=== PATIENT | female | born 1945 | race Caucasian/White ===

== ENCOUNTER 2017-11-09 09:51 | Outpatient (CLI) | payer MEDICARE ==
[2017-11-09 11:18] LABS: Anion Gap 17 mmol/L (10-20); BUN (Urea Nitrogen) 22 mg/dL (9.8-20.1); Calc. Creatinine Clearance 0 mL/min (70-130); Calcium 9.9 mg/dL (7.8-10.44); Carbon Dioxide 26 mmol/L (23-31); Chloride 103 mmol/L (98-107); Estimated GFR-MDRD 48; Glucose 268 mg/dL (83-110); Sodium 142 mmol/L (136-145)
== END 2017-11-09 09:52 | disposition home or self-care (01) ==
LOC: LABBT 09:51
PROVIDERS: ATTEND Neurological Surgery
DX: Z01.818 Encounter for other preprocedural examination (principal); M48.061 Spinal stenosis, lumbar region without neurogenic claudication
CPT/HCPCS: 80048

== ENCOUNTER 2017-11-13 05:41 | Day surgery (SDC) | payer MEDICARE ==
[2017-11-09 10:08] VITALS: BMI 42.5
--- NOTE | 2017-11-13 05:54 | HP ---
HISTORY OF PRESENT ILLNESS: Ms. Leary is a 72-year-old woman who presents for evaluation for roughl y 5 years or so with low back pain and neurogenic claudication symptoms. She has had this previously treated with injections which resulted in significant improvement but then her pain has been worseni ng again. She has repeat MRI that shows progressive change in her spinal stenosis. Right now, she h as severe canal stenosis at L3-L4 with associated slip but is not unstable on flexion, extension view s. She hopes to treat this surgically if possible. PAST MEDICAL HISTORY: Sleep apnea, sciatica, hypertension, hypercholesterolemia, arthritis, diabetes , and breast cancer. PAST SURGICAL HISTORY: Shoulder replacement, cataract resection, knee replacement, breast lumpectomy . CURRENT MEDICATIONS: Invokana, glucosamine, PreserVision gabapentin, glimepiride, Celebrex, metoprol ol, ,tamoxefin, Zyrtec, Lantus and Victoza. ALLERGIES: No known drug allergies. PHYSICAL EXAMINATION: NEUROLOGIC: Patient is alert and oriented x3. Gait is somewhat slow and antalgic. She has no weak ness in the lower extremities bilaterally. ASSESSMENT: Neurogenic claudication in the presence of lumbar stenosis. PLAN: Dr. Fang met with the patient, reviewed imaging and advocated for an L3-L4 decompression. He explained to the patient the risks, benefits, and alternatives to the procedure. The patient expres sed understanding and would like to move forward with surgery as discussed. I do believe the patient is mentally competent and capable of making medical decisions for herself and move forward with surg porfirio as planned.
[2017-11-13] MEDS ORDERED: Bupivacaine 0.5% 10 ML VIAL ONE (06:17)
[2017-11-13] MEDS ORDERED: Thrombin 5000 UNITS/5 ML VIAL ONE (06:17)
[2017-11-13] MEDS ORDERED: CEFAZOLIN/Water 2 GM/20 ML SYRINGE ONE ×2 (06:34→10:19)
[2017-11-13] MEDS ORDERED: Fentanyl 100 MCG/2 ML VIAL ONE ×2 (06:44→09:06)
--- NOTE | 2017-11-13 09:55 | OP ---
DATE OF PROCEDURE: 11/13/2017 SURGEON: Porfirio Fang M.D. [employer]OR ATTENDANT: Jr Wells PA-C. INDICATION: Pain. DIAGNOSIS: Lumbar stenosis. PROCEDURE: L3-L4 lumbar decompression. ANESTHESIA: General. TECHNIQUE: The patient was brought into the operating room and placed under general anesthesia. She was flipped from a supine to a prone position on the operating room table. A linear incision was pl anned over the L3-L4 segment. After prepping and draping and after an appropriate operative pause, t he incision was created. Soft tissues were swept away from midline. Self-retaining retractors were placed in the wound for optimal exposure. After confirming the appropriate level with C-arm fluorosc opy, an Adson rongeur was used to remove the spinous process at the L3-L4 segment. A high-speed cutt ing drill bit as well as 2, 3 and 4-mm Kerrisons were then used to perform a laminectomy along the in ferior aspect of L3 and superior aspect of L4. After decompressing the central canal and lateral rec esses, the wound was irrigated. Hemostasis was maintained throughout. The wound was then closed in anatomic layers and a pressure dressing was applied. There were no known procedural complications.
[2017-11-13] MEDS ORDERED: Ketorolac Tromethamine 30 MG/ML VIAL ONE (16:45)
[2017-11-13] MEDS ORDERED: PHENYLEPHRINE-NS 100 MCG/ML 10 ML SYRINGE ONE (16:45)
[2017-11-13] MEDS ORDERED: Glycopyrrolate 0.2 MG/ML 5 ML SYRINGE ONE (16:45)
[2017-11-13] MEDS ORDERED: Ondansetron HCl/PF 4 MG/2 ML Vial ONE (16:45)
[2017-11-13] MEDS ORDERED: Lidocaine 1% PF 5 ML VIAL ONE (16:45)
[2017-11-13] MEDS ORDERED: Propofol 200 MG/20 ML VIAL ONE (16:45)
[2017-11-13] MEDS ORDERED: Dexamethasone 20 MG/5 ML VIAL ONE (16:45)
== END 2017-11-13 10:55 | disposition home or self-care (01) ==
LOC: SDC 05:41
PROVIDERS: ATTEND Neurological Surgery
PROC: 01NB0ZZ Release Lumbar Nerve, Open Approach (ICD-10-PCS; principal; 2017-11-13)
DX: M48.062 Spinal stenosis, lumbar region with neurogenic claudication (principal); M54.30 Sciatica, unspecified side; E78.00 Pure hypercholesterolemia, unspecified; M19.90 Unspecified osteoarthritis, unspecified site; C50.919 Malignant neoplasm of unspecified site of unspecified female breast; G47.33 Obstructive sleep apnea (adult) (pediatric); K52.9 Noninfective gastroenteritis and colitis, unspecified; E10.22 Type 1 diabetes mellitus with diabetic chronic kidney disease; I12.9 Hypertensive chronic kidney disease with stage 1 through stage 4 chronic kidney disease, or unspecified chronic kidney disease; N18.9 Chronic kidney disease, unspecified; Z79.1 Long term (current) use of non-steroidal anti-inflammatories (NSAID); Z79.810 Long term (current) use of selective estrogen receptor modulators (SERMs); Z79.899 Other long term (current) drug therapy; Z99.89 Dependence on other enabling machines and devices; Z98.42 Cataract extraction status, left eye; Z98.41 Cataract extraction status, right eye; Z96.651 Presence of right artificial knee joint; Z96.612 Presence of left artificial shoulder joint; Z96.619 Presence of unspecified artificial shoulder joint; Z96.1 Presence of intraocular lens; Z90.89 Acquired absence of other organs; Z98.890 Other specified postprocedural states
CPT/HCPCS: 36416; 76001; 96374; J1100; J1885; J2001; J2405; J2704; J3010; J3490

== ENCOUNTER 2018-07-16 09:38 | Outpatient (CLI) | payer MEDICARE ==
--- NOTE | 2018-07-16 11:37 | ULT ---
LIMITED RIGHT BREAST ULTRASOUND: 07/16/2018 CLINICAL HISTORY: Abnormal mammogram. FINDINGS: Limited sonographic interrogation was performed of the right breast, at the 10 o'clock position, in t he region of mammographic concern. There is a round, hypoechoic mass with posterior shadowing and il l-defined margins present, measuring about 6 mm. IMPRESSION: BI-RADS category 4-Suspicious abnormality. Biopsy is recommended. This would be amenable to ultraso und-guided biopsy. POS: KAMALA
== END 2018-07-16 09:39 | disposition home or self-care (01) ==
LOC: BICMAMMO 09:38
PROVIDERS: ATTEND Specialist
DX: C50.911 Malignant neoplasm of unspecified site of right female breast (principal); Z80.3 Family history of malignant neoplasm of breast; Z08 Encounter for follow-up examination after completed treatment for malignant neoplasm; Z85.3 Personal history of malignant neoplasm of breast
CPT/HCPCS: 77063; 77067

== ENCOUNTER 2018-07-28 11:33 | Outpatient (CLI) | payer MEDICARE | END 2018-07-28 11:34 | disposition home or self-care (01) | LOC: BICMAMMO 11:33 | PROVIDERS: ATTEND Specialist | DX: N64.9 Disorder of breast, unspecified (principal); Z98.890 Other specified postprocedural states | CPT/HCPCS: 77063; 77067 ==

== ENCOUNTER 2018-11-18 09:18 | Outpatient (CLI) | payer MEDICARE ==
--- NOTE | 2018-11-18 10:45 | BD ---
DEXA BONE MINERAL DENSITOMETRY EXAM, MINERAL DENSITY STUDY: HISTORY: Unspecified menopausal and perimenopausal disorder. COMPARISON: DEXA scan 11/17/2016. FINDINGS: Lumbar Spine: BMD (g/cm2) L1 1.371 T-Score: 3.5 5.6 L2 1.380 T-Score: 3.2 5.6 L3 1.388 T-Score: 2.8 5.3 L4 1.252 T-Score: 1.7 4.8 L1-L4 1.326 T-Score: 2.6 5.0 WHO classification is normal. Femoral Neck: 0.939 T-Score: 0.8 2.9 Total Femur: 1.129 T-Score: 1.5 3.3 WHO classification normal. The bone mineral density is very similar to the comparison examination. Impression: Similar bone mineral density. POS: KAMALA
== END 2018-11-18 09:19 | disposition home or self-care (01) ==
LOC: BICMAMMO 09:18
PROVIDERS: ATTEND Internal Medicine Hematology & Oncology
DX: Z13.820 Encounter for screening for osteoporosis (principal); N95.9 Unspecified menopausal and perimenopausal disorder; C50.919 Malignant neoplasm of unspecified site of unspecified female breast
CPT/HCPCS: 77080

== ENCOUNTER 2019-02-17 09:15 | Outpatient (CLI) | payer MEDICARE ==
--- NOTE | 2019-02-17 10:03 | MMO ---
Right Breast MAMMO Unilat Diag DDI RT+APOORVA. CLINICAL HISTORY: Patient is 73 years old and is seen for diagnostic exam. The patient has the following family history of breast cancer: mother. 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 The patient has a history of right Ultrasound Guided Core Biopsy in June, - benign, right Lumpectomy in May, and right Ultrasound Guided Core Biopsy in April,. VIEWS: The views performed were: right craniocaudal with tomosynthesis; right mediolateral oblique with tomosynthesis; and right mediolateral. FILMS COMPARED: The present examination has been compared to prior imaging studies performed at [facility] on 05/10/2015, 06/11/2016, 07/14/2017 and 07/16/2018. MAMMOGRAM FINDINGS: The breast is heterogeneously dense, which could obscure a lesion on mammography. There is a stable area of architectural distortion with associated post-surgical scar and biopsy clip seen in the right breast. IMPRESSION: FOLLOW-UP IN 6 MONTHS IS RECOMMENDED. THE RESULTS OF THIS EXAM WERE SENT TO THE PATIENT. ACR BI-RADS Category 3 - Probably benign finding - short interval follow-up suggested. [facility] will notify the patient of the need for additional imaging services. MAMMOGRAPHY NOTE: 1. A negative mammogram report should not delay a biopsy if a dominant of clinically suspicious mass is present. 2. Approximately 10% to 15% of breast cancers are not detected by mammography. 3. Adenosis and dense breasts may obscure an underlying neoplasm.
== END 2019-02-17 09:16 | disposition home or self-care (01) ==
LOC: BICMAMMO 09:15
PROVIDERS: ATTEND Specialist
DX: Z08 Encounter for follow-up examination after completed treatment for malignant neoplasm (principal); Z80.3 Family history of malignant neoplasm of breast; Z85.3 Personal history of malignant neoplasm of breast; Z98.890 Other specified postprocedural states
CPT/HCPCS: 77065; G0279

== ENCOUNTER 2019-08-23 10:05 | Outpatient (CLI) | payer MEDICARE ==
--- NOTE | 2019-08-23 10:53 | MMO ---
Bilateral MAMMO Bilat Diag DDI+APOORAV. CLINICAL HISTORY: Patient is 73 years old and is seen for diagnostic exam. The patient has the following family history of breast cancer: mother. The patient has a history of Ultrasound guided core biopsy procedure revealed invasive ductal right breast carcinoma in April, and invasive ductal right breast carcinoma in 2014. The patient has a history of right Ultrasound Guided Core Biopsy in June, - benign, right Lumpectomy in May, and right Ultrasound Guided Core Biopsy in April,. VIEWS: The views performed were: bilateral craniocaudal with tomosynthesis; bilateral mediolateral oblique with tomosynthesis; and bilateral mediolateral with tomosynthesis. FILMS COMPARED: The present examination has been compared to prior imaging studies performed at [facility] on 06/11/2016, 07/14/2017, 07/16/2018 and 02/17/2019. This study has been interpreted with the assistance of computer-aided detection. MAMMOGRAM FINDINGS: There are scattered fibroglandular densities. Finding 1: There is a stable post-surgical scar seen in the outer region of the right breast. Finding 2: There are multiple stable dystrophic calcifications seen in the right breast. There are no suspicious masses, suspicious calcifications, or new areas of architectural distortion. IMPRESSION: THERE IS NO MAMMOGRAPHIC EVIDENCE OF MALIGNANCY. A ROUTINE FOLLOW-UP MAMMOGRAM IN 1 YEAR IS RECOMMENDED. THE RESULTS OF THIS EXAM WERE SENT TO THE PATIENT. ACR BI-RADS Category 2 - Benign finding MAMMOGRAPHY NOTE: 1. A negative mammogram report should not delay a biopsy if a dominant of clinically suspicious mass is present. 2. Approximately 10% to 15% of breast cancers are not detected by mammography. 3. Adenosis and dense breasts may obscure an underlying neoplasm. Reported by: SAKSHI OWEN MD Electonically Signed: [id number]
== END 2019-08-23 10:06 | disposition home or self-care (01) ==
LOC: BICMAMMO 10:05
PROVIDERS: ATTEND Specialist
DX: Z08 Encounter for follow-up examination after completed treatment for malignant neoplasm (principal); Z85.3 Personal history of malignant neoplasm of breast
CPT/HCPCS: 77066; G0279

== ENCOUNTER 2020-06-07 11:03 | Outpatient (CLI) | payer MEDICARE ==
--- NOTE | 2020-06-07 11:25 | BD ---
EXAM: Bone densitometry using DEXA HISTORY: 74 yo female. Screening for postmenopausal osteoporosis FINDINGS: L1--bone mineral density 1.365 g/sq cm; T score 3.4 ; Z score 5.6 L2--bone mineral density 1.441 g/sq cm; T score 3.8 ; Z score 6.2 L3--bone mineral density 1.309 g/sq cm; T score 2.0 ; Z score 4.6 L4--bone mineral density 1.314 g/sq cm; T score 2.3 ; Z score 5.0 Total L1-L4--bone mineral density 1.356 g/sq cm; T score 2.8 ; Z score 5.3 Left femoral neck--bone mineral density0.962; T score 1.0 ; Z score 3.2 Total proximal left femur--bone mineral density 1.207; T score 2.2 ; Z score 4.0 There has been an interval improvement of 1.5% in the BMD of the lumbar spine and a improvement of 6.9% in the BMD of the proximal femur since the previous study of 11/18/2018. IMPRESSION: Normal BMD
== END 2020-06-07 11:04 | disposition home or self-care (01) ==
LOC: BICMAMMO 11:03
PROVIDERS: ATTEND Family Medicine
DX: M81.0 Age-related osteoporosis without current pathological fracture (principal)
CPT/HCPCS: 77080

== ENCOUNTER 2020-08-15 09:52 | Outpatient (CLI) | payer MEDICARE ==
--- NOTE | 2020-08-15 11:34 | RAD ---
2 VIEW CHEST: Date: 08/15/2020 INDICATION: Preop. COMPARISON: 06/08/2015. FINDINGS: Heart size upper normal and stable. The vascular and interstitial markings are prominent, but similar in appearance to the prior study. Elevated right hemidiaphragm is stable. No evidence of effusion. L eft shoulder prosthesis again noted. Vertebral bodies maintain height with degenerative changes noted . IMPRESSION: Vascular and interstitial prominence similar to prior exam. No evidence of acute interval change. POS: [facility]
== END 2020-08-15 09:53 | disposition home or self-care (01) ==
LOC: BICRAD 09:52
PROVIDERS: ATTEND Family Medicine
DX: Z01.818 Encounter for other preprocedural examination (principal)
CPT/HCPCS: 36415; 71046; 80053; 83036; 85025

== ENCOUNTER 2020-08-28 13:38 | Outpatient (CLI) | payer MEDICARE ==
--- NOTE | 2020-08-28 14:19 | MMO ---
Bilateral MAMMO Bilat Diag DDI+APOORVA. CLINICAL HISTORY: Patient is 74 years old and is seen for diagnostic exam. The patient has the following family history of breast cancer: mother. The patient has a history of Ultrasound guided core biopsy procedure revealed invasive ductal right breast carcinoma in April, and invasive ductal right breast carcinoma in 2014. The patient has a history of right Ultrasound Guided Core Biopsy in June, - benign, right Lumpectomy in May, and right Ultrasound Guided Core Biopsy in April,. VIEWS: The views performed were: bilateral craniocaudal with tomosynthesis; bilateral mediolateral oblique with tomosynthesis; and bilateral mediolateral with tomosynthesis. FILMS COMPARED: The present examination has been compared to prior imaging studies performed at [facility] on 07/14/2017, 07/16/2018, 02/17/2019 and 08/23/2019. This study has been interpreted with the assistance of computer-aided detection. MAMMOGRAM FINDINGS: There are scattered fibroglandular densities. Benign calcifications are noted bilaterally. There are stable right post-operative changes. There are no suspicious masses, suspicious calcifications, or new areas of architectural distortion. IMPRESSION: THERE IS NO MAMMOGRAPHIC EVIDENCE OF MALIGNANCY. A ROUTINE FOLLOW-UP MAMMOGRAM IN 1 YEAR IS RECOMMENDED. THE RESULTS OF THIS EXAM WERE SENT TO THE PATIENT. ACR BI-RADS Category 2 - Benign finding MAMMOGRAPHY NOTE: 1. A negative mammogram report should not delay a biopsy if a dominant of clinically suspicious mass is present. 2. Approximately 10% to 15% of breast cancers are not detected by mammography. 3. Adenosis and dense breasts may obscure an underlying neoplasm. Reported by: MIRIAM GIL MD Electonically Signed: [id number]
== END 2020-08-28 13:39 | disposition home or self-care (01) ==
LOC: BICMAMMO 13:38
PROVIDERS: ATTEND Specialist
DX: Z08 Encounter for follow-up examination after completed treatment for malignant neoplasm (principal); Z85.3 Personal history of malignant neoplasm of breast
CPT/HCPCS: 77066; G0279

== ENCOUNTER 2020-09-05 06:37 | Outpatient (CLI) | payer MEDICARE ==
[2020-09-05 12:22] LABS: #Basophils 0.1 10x3/uL (0.0-0.2); #Eosinphils 0.1 10x3/uL (0.0-0.5); #Monocytes 0.7 10x3/uL (0.0-1.1); #Neutrophils 4.6 10x3/uL (1.5-8.4); %Basophils 0.6 % (0.0-2.0); %Eosinophils 1.6 % (0.0-6.0); %Lymphocytes 37.4 % (18.0-47.0); %Monocytes 8.1 % (0.0-10.0); Hemoglobin 12.5 g/dL (12.0-16.0); Platelet Count 226 10x3/uL (130-400); RBC Distribution Width 12.1 % (11.5-14.5); Red Blood Cell (RBC) Count 3.79 10x6/uL (3.90-5.20); White Blood Cell (WBC) Count 8.8 10x3/uL (4.5-11.0)
== END 2020-09-05 06:38 | disposition home or self-care (01) ==
LOC: LABBT 06:37
PROVIDERS: ATTEND Orthopaedic Surgery
DX: Z01.818 Encounter for other preprocedural examination (principal); M16.0 Bilateral primary osteoarthritis of hip
CPT/HCPCS: 85025; 93005; 93010

== ENCOUNTER 2020-09-05 11:15 | Inpatient (IN) | payer MEDICARE ==
[2020-09-05 12:06] LABS: Bilirubin Neg (Negative); Blood, Urine 10 (Negative); Clarity Slightly Cloudy (Clear); Glucose, Urine (Dipstick) Normal (Negative); Ketone, Urine Negative (Negative); Leukocyte 500 (Negative); Nitrite Negative (Negative); Protein, Urine (Dipstick) 30 mg/dl (Neg-Trace); Urobilinogen Normal mg/dL (Less than 2)
[2020-09-05 12:26] LABS: Anion Gap 17 mmol/L (10-20); BUN (Urea Nitrogen) 21 mg/dL (9.8-20.1); Calc. Creatinine Clearance 0 mL/min (70-130); Calcium 9.2 mg/dL (7.8-10.44); Carbon Dioxide 22 mmol/L (23-31); Chloride 104 mmol/L (98-107); Glucose 197 mg/dL (83-110); Potassium 4.4 mmol/L (3.5-5.1); Sodium 139 mmol/L (136-145)
[2020-09-05 12:37] LABS: Transitional Epithelial 0-3 HPF (None Seen); WBC/HPF 21-50 HPF (0-3)
[2020-09-05 12:38] LABS: Bacteria/HPF 2+ HPF (None Seen)
[2020-09-05 20:53] LABS: SARS-CoV-2 MS2 Positive; SARS-CoV-2 N Gene Negative; SARS-CoV-2 S Gene Negative; SARS-CoV-2 by NAA Not Detected (NotDetected); SARS-CoV-2 orf1ab Negative
--- NOTE | 2020-09-06 13:45 | HP ---
HISTORY OF PRESENT ILLNESS: The patient is a 74-year-old female with a 2-year history of progressive problems with both hips, left greater than right. She has had no injury. She has had progressive groin pain, which radiates into her leg, which is worse with activities including walking, getting dressed, and sleeping. She is now interfering with day-to-day activities and has persisted despite rest, restriction of activities, anti-inflammatory medications. PAST HISTORY: The patient has had previous back surgery and has had chronic back problems and receives injection from Pain Management. She also has history of degenerative arthritis of her knee. She has a history of diabetes, breast cancer in remission, hypertension, previous right total knee replacement, aortic valve sclerosis and atherosclerotic cardiovascular disease. She has been seen and cleared for surgery by Dr. Lezama and Dr. Francis. CURRENT MEDICATIONS: Include; 1. Multivitamins. 2. Glucosamine. 3. Magnesium. 4. Calcitriol. 5. Zyrtec. 6. Tamoxifen. 7. Victoza. 8. Glimepiride. 9. Lantus insulin. 10. Januvia. 11. Metoprolol. 12. . 13. Crestor. 14. Tramadol. ALLERGIES: SHE HAS NO KNOWN ALLERGIES. FAMILY HISTORY: Otherwise, unremarkable. SOCIAL HISTORY: Otherwise, unremarkable. REVIEW OF SYSTEMS: Otherwise, unremarkable. PHYSICAL EXAMINATION: GENERAL: Reveals a healthy elderly female. HEENT: Unremarkable. NECK: Supple. CHEST: Clear. HEART: Regular rate and rhythm. ABDOMEN: Soft and nontender. PELVIC, RECTAL, AND BREASTS: Deferred. EXTREMITIES: Pertinent findings of the left hip, there is tenderness over the posterior hip bilaterally. There is pain with range of motion of the left hip and groin pain with internal rotation. There is a left antalgic gait. Neurovascular exam is intact. DIAGNOSTIC STUDIES: X-rays of the pelvis of the left hip reveal moderately severe DJD of the left hip and mild DJD of the right hip. IMPRESSION: 1. Degenerative arthritis of both hips, left symptomatic more than right. 2. History of diabetes. 3. History of atherosclerotic cardiovascular disease. 4. History of hypertension. 5. History of breast cancer. PLAN: Left total hip replacement. The nature of the surgery, length of recovery, and potential complications such as infection, loss of motion, incomplete relief, thromboembolic phenomena, neurovascular injury, possible transfusion, and need for revision have been discussed in detail. Job ID: [id number]
[2020-09-10] MEDS ORDERED: Vancomycin 1.5 GRAM/300 ML BAG ONE (06:13)
[2020-09-10] MEDS ORDERED: Sodium Chloride 0.9% 100 ML ONE ×2 (06:13→09:36)
[2020-09-10] MEDS ORDERED: Tranexamic Acid 1,000 MG/10 ML VIAL ONE ×2 (06:13→09:35)
[2020-09-10] MEDS ORDERED: Fentanyl 100 MCG/2 ML VIAL ONE ×3 (06:31→06:37)
[2020-09-10] MEDS ORDERED: Midazolam HCl 2 mg/2 ml Vial ONE (06:37)
[2020-09-10] MEDS ORDERED: Bupivacaine 0.25% HCL 30 ML VIAL ONE (07:21)
[2020-09-10] MEDS ORDERED: Promethazine HCl 25 MG/ML VIAL IM PRN (09:27)
[2020-09-10] MEDS ORDERED: Ondansetron HCl/PF 4 MG/2 ML Vial IVP PRN (09:27)
[2020-09-10] MEDS ORDERED: Promethazine HCl 25 MG/ML VIAL SLOW IVP PRN ×2 (09:27→09:49)
[2020-09-10] MEDS ORDERED: Tranexamic Acid 1,000 MG in Sodium Chloride 0.9% 100 ML IVPB SCH ×2 (09:30→09:49)
--- NOTE | 2020-09-10 09:45 | RAD ---
XR Hip Lt 2-3 View History: Postop left hip Comparison: None. Findings: Satisfactory appearance left hip arthroplasty. Expected postoperative gas and edema. Moderate vascular calcifications. Impression: Satisfactory appearance left hip arthroplasty.
[2020-09-10] MEDS ORDERED: Ondansetron PF 4 MG/2 ML Vial IVP PRN (09:49)
[2020-09-10] MEDS ORDERED: diphenhydrAMINE 25 MG CAP PO PRN (09:49)
[2020-09-10] MEDS ORDERED: traMADol HCl 50 MG TAB PO PRN (09:49)
[2020-09-10] MEDS ORDERED: Fentanyl 100 MCG/2 ML VIAL SLOW IVP PRN ×2 (09:49)
[2020-09-10] MEDS ORDERED: Zolpidem Tartrate 5 MG TAB PO PRN (09:49)
[2020-09-10] MEDS ORDERED: Acetaminophen 325 MG TAB PO PRN (09:49)
[2020-09-10] MEDS ORDERED: HYDROcodone/Acetaminophen 10/325 mg Tablet PO PRN ×2 (09:49)
--- NOTE | 2020-09-10 10:12 | OP ---
DATE OF PROCEDURE: 09/10/2020 Surgeon: Skyler Luque M.D. Toe Puller: KARMEN Candelaria, Present Throughout entire procedure. His presence essential for exposure, retraction, placement of components, and wound closure. ANESTHESIA: General plus epidural. PREOPERATIVE DIAGNOSIS: Degenerative arthritis, left hip. POSTOPERATIVE DIAGNOSIS: Degenerative arthritis, left hip. PROCEDURE PERFORMED: Left total hip replacement with uncemented Lolita Trident II Tritanium acetabular shell 48 mm with X3 polyethylene insert and uncemented Lolita Accolate II femoral stem size #2 with 132 degree neck angle and 32 mm delta ceramic femoral head standard neck length. DESCRIPTION OF PROCEDURE: After satisfactory anesthesia was induced in the supine position, the patient was placed in lateral decubitus position and this position held with hip positioning device. The patient's left hip was then prepped and draped in routine sterile fashion. The hip was approached through a lateral curvilinear incision centered over the greater trochanter, carried down the subcutaneous tissues and bleeding points were controlled with Bovie cautery. IT band and gluteal fascia were split in-line with the skin incision. A direct lateral approach to the hip joint was accomplished by dividing the anterior third of the gluteus medius and minimus tendons with Bovie cautery and reflecting this as a single flap anteriorly and medially along with the vastus lateralis. Anterior capsulectomy was performed. The hip dislocated anteriorly. There was marked degenerative arthritis of the hip with large areas of exposed bone. The femoral neck was osteotomized with an oscillating saw using a trial prosthesis as a guide. The acetabulum was exposed and cleaned of all soft tissue and debris and then reamed in sequence down to bleeding subchondral bone to a total of 48 mm. It was felt that a 48 mm Trident II Tritanium acetabular shell could be placed in a press-fit fashion. The permanent component was then hammered in position, there was good fit and stability of the acetabular shell and the permanent X3 polyethylene liner was snapped into place. The proximal femur was then exposed and opened with a box osteotome and rasped in sequence to accept a #2 Accolate II femoral rasp. The 132-degree neck angle trunnion was then placed and reduction was accomplished using the standard neck length 32 mm femoral head. There was good fit and stability. The hip was again dislocated anteriorly and the trial components were removed. The permanent #2 Accolade II femoral stem was then hammered in position. There was again good fit and stability of the component. The permanent standard neck length 32 mm delta ceramic femoral head was then placed on the trunnion, the hip again reduced and found to be stable. The wound was copiously irrigated with pulsatile lavage. The abductors were repaired with interrupted #2 Vicryl. The IT band and gluteal fascia were closed with interrupted #2 Vicryl and a running #2 Quill. Subcutaneous tissues were closed with interrupted #2 Vicryl and a running 0 Quill suture and the skin closed with running subcuticular 3-0 Monoderm and SurgiSeal skin adhesive. Sterile dressing was applied and the patient turned to supine position and a pillow placed in her legs. Sequential compression devices were applied. She was awakened, taken to recovery room in stable condition. There were no apparent intraoperative complications. The estimated blood loss was 250 mL. Job ID: [id number] MTDD
[2020-09-10] MEDS ORDERED: Lidocaine 1% PF 5 ML VIAL ONE (10:30)
[2020-09-10] MEDS ORDERED: PROPOFOL 200 MG/20 ML VIAL ONE (10:30)
[2020-09-10] MEDS ORDERED: Rocuronium Bromide 10 MG/ML (10ML VIAL) ONE (10:30)
[2020-09-10] MEDS ORDERED: Glycopyrrolate 0.2 MG/ML 5 ML SYRINGE ONE (10:30)
[2020-09-10] MEDS ORDERED: Ondansetron PF 4 MG/2 ML Vial ONE (10:30)
[2020-09-10] MEDS ORDERED: PHENYLEPHRINE-NS 100 MCG/ML 10 ML SYRINGE ONE (10:30)
[2020-09-10] MEDS ORDERED: ePHEDrine 50 MG/ML VIAL ONE (10:30)
[2020-09-10] MEDS ORDERED: Lidocaine 1.5% w/Epi 1:200K 30 ML VIAL (Epid Use) ONE (10:34)
[2020-09-10 12:29] VITALS: BMI 41.5
[2020-09-10] MEDS: Sodium Chloride 0.9% 1,000 ML IV SCH ×2 (12:59→20:20)
[2020-09-10] MEDS ORDERED: HumaLOG 300 UNITS/3 ML VIAL SC PRN (13:38)
[2020-09-10] MEDS ORDERED: Dextrose 5% in Water 1,000 ML IV PRN (13:38)
[2020-09-10] MEDS ORDERED: Dextrose 50% Abboject 50 ML SYRINGE SLOW IVP PRN (13:38)
[2020-09-10] MEDS: CEFAZOLIN 2 GM in Premix Bag 1 BAG IVPB SCH ×2 (13:38→20:25)
--- NOTE | 2020-09-10 14:06 | CON ---
DATE OF CONSULTATION: PRIMARY CARE PHYSICIAN: Wil Lezama MD HISTORY OF PRESENT ILLNESS: The patient is a 74-year-old female with past medical history significant for diabetes type 2, hyperlipidemia, hypertension, breast cancer, and previous knee replacement, who presented for left total hip replacement. The patient was cleared by Cardiology and her primary care physician prior to surgery. She states that her chronic health conditions are well controlled and has had no issues with them recently. The patient had her surgery earlier today and states she is feeling well. PAST MEDICAL HISTORY: Diabetes type 2; breast cancer, in remission; aortic valve sclerosis; CAD; hypertension; hyperlipidemia; obstructive sleep apnea, using CPAP. PAST SURGICAL HISTORY: Right total knee replacement, back surgery. ALLERGIES: NO KNOWN DRUG ALLERGIES. MEDICATIONS: 1. Tramadol 50 mg t.i.d. p.r.n. 2. Januvia 25 mg p.o. daily. 3. Ropinirole 0.5 mg p.o. q.p.m. 4. Multivitamin daily. 5. Tamoxifen 20 mg at night. 6. Rosuvastatin 10 mg at night. 7. Metoprolol 50 mg at night. 8. Magnesium oxide 400 mg daily. 9. Victoza 1.8 mg subcu at night. 10. Probiotic one capsule daily. 11. Lantus 75 units q.p.m. 12. Glucosamine twice a day. 13. Amaryl 2 mg p.o. twice a day. 14. Vitamin B12 daily. 15. Zyrtec at night. 16. Calcitriol 0.25 mcg p.o. q.2 days. 17. Tylenol Arthritis as needed. SOCIAL HISTORY: The patient lives at home with her . Denies smoking, alcohol, or drug use. FAMILY HISTORY: Noncontributory to this stay. REVIEW OF SYSTEMS: All other review of systems negative unless noted in the HPI. PHYSICAL EXAMINATION: VITAL SIGNS: Temp 97, pulse 68, respiratory rate 16, O2 saturation 96% on 2 L, blood pressure 101/65. GENERAL: Appears nontoxic, in no acute distress. HEENT: Head atraumatic, normocephalic. PERRLA. Extraocular muscles intact. NECK: Supple. RESPIRATORY: Clear to auscultation bilaterally. No rhonchi, no wheezes, no rales. CARDIOVASCULAR: Regular rate and rhythm. Murmur 3/6 present. No rubs, no gallops. ABDOMEN: Soft, nontender, nondistended. EXTREMITIES: No edema. No cyanosis. NEURO: No focal deficits. A and O x3. LABS: Lab work was completed on 09/05/2020. White blood cells 8.8, hemoglobin 12.5, hematocrit 37.9. Sodium 139, potassium 4.4, carbon dioxide 22, BUN 21, creatinine 1.11, GFR 48. COVID swab negative. EKG showed sinus rhythm with PAC, 82 beats per minute. IMPRESSION AND PLAN: The patient appears to be doing well post surgery. She does have a history of diabetes type 2, which we will follow with Accu-Cheks a.c. and at bedtime and aggressive sliding scale insulin along with patient's home medications. She has history of hypertension. Her medications have been restarted. Take vital signs q.4 hours, keep monitoring them. The patient has her CPAP at the bedside for her obstructive sleep apnea. She will be able to use this at night. The patient currently is on oxygen, which she said that was just postop and that she normally does not wear it at home. She should be able to wean off it this afternoon. Looking at her labs, it looks like she has CKD. She does appear to be at her baseline of her kidney function. We will continue to monitor this tomorrow and see if any rehydration is needed. The patient with SCDs in place for VTE prophylaxis. Her surrogate decision maker is her . She does have advanced directives in place. We will continue to follow along with the patient throughout the course of her stay here. Thank you for this consultation. Job ID: [id number]
[2020-09-10] MEDS ORDERED: Cepastat Lozenges 1 LOZ PO PRN (16:41)
[2020-09-10] MEDS: HumaLOG 300 UNITS/3 ML VIAL SC PRN (17:05)
[2020-09-10] MEDS ORDERED: Vancomycin 1.5 GRAM/300 ML BAG 1.5 GM in Premix Bag 1 BAG IVPB SCH (19:00)
[2020-09-10] MEDS: Glimepiride 2 MG TAB PO SCH (20:21)
[2020-09-10] MEDS: rOPINIRole HCl 0.5 MG TAB PO SCH (20:21)
[2020-09-10] MEDS: Rosuvastatin 10 MG TAB PO SCH (20:21)
[2020-09-10] MEDS: Aspirin 81 mg Enteric Coated Tablet PO SCH (20:22)
[2020-09-10] MEDS: Ferrous Gluconate 324 MG TAB PO SCH (20:22)
[2020-09-10] MEDS: Senokot S 8.6-50 MG TAB PO SCH (20:22)
[2020-09-10] MEDS: Loratadine 10 MG TAB PO SCH (20:22)
[2020-09-10] MEDS: Insulin Glargine 75 UNITS in Pre-Filled Syringe 1 EACH SC SCH (20:24)
[2020-09-10] MEDS: LIRAGLUTIDE 0.6 MG/0.1 ML SC SCH (20:25)
[2020-09-11] MEDS: fentaNYL Citrate/PF 500 MCG, Bupivacaine 10 ML in Sodium Chloride 0.9% 80 ML EPIDURAL SCH ×2 (01:42→18:30)
[2020-09-11] MEDS: Sodium Chloride 0.9% 1,000 ML IV SCH ×2 (04:48→18:22)
[2020-09-11 06:06] LABS: #Eosinphils 0.1 thou/uL (0.0-0.7); #Lymphocytes 2.5 thou/uL (1.20-3.40); #Monocytes 1.1 thou/uL (0.11-0.59); #Neutrophils 7.8 thou/uL (1.40-6.50); %Basophils 0.1 % (0.0-1.0); %Lymphocytes 21.9 % (21.0-51.0); %Monocytes 9.3 % (0.0-10.0); %Neutrophils 67.8 % (42.0-75.0); Hemoglobin 10.4 g/dL (12.0-16.0); Mean Corpuscular Volume 99.8 fL (78.0-98.0); Mean Platelet Volume 9.7 fL (7.4-10.4); Platelet Count 161 thou/uL (130-400); RBC Distribution Width 11.3 % (11.5-14.5); Red Blood Cell (RBC) Count 3.06 mill/uL (4.20-5.40); White Blood Cell (WBC) Count 11.5 thou/uL (4.8-10.8)
[2020-09-11 06:27] LABS: Anion Gap 12 mmol/L (10-20); BUN (Urea Nitrogen) 16 mg/dL (9.8-20.1); Calc. Creatinine Clearance 72 mL/min (70-130); Calcium 8.2 mg/dL (7.8-10.44); Carbon Dioxide 26 mmol/L (23-31); Chloride 103 mmol/L (98-107); Glucose 164 mg/dL (83-110); Sodium 137 mmol/L (136-145)
[2020-09-11] MEDS: Glimepiride 2 MG TAB PO SCH ×2 (08:52→20:46)
[2020-09-11] MEDS: Multivitamin W/ Minerals 1 TAB PO SCH (08:52)
[2020-09-11] MEDS: Magnesium Oxide 400 MG TAB PO SCH (08:52)
[2020-09-11] MEDS: Senokot S 8.6-50 MG TAB PO SCH ×2 (08:52→20:43)
[2020-09-11] MEDS: Ferrous Gluconate 324 MG TAB PO SCH ×2 (08:52→20:43)
[2020-09-11] MEDS: Cyanocobalamin (Vitamin B-12) 1,000 MCG TAB PO SCH (08:52)
[2020-09-11] MEDS: Lactinex Tablet PO SCH (08:52)
[2020-09-11] MEDS: Aspirin 81 mg Enteric Coated Tablet PO SCH ×2 (08:52→20:43)
[2020-09-11] MEDS: Alogliptin 6.25 MG TAB PO SCH (08:53)
[2020-09-11] MEDS ORDERED: Calcitriol 0.25 MCG CAP PO SCH (09:00)
[2020-09-11] MEDS: HumaLOG 300 UNITS/3 ML VIAL SC PRN (12:32)
--- NOTE | 2020-09-11 13:33 | PDOC.HOSPP ---
- Subjective Encounter Date: 09/11/20 Encounter Time: 10:30 Subjective: Patient up in bed denies any complaints. - Objective Vital Signs & Weight: Vital Signs (12 hours) Temp Pulse Resp BP Pulse Ox 09/11/20 12:01 98.3 F 93 18 112/69 95 09/11/20 08:00 90 L 09/11/20 07:15 99.8 F H 100 20 103/65 90 L 09/11/20 03:59 98.2 F 99 18 119/69 92 L Weight Weight 227 lb I&O: 09/10/20 09/11/20 09/12/20 06:59 06:59 06:59 Intake Total 2000 Output Total 1450 Balance 550 Result Diagrams: 09/11/20 05:38 09/11/20 05:38 Additional Labs: Accuchecks 09/11/20 09/11/20 09/10/20 11:57 05:45 20:44 POC Glucose 181 H 159 H 233 H 09/10/20 16:14 POC Glucose 195 H Hospitalist ROS - Review of Systems Cardiovascular: denies: chest pain, palpitations, orthopnea, paroxysmal noc. dyspnea, edema, light headedness, other Gastrointestinal: denies: nausea, vomiting, abdominal pain, diarrhea, constipation, melena, hematochezia, other Genitourinary: denies: dysuria, frequency, incontinence, hematuria, retention, other - Medication Medications: Active Medications Generic Name Dose Route Start Last Admin Trade Name Freq PRN Reason Stop Dose Admin Acidophilus 1 tab 09/11/20 09:00 09/11/20 08:52 Lactinex Tablet PO 1 tab DAILY [place] Administration Alogliptin Benzoate 6.25 mg 09/11/20 09:00 09/11/20 08:53 Alogliptin 6.25 Mg Tab PO 6.25 mg DAILY [place] Administration Aspirin 81 mg 09/10/20 21:00 09/11/20 08:52 Aspirin 81 Mg Enteric Coated Tablet PO 81 mg BID [place] Administration Calcitriol 0.25 mcg 09/11/20 09:00 09/11/20 08:52 Calcitriol 0.25 Mcg Cap PO 0.25 mcg Q2DAYS [place] Administration Cyanocobalamin 2,500 mcg 09/11/20 09:00 09/11/20 08:52 Cyanocobalamin (Vitamin B-12) 1,000 Mcg Tab PO 2,500 mcg DAILY [place] Administration Ferrous Gluconate 324 mg 09/10/20 21:00 09/11/20 08:52 Ferrous Gluconate 324 Mg Tab PO 324 mg BID [place] Administration Glimepiride 2 mg 09/10/20 21:00 09/11/20 08:52 Glimepiride 2 Mg Tab PO 2 mg BID [place] Administration Fentanyl Citrate 500 mcg/ 100 mls @ 0 mls/hr 09/10/20 09:30 09/11/20 01:42 Bupivacaine HCl 10 ml/ Sodium EPIDURAL 100 mls Chloride INF [place] Administration As Directed Sodium Chloride 1,000 mls @ 100 mls/hr 09/10/20 09:49 09/11/20 04:48 Normal Saline 0.9% IV 1,000 mls .Q10H [place] Administration Insulin Glargine 75 units/ 0.75 mls @ 0 mls/hr 09/10/20 21:00 09/10/20 20:24 Miscellaneous Medication SC 0.75 mls HS [place] Administration As Directed Insulin Human Lispro 0 units 09/10/20 13:38 09/11/20 12:32 Humalog 300 Units/3 Ml Vial SC 2 unit .MODERATE SLIDING SC PRN Administration Moderate Correctional Scale Iron/Minerals/Multivitamins 1 tab 09/11/20 09:00 09/11/20 08:52 Multivitamin W/ Minerals 1 Tab PO 1 tab DAILY [place] Administration Loratadine 10 mg 09/10/20 21:00 09/10/20 20:22 Loratadine 10 Mg Tab PO 10 mg QPM [place] Administration Magnesium Oxide 400 mg 09/11/20 09:00 09/11/20 08:52 Magnesium Oxide 400 Mg Tab PO 400 mg DAILY [place] Administration Metoprolol Succinate 50 mg 09/10/20 21:00 09/10/20 20:22 Metoprolol Succinate Xl 50 Mg Tab PO 50 mg QPM [place] Administration Liraglutide [Victoza 0 each 09/10/20 21:00 09/10/20 20:25 3-Js] 0.6 Mg/0.1 SC 1 each Ml Pen QPM [place] Administration Ropinirole HCl 0.5 mg 09/10/20 21:00 09/10/20 20:21 Ropinirole Hcl 0.5 Mg Tab PO 0.5 mg QPM [place] Administration Rosuvastatin Calcium 10 mg 09/10/20 21:00 09/10/20 20:21 Rosuvastatin 10 Mg Tab PO 10 mg QPM [place] Administration Senna/Docusate Sodium 2 tab 09/10/20 21:00 09/11/20 08:52 Senokot S 8.6-50 Mg Tab PO 2 tab BID [place] Administration Tamoxifen Citrate 20 mg 09/10/20 21:00 09/10/20 20:22 Tamoxifen Citrate 10 Mg Tab PO 20 mg QPM [place] Administration Throat Lozenges 1 chandana 09/10/20 16:41 09/11/20 12:35 Cepastat Lozenges 1 Chandana PO 1 chandana Q2H PRN Administration SORE THROAT Tramadol HCl 100 mg 09/10/20 09:49 09/11/20 04:48 Tramadol Hcl 50 Mg Tab PO 100 mg Q6H PRN Administration Moderate Pain (4-6) - Exam Neck: negative: supple, symmetric, no JVD, no thyromegaly, no lymphadenopathy, no carotid bruit, JVD Heart: negative: RRR, no murmur, no gallops, no rubs, normal peripheral pulses, irregular, diminshed peripheral pulses, murmur present, II/IV, III/IV Respiratory: negative: CTAB, no wheezes, no rales, no ronchi, normal chest expansion, no tachypnea, normal percussion, rales, rhonchi, tachypneic, wheezes Gastrointestinal: negative: soft, non-tender, non-distended, normal bowel sounds, no palpable masses, no hepatomegaly, no splenomegaly, no bruit, no guarding, no rigidity, tender to palpation, distended, diminished bowl sounds, voluntary guarding Hosp A/P (1) Diabetes Code(s): E11.9 - TYPE 2 DIABETES MELLITUS WITHOUT COMPLICATIONS Status: Acute (2) Hypertension Code(s): I10 - ESSENTIAL (PRIMARY) HYPERTENSION Status: Acute (3) Breast cancer Status: Acute (4) Status post left hip replacement Code(s): Z96.642 - PRESENCE OF LEFT ARTIFICIAL HIP JOINT Status: Acute - Plan will continue current tx and will continue home meds. Blood sugars stable will continue current meds. pt on dvt ppx/ pain meds per ortho.
[2020-09-11] MEDS: rOPINIRole HCl 0.5 MG TAB PO SCH (20:42)
[2020-09-11] MEDS: Rosuvastatin 10 MG TAB PO SCH (20:42)
[2020-09-11] MEDS: Insulin Glargine 75 UNITS in Pre-Filled Syringe 1 EACH SC SCH (20:42)
[2020-09-11] MEDS: Loratadine 10 MG TAB PO SCH (20:43)
[2020-09-11] MEDS: LIRAGLUTIDE 0.6 MG/0.1 ML SC SCH (20:49)
[2020-09-12] MEDS: Sodium Chloride 0.9% 1,000 ML IV SCH ×2 (00:43→13:19)
[2020-09-12 05:13] LABS: #Basophils 0.1 thou/uL (0.0-0.2); #Eosinphils 0.1 thou/uL (0.0-0.7); #Lymphocytes 2.9 thou/uL (1.20-3.40); #Monocytes 1.6 thou/uL (0.11-0.59); #Neutrophils 8.4 thou/uL (1.40-6.50); %Basophils 0.5 % (0.0-1.0); %Eosinophils 0.8 % (0.0-10.0); %Lymphocytes 22.2 % (21.0-51.0); %Neutrophils 64.5 % (42.0-75.0); Hemoglobin 10.5 g/dL (12.0-16.0); Mean Corpuscular HGB CONC 33.4 g/dL (32.0-36.0); Mean Corpuscular Hemoglobin 33.6 pg (27.0-31.0); Mean Platelet Volume 9.4 fL (7.4-10.4); Platelet Count 165 thou/uL (130-400); RBC Distribution Width 11.5 % (11.5-14.5); Red Blood Cell (RBC) Count 3.12 mill/uL (4.20-5.40); White Blood Cell (WBC) Count 12.9 thou/uL (4.8-10.8)
[2020-09-12 05:57] LABS: Anion Gap 14 mmol/L (10-20); BUN (Urea Nitrogen) 15 mg/dL (9.8-20.1); Calc. Creatinine Clearance 73 mL/min (70-130); Calcium 8.9 mg/dL (7.8-10.44); Carbon Dioxide 23 mmol/L (23-31); Chloride 102 mmol/L (98-107); Glucose 199 mg/dL (83-110); Sodium 135 mmol/L (136-145)
[2020-09-12] MEDS: HumaLOG 300 UNITS/3 ML VIAL SC PRN ×3 (06:07→16:46)
[2020-09-12] MEDS: Aspirin 81 mg Enteric Coated Tablet PO SCH (09:31)
[2020-09-12] MEDS: Senokot S 8.6-50 MG TAB PO SCH (09:32)
[2020-09-12] MEDS: Alogliptin 6.25 MG TAB PO SCH (09:32)
[2020-09-12] MEDS: Lactinex Tablet PO SCH (09:32)
[2020-09-12] MEDS: Magnesium Oxide 400 MG TAB PO SCH (09:33)
[2020-09-12] MEDS: Ferrous Gluconate 324 MG TAB PO SCH (09:33)
[2020-09-12] MEDS: Glimepiride 2 MG TAB PO SCH (09:33)
[2020-09-12] MEDS: Multivitamin W/ Minerals 1 TAB PO SCH (09:34)
[2020-09-12] MEDS: Cyanocobalamin (Vitamin B-12) 1,000 MCG TAB PO SCH (09:35)
[2020-09-12] MEDS ORDERED: HYDROcodone/Acetaminophen 10/325 mg Tablet PO PRN ×2 (14:08)
[2020-09-12 16:49] VITALS: BP 98/61; TEMP 98
--- NOTE | 2020-09-13 15:33 | DIS ---
DATE OF ADMISSION: 09/10/2020 DATE OF DISCHARGE: 09/12/2020 DISCHARGE DISPOSITION: To home. ADMISSION DIAGNOSIS: End-stage bicompartmental osteoarthritis, left hip. DISCHARGE DIAGNOSIS: End-stage bicompartmental osteoarthritis, left hip. OPERATIVE PROCEDURE: Left total hip arthroplasty. CONSULTANTS: Charles Benton in Anesthesia. BRIEF CLINICAL HISTORY: The patient was admitted to [facility] and underwent the above elective procedure on the date of admission without intra-, katie-, or postoperative complication. The hospital course was unremarkable. At the time of discharge, the patient is afebrile, ambulatory without assistance utilizing a rolling walker in a full weightbearing fashion, tolerating a regular diet, and voiding without difficulty. The patient's incision is clean and closed without any erythema. DISCHARGE MEDICATIONS: Please see medication reconciliation form. We will be happy to see the patient on an as-needed basis between now and the patient's next scheduled appointment. CONDITION ON DISCHARGE: Stable. PROGNOSIS: Good. The assignment desk assistant surgeon helped throughout the procedure by positioning the patient, stabilizing the limb, holding retractors, aligning the prosthesis, and closure of procedure site. Job ID: [id number]
== END 2020-09-12 17:18 | disposition home or self-care (01) | DRG 470 ==
LOC: SURG A 09-10 05:34 → SURG B 09-10 10:50
PROVIDERS: ADMIT Orthopaedic Surgery; ATTEND Orthopaedic Surgery
PROC: 0SRB04A Replacement of Left Hip Joint with Ceramic on Polyethylene Synthetic Substitute, Uncemented, Open Approach (ICD-10-PCS; principal; 2020-09-10)
DX: M16.0 Bilateral primary osteoarthritis of hip (principal); Z20.828 Contact with and (suspected) exposure to other viral communicable diseases; G89.29 Other chronic pain; M54.9 Dorsalgia, unspecified; Z96.651 Presence of right artificial knee joint; M17.12 Unilateral primary osteoarthritis, left knee; I25.10 Atherosclerotic heart disease of native coronary artery without angina pectoris; I35.8 Other nonrheumatic aortic valve disorders; E78.5 Hyperlipidemia, unspecified; G47.33 Obstructive sleep apnea (adult) (pediatric); N18.9 Chronic kidney disease, unspecified; E11.65 Type 2 diabetes mellitus with hyperglycemia; I12.9 Hypertensive chronic kidney disease with stage 1 through stage 4 chronic kidney disease, or unspecified chronic kidney disease; Z85.3 Personal history of malignant neoplasm of breast; Z79.899 Other long term (current) drug therapy; Z79.4 Long term (current) use of insulin
CPT/HCPCS: 36415; 36416; 80048; 81001; 85025; 85610; 86850; 86900; 86901; 87081; 87086; 87635; J0690; J1815; J2001; J2250; J2405; J2704; J3010; J3370; J3490; S0020; U0003

== ENCOUNTER 2020-09-25 13:51 | Inpatient (IN) | payer MEDICARE ==
[~2020-09-25 13:51] MED LIST: Glycopyrrolate 0.2 MG/ML 5 ML SYRINGE ONE; Lidocaine 1% PF 5 ML VIAL ONE; PHENYLEPHRINE-NS 100 MCG/ML 10 ML SYRINGE ONE; PROPOFOL 200 MG/20 ML VIAL ONE; Rocuronium Bromide 10 MG/ML (10ML VIAL) ONE
[2020-09-25 14:33] LABS: #Basophils 0.1 thou/uL (0.0-0.2); #Eosinphils 0.3 thou/uL (0.0-0.7); #Lymphocytes 3.8 thou/uL (1.20-3.40); #Neutrophils 9.9 thou/uL (1.40-6.50); %Basophils 0.6 % (0.0-1.0); %Eosinophils 2.2 % (0.0-10.0); %Lymphocytes 25.1 % (21.0-51.0); %Monocytes 6.7 % (0.0-10.0); %Neutrophils 65.4 % (42.0-75.0); Hemoglobin 8.6 g/dL (12.0-16.0); Mean Corpuscular HGB CONC 30.7 g/dL (32.0-36.0); Mean Corpuscular Hemoglobin 32.9 pg (27.0-31.0); Mean Platelet Volume 6.6 fL (7.4-10.4); Platelet Count 486 thou/uL (130-400); RBC Distribution Width 12.9 % (11.5-14.5); Red Blood Cell (RBC) Count 2.62 mill/uL (4.20-5.40); White Blood Cell (WBC) Count 15.2 thou/uL (4.8-10.8)
[2020-09-25 14:37] LABS: PTT 27.5 sec (22.9-36.1); Prothrombin Time 13.7 sec (12.0-14.7)
[2020-09-25] MEDS ORDERED: Sodium Chloride 0.9% 100 ML ONE (14:43)
[2020-09-25] MEDS ORDERED: Tranexamic Acid 1,000 MG/10 ML VIAL ONE ×2 (14:43→18:51)
[2020-09-25 14:49] LABS: MDiff Complete? YES; Macrocytosis SLIGHT = 6-15 cells (100X) (0-5/hpf); Platelet Morphology Comment Appears Increased; Polychromasia SLIGHT = 2-3 cells (100X) (0-2/hpf); Small Platelets SLIGHT
[2020-09-25 14:54] LABS: Anion Gap 18 mmol/L (10-20); BUN (Urea Nitrogen) 22 mg/dL (9.8-20.1); Calc. Creatinine Clearance 0 mL/min (70-130); Calcium 9.1 mg/dL (7.8-10.44); Carbon Dioxide 20 mmol/L (23-31); Chloride 109 mmol/L (98-107); Glucose 68 mg/dL (83-110); Sodium 142 mmol/L (136-145)
[2020-09-25] MEDS ORDERED: Heparin 1,000 UNITS/ML VIAL ONE (15:13)
[2020-09-25] MEDS ORDERED: Dextrose 50% Abboject 50 ML SYRINGE ONE (15:53)
[2020-09-25] MEDS ORDERED: Fentanyl 100 MCG/2 ML VIAL ONE ×3 (16:09→20:13)
[2020-09-25] MEDS ORDERED: Vancomycin 1.5 GRAM/300 ML BAG ONE (16:13)
[2020-09-25 16:27] LABS: SARS-CoV-2 NAA Rapid Test Not Detected (NotDetected)
[2020-09-25 18:23] LABS: Bacteria/HPF None Seen HPF (None Seen); Bilirubin Negative (Negative); Blood, Urine Negative (Negative); Clarity Clear (Clear); Glucose, Urine (Dipstick) Normal (Negative); Ketone, Urine Negative (Negative); Leukocyte Negative Leu/uL (Negative); Nitrite Negative (Negative); Protein, Urine (Dipstick) 30 mg/dL (Neg-Trace); RBC/HPF None Seen HPF (0-3); Specific Gravity, Urine 1.022 (1.002-1.036); Squamous Epithelial None Seen HPF (0-3); Urobilinogen Normal mg/dL (Less than 2); WBC/HPF 0-3 HPF (0-3)
[2020-09-25] MEDS ORDERED: Promethazine HCl 25 MG/ML VIAL SLOW IVP PRN ×2 (18:41→19:16)
[2020-09-25] MEDS ORDERED: Promethazine HCl 25 MG/ML VIAL IM PRN (18:41)
[2020-09-25] MEDS ORDERED: Ondansetron HCl/PF 4 MG/2 ML Vial IVP PRN (18:41)
[2020-09-25] MEDS ORDERED: Tranexamic Acid 1,000 MG in Sodium Chloride 0.9% 100 ML IVPB SCH (19:00)
[2020-09-25] MEDS ORDERED: Ondansetron PF 4 MG/2 ML Vial IVP PRN (19:16)
[2020-09-25] MEDS ORDERED: Acetaminophen 325 MG TAB PO PRN (19:16)
[2020-09-25] MEDS ORDERED: diphenhydrAMINE 25 MG CAP PO PRN (19:16)
[2020-09-25] MEDS ORDERED: Zolpidem Tartrate 5 MG TAB PO PRN (19:16)
--- NOTE | 2020-09-25 19:16 | RAD ---
TWO VIEWS OF THE LEFT HIP: 09/25/20 COMPARISON: 09/10/20 HISTORY: Evaluate hip following surgery. FINDINGS: There are lateral cutaneous geovanna present. There is postoperative gas lateral to the left greater t rochanter. There is a left hip arthroplasty present. No acute fracture or dislocation. IMPRESSION: Postoperative changes as detailed above. POS: BRADY
[2020-09-25 19:50] LABS: Bacteria/HPF None Seen HPF (None Seen); Bilirubin Negative (Negative); Blood, Urine Negative (Negative); Clarity Clear (Clear); Glucose, Urine (Dipstick) Normal (Negative); Ketone, Urine Negative (Negative); Leukocyte Negative Leu/uL (Negative); Nitrite Negative (Negative); Protein, Urine (Dipstick) 30 mg/dL (Neg-Trace); RBC/HPF 0-3 HPF (0-3); Specific Gravity, Urine 1.022 (1.002-1.036); Squamous Epithelial 0-3 HPF (0-3); Urobilinogen Normal mg/dL (Less than 2); WBC/HPF 0-3 HPF (0-3)
--- NOTE | 2020-09-25 22:57 | OP ---
DATE OF PROCEDURE: 09/25/2020 TITLE I PARAPROFESSIONAL: Rony Phan PA-C The public aid eligibility assistant co-surgeon was present through the entire procedure and was responsible for providing exposure, tissue retraction, and any necessary limb or tissue manipulation required to obtain necessary reduction or hardware placement. The public aid eligibility assistant co-surgeon also provided bleeding control, tissue closure, and suturing in conjunction with the primary surgeon. ANESTHESIA: General. PREOPERATIVE DIAGNOSIS: Hematoma, left hip, possible infected left total hip replacement. POSTOPERATIVE DIAGNOSIS: Hematoma, left hip, possible infected left total hip replacement. PROCEDURES: Arthrotomy left hip with incision and drainage and exchange of acetabular liner and femoral head. OPERATIVE FINDINGS: On entering the skin, a large hematoma with some necrotic tissue was encountered. There was no gross pus. Cultures were obtained from superficial as well as inside the hip joint. There was essentially rupture of all the deep soft tissue repair including the IT band and abductors extending guide into the joint. The components appeared to be well fixed. I elected to try to salvage the hip replacement since it has only been two weeks since an index surgery by performing extensive incision and drainage and also beginning IV antibiotics. We will obtain infectious disease consultation and continue antibiotics pending the culture results. DESCRIPTION OF PROCEDURE: After satisfactory anesthesia was induced in supine position, the patient was placed in lateral decubitus position and this position held with hip positioning device. Sequential compression device was placed on the nonoperative leg throughout the procedure. It should be noted that prior to turning over to this position while placing the Prasad catheter, some old vaginal blood was seen, the exact etiology of this was unclear. There was no active bleeding, but when she has recovered from her hip, a gynecology consultation may be necessary. The patient's left hip was then prepped and draped in routine fashion. The previous incision was reopened with sharp dissection, the above findings were noted. Using sharp and blunt dissection, the wound was explored, the above findings noted and the wound was cleaned of all soft tissue debris and hematoma with pulsatile lavage and with sharp and blunt dissection. The joint was exposed. The hip dislocated anteriorly. The ceramic femoral head was knocked off the trunnion and the acetabulum exposed. The liner was removed with use of osteotome and also a screw after drilling through the acetabular plastic. The acetabular shell appeared to be well fixed. The wound was thoroughly irrigated with pulsatile lavage approximately 10 L. The permanent acetabular liner was then reinserted in the acetabular shell. The proximal femur was then exposed. The femoral stem appeared to be well-fixed. A new 32 mm standard neck length metal femoral head was then placed on the trunnion and the hip again reduced and found to be stable. The wound was again copiously irrigated. One large Hemovac was placed into the hip joint and brought through a separate stab wound. The abductors were repaired with interrupted #1 PDS. Another large Hemovac was placed deep to the IT band. The IT band was closed with interrupted #1 PDS. Subcutaneous tissues were closed with interrupted #1 and 2-0 PDS and the skin closed with a staple gun. A sterile bulky compressive dressing was applied. The patient was turned to supine position and a pillow placed between her legs. She was awakened, taken to recovery room in stable condition. COMPLICATIONS: There were no apparent intraoperative complications. ESTIMATED BLOOD LOSS: 200 mL. Job ID: [id number]
[2020-09-25] MEDS: Sodium Chloride 0.9% 1,000 ML IV SCH (23:36)
[2020-09-26] MEDS: CEFAZOLIN 2 GM in Premix Bag 1 BAG IVPB SCH ×3 (00:14→14:20)
[2020-09-26] MEDS: Aspirin 81 mg Enteric Coated Tablet PO SCH ×3 (00:14→20:55)
[2020-09-26] MEDS: Vancomycin 1.5 GRAM/300 ML BAG 1.5 GM in Premix Bag 1 BAG IVPB SCH ×3 (00:15→20:54)
[2020-09-26 00:25] VITALS: BMI 40.3
[2020-09-26] MEDS: HYDROcodone/Acetaminophen 10/325 mg Tablet PO PRN (01:16)
[2020-09-26] MEDS: traMADol HCl 50 MG TAB PO PRN (02:42)
[2020-09-26] MEDS: Sodium Chloride 0.9% 1,000 ML IV SCH ×2 (04:17→17:51)
--- NOTE | 2020-09-26 05:24 | HP ---
HISTORY OF PRESENT ILLNESS: The patient is a 74-year-old female, who underwent left total hip replacement on 09/10/2020. Her initial postoperative course was uneventful, but on , she noticed some bloody drainage from her incision, which she initially attributed to doing exercises with physical therapy. There was no specific injury. She continued to have some bloody drainage from the incision, but no pain or fever. She was seen in my office today. PAST HISTORY: Please see the old chart. The patient has a history of hypertension, diabetes, and sleep apnea. CURRENT MEDICATIONS: Include; 1. Multivitamins. 2. Calcium. 3. Zyrtec. 4. Tamoxifen for history of previous breast carcinoma. 5. Glimepiride. 6. Lantus insulin. 7. Metoprolol. 8. Crestor. 9. Hydrocodone. 10. Victoza. 11. Ropinirole. 12. Januvia. ALLERGIES: SHE IS ALLERGIC TO METFORMIN. PAST SURGICAL HISTORY: She has had previous knee replacement and cataract surgery and previous breast carcinoma in remission. FAMILY HISTORY: Otherwise, unremarkable. SOCIAL HISTORY: Otherwise, unremarkable. REVIEW OF SYSTEMS: Otherwise, unremarkable. PHYSICAL EXAMINATION: GENERAL: Reveals a healthy heavyset female. VITAL SIGNS: She is afebrile. HEENT: Unremarkable. NECK: Supple. CHEST: Clear. HEART: Regular rate and rhythm. ABDOMEN: Soft and nontender. PELVIC: Deferred. RECTAL: Deferred. BREASTS: Deferred. EXTREMITIES: Pertinent findings of the left hip, there is a healed lateral incision. There are some scabs apparently from tape irritation. The wound appears to be healing. There is some slight erythema. From the midportion of the incision, there is moderate serosanguineous drainage. No obvious pus. There is no pain with range of motion of the hip. Neurovascular exam is intact. IMAGING DATA: X-rays reveal satisfactory alignment of the components. IMPRESSION: Status post total hip replacement with possible hematoma, possible early infection. PLAN: Incision and drainage and secondary wound closure, possible liner and/or femoral head exchange. We will obtain deep cultures and begin antibiotics after obtaining deep cultures and hopefully can salvage the hip replacement. The nature of the surgery, length of recovery, potential complications such as persistent infection, thromboembolic phenomena, possible transfusion, neurovascular injury, need for additional treatment or possible removal of all of the implants if infection is present have been discussed in detail. Job ID: [id number]
[2020-09-26 08:08] LABS: Hemoglobin 7.9 g/dL (12.0-16.0); Mean Corpuscular Hemoglobin 34.5 pg (27.0-31.0); Mean Platelet Volume 7.7 fL (7.4-10.4); Platelet Count 319 thou/uL (130-400); RBC Distribution Width 12.6 % (11.5-14.5); Red Blood Cell (RBC) Count 2.29 mill/uL (4.20-5.40); White Blood Cell (WBC) Count 14.8 thou/uL (4.8-10.8)
[2020-09-26] MEDS ORDERED: Alogliptin 6.25 MG TAB PO SCH (09:00)
[2020-09-26] MEDS: Senokot S 8.6-50 MG TAB PO SCH ×2 (09:20→20:55)
[2020-09-26] MEDS: Calcitriol 0.25 MCG CAP PO SCH (09:20)
[2020-09-26] MEDS: Magnesium Oxide 400 MG TAB PO SCH (09:20)
[2020-09-26] MEDS: Lactinex Tablet PO SCH (09:21)
[2020-09-26] MEDS: Cyanocobalamin (Vitamin B-12) 1,000 MCG TAB PO SCH (09:21)
[2020-09-26] MEDS: Ferrous Gluconate 324 MG TAB PO SCH ×2 (09:22→20:55)
[2020-09-26] MEDS: Multivitamin W/ Minerals 1 TAB PO SCH (09:22)
[2020-09-26] MEDS ORDERED: Dextrose 5% in Water 1,000 ML IV PRN (09:33)
[2020-09-26] MEDS ORDERED: Dextrose 50% Abboject 50 ML SYRINGE SLOW IVP PRN (09:33)
[2020-09-26 10:23] LABS: Reticulocyte Count 6.2 % (0.5-1.5)
[2020-09-26 10:49] LABS: Iron 19 ug/dL (50-170); Iron Binding Capacity, Total 246 mcg/dL (265-497)
[2020-09-26 11:11] LABS: Ferritin 387.31 ng/mL (10-291)
--- NOTE | 2020-09-26 11:21 | CON ---
DATE OF CONSULTATION: PRIMARY CARE PHYSICIAN: Dr. Lezama. CHIEF COMPLAINT: Left hip drainage. HISTORY OF PRESENT ILLNESS: The patient is a 74-year-old female with a past medical history significant for type 2 diabetes (on insulin), hyperlipidemia, hypertension, restless legs, anemia, and breast cancer, who presents to the hospital for the above complaint. The patient underwent left total hip replacement on 09/10/2020. She had a subsequent follow up with her surgeon outpatient, which was unremarkable. Then on , the patient noticed some bloody drainage oozing from her incisional site on her left hip. She attributed it to "overdoing it," meaning exercising with physical therapy. She denies any fall or specific trauma postop. She denies any fever or chills. She denies any purulent drainage. For these reasons, she went to her surgeon's office for further evaluation. Decision was made to admit the patient for possible infection versus hematoma at the incisional site. We were consulted for medical management of this patient's chronic conditions. PAST MEDICAL HISTORY: 1. Hypertension. 2. Type 2 diabetes, insulin dependent. 3. Sleep apnea. 4. Hyperlipidemia. 5. Breast cancer. 6. Restless legs syndrome. 7. Macrocytic anemia. PAST SURGICAL HISTORY: 1. Cataract surgery. 2. Breast carcinoma in remission. 3. Total knee replacement. SOCIAL HISTORY: The patient lives with her family at home. No history of smoking, heavy alcohol intake, or illicit drug use. She is retired. She ambulates with a roller walker at this time. FAMILY HISTORY: Noncontributory to this case. ALLERGIES: METFORMIN, REPORTS GETTING DIARRHEA. HOME MEDICATIONS: 1. Lantus 75 units subcutaneously q.p.m. 2. Tamoxifen citrate 20 mg p.o. q.p.m. 3. Januvia 25 mg p.o. daily. 4. Crestor 10 mg p.o. q.p.m. 5. Ropinirole 0.5 mg p.o. q.p.m. 6. Metoprolol succinate 50 mg p.o. q.p.m. 7. Magnesium oxide 400 mg p.o. daily. 8. Victoza 1.8 mg subcu q.p.m. 9. Lactobacillus one capsule p.o. daily. 10. Glucosamine complex one tablet p.o. b.i.d. 11. Amaryl 2 mg p.o. b.i.d. 12. Vitamin B12 of 2500 mcg p.o. day. 13. Calcitriol 0.25 mcg p.o. q.2 days. 14. AREDS one tablet p.o. q.2 days. 15. Tramadol 50 mg p.o. t.i.d. p.r.n. pain. 16. Aspirin 81 mg p.o. b.i.d. 17. Tylenol Arthritis two tabs p.o. b.i.d. p.r.n. pain. REVIEW OF SYSTEMS: CONSTITUTIONAL: Denies malaise, fever, or chills. CARDIOVASCULAR: Denies chest pain, heart palpitations, swelling to lower extremities, or lightheadedness. PULMONARY: Denies cough, shortness of breath, or wheezing. ABDOMEN: Denies abdominal pain, nausea, vomiting, diarrhea, or constipation. Denies hematochezia or melena. URINARY: Denies dysuria or hematuria. NEUROLOGIC: Denies any focal motor weakness, changes in speech or headaches. PHYSICAL EXAMINATION: VITAL SIGNS: Temperature 97.9, blood pressure 104/52, heart rate 79, respirations 20, 97% on 2 L nasal cannula. CONSTITUTIONAL: The patient appears comfortable, nontoxic in appearance, resting in bed. Vital signs within normal limits. HEAD: Atraumatic and normocephalic. EYES: PERRLA. Extraocular muscles intact. Sclerae nonicteric. ENT: Oropharynx is clear. Uvula midline. Tacky mucous membranes. No oral lesions. NECK: Full range of motion. No cervical spinous tenderness. No cervical adenopathy. RESPIRATORY/CHEST: Respirations even and unlabored. Clear to auscultation. No rhonchi, wheezes, or rales on 2 L nasal cannula. CARDIOVASCULAR: There is a 3/6 cardiac murmur. No rubs or gallops. Regular rate and rhythm. ABDOMEN: Abdomen is soft, nontender, distended. Active bowel sounds. No guarding. No rigidity. No rebound. BACK: Full range of motion. No central spinous tenderness. No CVA tenderness. EXTREMITIES: Upper extremities; full range of motion, normal strength, sensation intact. Palpable radial pulses. Lower extremities; the left lower extremity has decreased range of motion. Mild discomfort, status post I and D and washout of her arthroplasty. The right leg is normal, which is normal strength, sensation intact. Palpable radial pulses. No swelling. Full range of motion. NEUROLOGIC: There are no focal motor deficits. Cranial nerves 2 through 12 intact. PSYCHIATRIC: A and O x4. Denies SI or HI. LABORATORY DATA AND DIAGNOSTICS: WBCs 14.8, hemoglobin 7.9, hematocrit 23.2, platelets 319. UA is unremarkable. COVID negative. Sodium is 142, potassium is 5.0, chloride is 109, carbon dioxide is 20, BUN is 22, creatinine is 0.96, GFR is 57, glucose 68, calcium 9.1. Coags; PT 13.7, INR 1.0, APTT 27.5. X-ray of the left hip showed status post left arthroplasty. There are lateral cutaneous geovanna present. There is postoperative gas lateral to left greater trochanter. No acute fracture or dislocation. IMPRESSION: 1. Diabetes type 2, insulin dependent. 2. Hypertension. 3. Hyperlipidemia. 4. Obstructive sleep apnea. 5. Restless legs. 6. Anemia. 7. Breast cancer. 8. Status post incision and drainage and washout of left total hip replacement arthroplasty. PLAN: A 74-year-old female underwent left total hip replacement on 09/10/2020, presents for bloody drainage to her surgical incision site. Infection versus hematoma. Status post incision and drainage by Dr. Luque. We were consulted for medical management. In terms of her hypertension, we will continue her home dose of beta kassandra. Agree to continue her Crestor for hyperlipidemia. In terms of her diabetes, she had episodes of hypoglycemia with blood sugar readings of 49 yesterday evening. We will hold her oral antihyperglycemics and home injectables, glimepiride, Januvia, and Victoza. We will decrease her home Lantus dose from 75 units down to 50 units. We will add moderate intermittent sliding scale and Accu-Cheks before meals and at bedtime. The patient does have a consistent carb diet. In terms of her restless legs, we will continue her ropinirole. In terms of her anemia, the patient presented with hemoglobin of 8.6, down to 7.9, status post I and D with washout. The patient has a history of macrocytic anemia. She has been started on an oral iron tablet and her cyanocobalamin has been restarted. We will recheck an H and H this afternoon. We will check iron studies, B12 and folate. No overt signs of bleeding. The patient has been typed and crossed. In terms of her breast cancer, we will continue her tamoxifen. In terms of her possible infection to her left hip, she is status post I and D. Cultures are pending. She is on vancomycin and Ancef. Dr. Godfrey has been consulted. Continue aspirin b.i.d. per Orthopedic Surgery. PT and OT per Orthopedic surgery. No gastrointestinal prophylaxis. Code status is full code. I discussed the case with Dr. Ibarra, attending physician. Job ID: [id number] [facility]
[2020-09-26 15:11] LABS: Hemoglobin 7.9 g/dL (12.0-16.0)
[2020-09-26 16:08] LABS: Vitamin B12 Greater than 2000 pg/mL (211-911)
[2020-09-26] MEDS ORDERED: Glimepiride 2 MG TAB PO SCH (16:30)
[2020-09-26] MEDS: HumaLOG 300 UNITS/3 ML VIAL SC PRN ×2 (17:13→20:56)
[2020-09-26] MEDS: rOPINIRole HCl 0.5 MG TAB PO SCH (20:55)
[2020-09-26] MEDS: Rosuvastatin 10 MG TAB PO SCH (20:55)
[2020-09-26] MEDS: INSULIN GLARGINE SC SCH (20:56)
[2020-09-26] MEDS: PRE FILLED SC SCH (20:56)
[2020-09-26] MEDS ORDERED: LIRAGLUTIDE 0.6 MG/0.1 ML SC SCH (21:00)
[2020-09-26] MEDS ORDERED: Insulin Glargine 75 UNITS in Pre-Filled Syringe 1 EACH SC SCH (21:00)
[2020-09-26] MEDS ORDERED: Insulin Glargine 50 UNITS in Pre-Filled Syringe 1 EACH SC SCH (21:00)
[2020-09-26] MEDS ORDERED: Sodium Chloride 0.9% 500 ML IV SCH (21:00)
[2020-09-26] MEDS: BOSWELLIA SERRA PO SCH ×2 (22:45→22:46)
[2020-09-26] MEDS: D3 PO SCH ×2 (22:45→22:46)
[2020-09-26] MEDS: GLUCOSAMINE PO SCH ×2 (22:45→22:46)
[2020-09-26 23:16] LABS: Hemoglobin 9.2 g/dL (12.0-16.0); Mean Corpuscular HGB CONC 32.6 g/dL (32.0-36.0); Mean Corpuscular Hemoglobin 32.3 pg (27.0-31.0); Mean Platelet Volume 7.6 fL (7.4-10.4); Platelet Count 315 thou/uL (130-400); RBC Distribution Width 13.7 % (11.5-14.5); Red Blood Cell (RBC) Count 2.84 mill/uL (4.20-5.40); White Blood Cell (WBC) Count 18.5 thou/uL (4.8-10.8)
[2020-09-27] MEDS: CEFAZOLIN 2 GM in Premix Bag 1 BAG IVPB SCH ×3 (00:07→14:09)
[2020-09-27] MEDS: Sodium Chloride 0.9% 1,000 ML IV SCH ×3 (04:58→22:01)
[2020-09-27] MEDS: HumaLOG 300 UNITS/3 ML VIAL SC PRN ×4 (06:06→20:38)
[2020-09-27 06:34] LABS: Mean Corpuscular HGB CONC 32.6 g/dL (32.0-36.0); Mean Corpuscular Hemoglobin 32.7 pg (27.0-31.0); Mean Platelet Volume 9.1 fL (7.4-10.4); Platelet Count 258 thou/uL (130-400); RBC Distribution Width 13.8 % (11.5-14.5); Red Blood Cell (RBC) Count 2.77 mill/uL (4.20-5.40); White Blood Cell (WBC) Count 18.7 thou/uL (4.8-10.8)
[2020-09-27] MEDS: Cyanocobalamin (Vitamin B-12) 1,000 MCG TAB PO SCH (08:44)
[2020-09-27] MEDS: Lactinex Tablet PO SCH (08:44)
[2020-09-27] MEDS: Aspirin 81 mg Enteric Coated Tablet PO SCH ×2 (08:45→20:41)
[2020-09-27] MEDS: Magnesium Oxide 400 MG TAB PO SCH (08:45)
[2020-09-27] MEDS: Ferrous Gluconate 324 MG TAB PO SCH ×2 (08:45→20:40)
[2020-09-27] MEDS: Senokot S 8.6-50 MG TAB PO SCH ×2 (08:45→20:41)
[2020-09-27] MEDS: Multivitamin W/ Minerals 1 TAB PO SCH (08:46)
[2020-09-27] MEDS: HYDROcodone/Acetaminophen 10/325 mg Tablet PO PRN ×2 (09:11→14:24)
[2020-09-27 09:56] LABS: Vancomycin, Trough 21.6 ug/mL
--- NOTE | 2020-09-27 10:54 | PDOC.HOSPP ---
- Subjective Encounter Date: 09/27/20 Encounter Time: 10:31 Subjective: Patient states she is feeling well and is without any complaints. Reports not requiring any pain meds through the night. She slept well and had no issues. Currently she is getting ready to get out of bed with PT. - Objective Vital Signs & Weight: Vital Signs (12 hours) Temp Pulse Resp BP Pulse Ox 09/27/20 08:45 97 09/27/20 07:20 99.4 F 89 18 130/83 97 09/27/20 05:26 120/69 09/27/20 03:35 97/65 09/27/20 03:18 98.1 F 94 20 92/52 L 97 09/27/20 00:25 94 L 09/26/20 23:18 97.6 F 84 20 105/56 L 93 L Weight Admit Weight 220 lb 8 oz Weight 220 lb 8 oz I&O: 09/26/20 09/27/20 09/28/20 06:59 06:59 06:59 Intake Total 1000 1900 Output Total 395 1900 Balance 605 0 Result Diagrams: 09/27/20 05:37 09/25/20 14:22 Additional Labs: Accuchecks 09/27/20 09/26/20 09/26/20 05:46 19:47 16:25 POC Glucose 220 H 328 H 323 H 09/26/20 14:27 POC Glucose 261 H Hospitalist ROS - Review of Systems Constitutional: denies: fever, chills, sweats, weakness, malaise, other Eyes: denies: pain, vision change, conjunctivae inflammation, eyelid inflammation, redness, other ENT: denies: ear pain, ear discharge, nose pain, nose discharge, nose congestion, mouth pain, mouth swelling, throat pain, throat swelling, other Respiratory: denies: cough, dry, shortness of breath, hemoptysis, SOB with excertion, pleuritic pain, sputum, wheezing, other Cardiovascular: denies: chest pain, palpitations, orthopnea, paroxysmal noc. dyspnea, edema, light headedness, other Gastrointestinal: denies: nausea, vomiting, abdominal pain, diarrhea, constipation, melena, hematochezia, other Genitourinary: denies: dysuria, frequency, incontinence, hematuria, retention, other - Medication Medications: Active Medications Generic Name Dose Route Start Last Admin Trade Name Freq PRN Reason Stop Dose Admin Hydrocodone Bitart/Acetaminophen 1 tab 09/25/20 19:16 09/27/20 09:11 Hydrocodone/Acetaminophen 10/325 Mg Tablet PO 1 tab Q4H PRN Administration Moderate Pain (4-6) Acidophilus 1 tab 09/26/20 09:00 09/27/20 08:44 Lactinex Tablet PO 1 tab DAILY [place] Administration Aspirin 81 mg 09/25/20 21:00 09/27/20 08:45 Aspirin 81 Mg Enteric Coated Tablet PO 81 mg BID [place] Administration Calcitriol 0.25 mcg 09/26/20 08:00 09/26/20 09:20 Calcitriol 0.25 Mcg Cap PO 0.25 mcg Q2DAYS [place] Administration Cyanocobalamin 2,500 mcg 09/26/20 09:00 09/27/20 08:44 Cyanocobalamin (Vitamin B-12) 1,000 Mcg Tab PO 2,500 mcg DAILY [place] Administration Ferrous Gluconate 324 mg 09/26/20 09:00 09/27/20 08:45 Ferrous Gluconate 324 Mg Tab PO 324 mg BID [place] Administration Cefazolin Sodium/Dextrose 2 gm 50 mls @ 100 mls/hr 09/25/20 22:00 09/27/20 05:00 / Device IVPB 50 mls Q8HR [place] Administration Sodium Chloride 1,000 mls @ 100 mls/hr 09/25/20 19:16 09/27/20 04:58 Normal Saline 0.9% IV 1,000 mls .Q10H [place]LIN[place] Administration Vancomycin HCl 1.5 gm/ Device 300 mls @ 200 mls/hr 09/25/20 21:00 09/26/20 20:54 IVPB 300 mls Q12HR [place] Administration Insulin Glargine 75 units/ 0.75 mls @ 0 mls/hr 09/26/20 21:00 09/26/20 20:56 Miscellaneous Medication SC 0.75 mls HS [place] Administration As Directed Insulin Human Lispro 0 units 09/26/20 09:33 09/27/20 06:06 Humalog 300 Units/3 Ml Vial SC 4 unit .MODERATE SLIDING SC PRN Administration Moderate Correctional Scale Insulin Human Lispro 0 units 09/26/20 09:33 09/26/20 20:56 Humalog 300 Units/3 Ml Vial SC 4 unit .BEDTIME SLIDING SC PRN Administration Bedtime Correctional Scale Iron/Minerals/Multivitamins 1 tab 09/26/20 09:00 09/27/20 08:46 Multivitamin W/ Minerals 1 Tab PO 1 tab DAILY [place] Administration Magnesium Oxide 400 mg 09/26/20 09:00 09/27/20 08:45 Magnesium Oxide 400 Mg Tab PO 400 mg DAILY [place] Administration Metoprolol Succinate 50 mg 09/26/20 21:00 09/26/20 20:55 Metoprolol Succinate Xl 50 Mg Tab PO 50 mg QPM [place] Administration Ropinirole HCl 0.5 mg 09/26/20 21:00 09/26/20 20:55 Ropinirole Hcl 0.5 Mg Tab PO 0.5 mg QPM [place] Administration Rosuvastatin Calcium 10 mg 09/26/20 21:00 09/26/20 20:55 Rosuvastatin 10 Mg Tab PO 10 mg QPM [place] Administration Senna/Docusate Sodium 2 tab 09/26/20 09:00 09/27/20 08:45 Senokot S 8.6-50 Mg Tab PO 2 tab BID [place] Administration Tamoxifen Citrate 20 mg 09/26/20 21:00 09/26/20 20:54 Tamoxifen Citrate 10 Mg Tab PO 20 mg QPM [place] Administration Tramadol HCl 100 mg 09/25/20 19:16 09/26/20 02:42 Tramadol Hcl 50 Mg Tab PO 100 mg Q6H PRN Administration Moderate Pain (4-6) - Exam General Appearance: NAD, awake alert Eye: PERRL, anicteric sclera ENT: normocephalic atraumatic, no oropharyngeal lesions Neck: supple, no lymphadenopathy Heart: RRR, normal peripheral pulses Respiratory: CTAB, no wheezes, no rales, no ronchi, normal chest expansion Gastrointestinal: soft, non-tender, non-distended, normal bowel sounds Extremities: no edema Skin: normal turgor, no lesions, no rashes Neurological: cranial nerve grossly intact, normal sensation to touch Musculoskeletal: normal tone, normal strength Psychiatric: normal affect, normal behavior, A&O x 3 Hosp A/P (1) Status post incision and drainage Code(s): Z98.890 - OTHER SPECIFIED POSTPROCEDURAL STATES Status: Acute (2) Left hip postoperative wound infection Code(s): T81.49XA - INFECTION FOLLOWING A PROCEDURE, OTHER SURGICAL SITE, INIT Status: Acute (3) Hyperlipidemia Code(s): E78.5 - HYPERLIPIDEMIA, UNSPECIFIED Status: Chronic (4) Restless leg syndrome Status: Chronic (5) Diabetes Code(s): E11.9 - TYPE 2 DIABETES MELLITUS WITHOUT COMPLICATIONS Status: Chronic (6) Hypertension Code(s): I10 - ESSENTIAL (PRIMARY) HYPERTENSION Status: Chronic (7) CONSTANTINO (obstructive sleep apnea) Code(s): G47.33 - OBSTRUCTIVE SLEEP APNEA (ADULT) (PEDIATRIC) Status: Chronic (8) Breast cancer Status: Chronic - Plan S/p I&D and washout of left total hip replacement arthroplasty: Cultures positive for klebsiella pneumoniae and presumptive e. coli On antibiotics, remains afebrile Awaiting ID review/recommendations Obtain BMP and assess renal function Type 2 DM: Monitor glucose Insulin sliding scale Home meds on hold due to hypoglycemic episodes Hypertension: Home medications restarted Continue to monitor BP Breast cancer: On tamoxifen Consult Oncology for recommendations given active infection Hyperlipidemia: Continue statin Restless leg syndrome: Continue ropinirole CONSTANTINO: stable DVT Prophylaxis: Mechanical SCDs
[2020-09-27] MEDS: Vancomycin 1.5 GRAM/300 ML BAG 1.5 GM in Premix Bag 1 BAG IVPB SCH (11:34)
[2020-09-27 13:20] LABS: ALT (SGPT) 13 U/L (8-55); AST (SGOT) 38 U/L (5-34); Albumin 2.8 g/dL (3.4-4.8); Alkaline Phosphatase 63 U/L (40-110); Anion Gap 16 mmol/L (10-20); BUN (Urea Nitrogen) 18 mg/dL (9.8-20.1); Bilirubin, Total 0.5 mg/dL (0.2-1.2); Calc. Creatinine Clearance 65 mL/min (70-130); Calcium 8.1 mg/dL (7.8-10.44); Carbon Dioxide 20 mmol/L (23-31); Chloride 107 mmol/L (98-107); Globulin 3.2 g/dL (2.4-3.5); Glucose 326 mg/dL (83-110); Sodium 139 mmol/L (136-145)
[2020-09-27] MEDS: MEROPENEM 1 GM/50 ML 1 GM in Premix Bag 1 BAG IVPB SCH (18:02)
[2020-09-27 18:33] LABS: Bilirubin Negative (Negative); Blood, Urine Trace (Negative); Clarity Clear (Clear); Glucose, Urine (Dipstick) Greater than 1000 mg/dL (Negative); Ketone, Urine Trace mg/dL (Negative); Leukocyte Negative Leu/uL (Negative); Nitrite Negative (Negative); Protein, Urine (Dipstick) 30 mg/dL (Neg-Trace); RBC/HPF 0-3 HPF (0-3); Specific Gravity, Urine 1.023 (1.002-1.036); Squamous Epithelial 0-3 HPF (0-3); Urobilinogen Normal mg/dL (Less than 2); WBC/HPF 0-3 HPF (0-3); pH, Urine 5.5 (5.0-9.0)
[2020-09-27 18:34] LABS: Bacteria/HPF 1+ HPF (None Seen)
--- NOTE | 2020-09-27 18:34 | CON ---
DATE OF CONSULTATION: 09/27/2020 REASON FOR CONSULTATION: Left hip arthroplasty site hematoma with infection. HISTORY OF PRESENT ILLNESS: A 74-year-old who underwent left hip replacement for management of osteoarthritis in mid 08/2020 and developed serosanguineous drainage from the incision site without any history of fall or other type of injury. This turned into bloody drainage and she was then referred to see Dr. Luque, and he admitted the patient and took her to the OR on 09/25. Upon entering the skin, there was a large hematoma with some necrotic tissue encountered, but no purulence. Cultures were obtained from the superficial as well as the deep compartments. All the deep soft tissue repair had ruptured. Components were affixed though. Apparently, there was some vaginal blood noted while placing the Prasad catheter. Currently, Ms. Leary is postoperative. She is a little bit drowsy using her nasal CPAP. No headaches. No sore throat, odynophagia, or dysphagia. No dyspnea or chest pain. She complains of mild pain in the left lower quadrant. She has a chronic rash in the left anterior chest area, for which she has seen multiple physicians without a clear-cut diagnosis. No neurological symptoms. MEDICAL HISTORY: 1. Osteoarthritis. 2. Hypertension. 3. Type 2 diabetes. 4. Sleep apnea. 5. Obesity. 6. Breast cancer, in remission. 7. Restless legs syndrome. 8. She has had a right TKR. SOCIAL HISTORY: Lives with family. Never smoker. MEDICATION LIST: 1. Aspirin. 2. Cefazolin. 3. Vancomycin. PHYSICAL EXAMINATION: VITAL SIGNS: The patient has been afebrile until yesterday at 6:00 pm when she was 100.1 and now 98.7, BP 112/68, pulse 88, respirations 18, and O2 saturation 96 on room air. SKIN: With a left hip incision site. She does not have a Prasad catheter anymore. No lymphadenopathy. HEENT: Ocular movements conjugate. Oral cavity not remarkable. NECK: No jugular vein distention. LUNGS: Symmetric. Clear breath sounds. HEART: S1 and S2 with a soft aortic murmur. Regular rate. ABDOMEN: Not distended. No tenderness. No ascites. No organomegaly. Question of bladder distention. EXTREMITIES: No edema. Pulses 1+ in dorsalis pedis. Moves extremities with limitations imposed by the left hip inflammatory process. NEUROLOGIC: Awake and oriented, follows commands, speaks a little bit haltingly. LABORATORY DATA: White cell count started at 15 and now is up to 18.7, hemoglobin 9.0, and platelets 258. Sodium 139, creatinine 1.17, and AST 38. Urinalysis normal. GFR 45. Albumin 2.8. SARS-CoV-2 PCR not detected. She had a chest x-ray on 08/15, but not a recent one, with no acute changes noted. Microbiology with Klebsiella pneumoniae, broadly susceptible, and there is an E coli with pending susceptibilities. There are 1 samples, 1 from the joint and 1 from the more superficial compartment. ASSESSMENT: 1. Type 2 diabetes. 2. Hypertension. 3. Sleep apnea. 4. Osteoarthritis with recent left hip replacement and postoperative hematoma, which became infected. The same organisms have been retrieved from the superficial as well as deep samples. We will switch her to Merrem until we have the final susceptibilities of the E coli since it could be an ESBL pathogen. Discontinue vancomycin. Eventually hopefully transition to oral quinolone for discharge planning, which would avoid the need for placement of a PICC line. If the E coli has resistance to quinolones, then obviously we will have to place a PICC line and treat it with the antimicrobial that would cover both pathogens. The duration of therapy was 6 weeks followed by transition to an oral regimen for another 3 months and then suppressive therapy. Job ID: [id number]
[2020-09-27 18:35] LABS: Urine Culture Reflex Yes Yes
--- NOTE | 2020-09-27 19:36 | CON ---
DATE OF CONSULTATION: REASON FOR CONSULTATION: Breast cancer. HISTORY OF PRESENT ILLNESS: Ms. 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 She is ER/SD positive and HER-2 negative. She has been on tamoxifen for just about 5 years. She had a hip replacement on 09/10, and was readmitted on the for drainage from her incision. She had I and D of this area and is on antibiotics. We were asked to see her regarding her tamoxifen. PAST MEDICAL HISTORY: 1. Stage IIA right breast cancer. 2. Diabetes mellitus, 2. 3. Hypertension. 4. Sleep apnea. 5. Hyperlipidemia. 6. Restless legs syndrome. 7. Morbid obesity. PAST SURGICAL HISTORY: 1. Hip replacement. 2. Knee replacement. 3. Cataract surgery. ALLERGIES: NO KNOWN DRUG ALLERGIES. HOME MEDICATIONS: 1. Amaryl. 2. Calcitriol. 3. Crestor. 4. Glucosamine. 5. Januvia. 6. Insulin. 7. Magnesium oxide. 8. Metoprolol. 9. Probiotic. 10. Ropirinole. 11. Amoxicillin. 12. Tramadol. 13. Tylenol. 14. Vitoza. 15. B12. 16. Ecotrin. FAMILY HISTORY: Mother has a history of breast cancer. SOCIAL HISTORY: , has 3 children. Lives with her spouse. No alcohol, tobacco, or illicit drug use. REVIEW OF SYSTEMS: Unremarkable. PHYSICAL EXAMINATION: VITAL SIGNS: Temperature 98.7, pulse 88, respiratory rate 18, BP is 112/68, and she is 96% on room air. GENERAL: A well-developed, well-nourished female, in no acute distress. HEENT: Normocephalic and atraumatic. Pupils equal and reactive to light. NECK: Supple. CV: Regular. LUNGS: Clear. ABDOMEN: Soft. NEUROLOGIC: Intact. PERTINENT LABORATORY DATA AND X-RAYS: WBCs are 18.7, hemoglobin 9, hematocrit 27.7, platelet count 258,000, 65% neutrophils, and 25% lymphocytes. Sodium 139, potassium 4, chloride 107, CO2 is 20, BUN is 18, creatinine 1.17, bilirubin 0.5, AST is 38, ALT is 13, alkaline phosphatase is 63, serum total protein 6, albumin 2.8, and globulin 3.2. B12 was greater than 2000. COVID PCR negative. ASSESSMENT: 1. Stage IIA breast cancer, on tamoxifen. 2. Recent hip replacement with incisional I and D. DISCUSSION: The patient has been on tamoxifen for almost 5 years for her breast cancer. She is due to see Dr. Pruitt next week to discuss either stopping it or continuing for an additional 5 years. She is morbidly obese, had a recent surgery and now has decreased mobility. This increases her to high risk for blood clots. Would recommend holding the tamoxifen until she follows up with Dr. Pruitt in the outpatient setting. I did discuss this with the patient and Dr. Booth. Thank you for the consult. Job ID: [id number] [id number]
[2020-09-27] MEDS: PRE FILLED SC SCH (20:39)
[2020-09-27] MEDS: INSULIN GLARGINE SC SCH (20:39)
[2020-09-27] MEDS: rOPINIRole HCl 0.5 MG TAB PO SCH (20:40)
[2020-09-27] MEDS: Rosuvastatin 10 MG TAB PO SCH (20:41)
[2020-09-27] MEDS ORDERED: Vancomycin HCl 1.25 GM in Sodium Chloride 0.9% 250 ML 250 ML IVPB SCH (23:00)
[2020-09-28] MEDS: MEROPENEM 1 GM/50 ML 1 GM in Premix Bag 1 BAG IVPB SCH ×3 (01:27→17:24)
[2020-09-28] MEDS: Sodium Chloride 0.9% 1,000 ML IV SCH ×2 (05:06→11:41)
[2020-09-28] MEDS: HumaLOG 300 UNITS/3 ML VIAL SC PRN ×2 (05:51→17:24)
[2020-09-28 05:54] LABS: #Eosinphils 0.1 thou/uL (0.0-0.7); #Lymphocytes 2.4 thou/uL (1.20-3.40); #Monocytes 1.2 thou/uL (0.11-0.59); #Neutrophils 11.1 thou/uL (1.40-6.50); %Basophils 0.1 % (0.0-1.0); %Eosinophils 0.6 % (0.0-10.0); %Lymphocytes 16.4 % (21.0-51.0); %Monocytes 8.2 % (0.0-10.0); %Neutrophils 74.7 % (42.0-75.0); Hemoglobin 8.5 g/dL (12.0-16.0); Hemoglobin 8.7 g/dL (12.0-16.0); Mean Corpuscular HGB CONC 32.6 g/dL (32.0-36.0); Mean Corpuscular HGB CONC 32.7 g/dL (32.0-36.0); Mean Corpuscular Hemoglobin 32.6 pg (27.0-31.0); Mean Corpuscular Hemoglobin 32.8 pg (27.0-31.0); Mean Platelet Volume 7.7 fL (7.4-10.4); Mean Platelet Volume 7.8 fL (7.4-10.4); Platelet Count 286 thou/uL (130-400); Platelet Count 289 thou/uL (130-400); RBC Distribution Width 13.4 % (11.5-14.5); Red Blood Cell (RBC) Count 2.58 mill/uL (4.20-5.40); Red Blood Cell (RBC) Count 2.66 mill/uL (4.20-5.40); White Blood Cell (WBC) Count 14.8 thou/uL (4.8-10.8)
[2020-09-28 06:14] LABS: Lactic Acid 1.5 mmol/L (0.5-2.2)
[2020-09-28 06:18] LABS: ALT (SGPT) 19 U/L (8-55); AST (SGOT) 61 U/L (5-34); Albumin 2.7 g/dL (3.4-4.8); Alkaline Phosphatase 59 U/L (40-110); Anion Gap 14 mmol/L (10-20); BUN (Urea Nitrogen) 17 mg/dL (9.8-20.1); Bilirubin, Total 0.6 mg/dL (0.2-1.2); Calc. Creatinine Clearance 80 mL/min (70-130); Calcium 8.2 mg/dL (7.8-10.44); Carbon Dioxide 20 mmol/L (23-31); Chloride 108 mmol/L (98-107); Globulin 3.2 g/dL (2.4-3.5); Glucose 197 mg/dL (83-110); Magnesium 1.8 mg/dL (1.6-2.6); Potassium 3.9 mmol/L (3.5-5.1); Protein, Total 5.9 g/dL (6.0-8.3); Sodium 138 mmol/L (136-145)
[2020-09-28] MEDS: Lactinex Tablet PO SCH (08:53)
[2020-09-28] MEDS: Aspirin 81 mg Enteric Coated Tablet PO SCH ×2 (08:54→21:33)
[2020-09-28] MEDS: Calcitriol 0.25 MCG CAP PO SCH (08:54)
[2020-09-28] MEDS: Senokot S 8.6-50 MG TAB PO SCH ×2 (08:54→21:33)
[2020-09-28] MEDS: Magnesium Oxide 400 MG TAB PO SCH (08:54)
[2020-09-28] MEDS: Ferrous Gluconate 324 MG TAB PO SCH ×2 (08:56→21:33)
[2020-09-28] MEDS: Cyanocobalamin (Vitamin B-12) 1,000 MCG TAB PO SCH (08:56)
[2020-09-28] MEDS: Multivitamin W/ Minerals 1 TAB PO SCH (08:57)
[2020-09-28] MEDS ORDERED: Bisacodyl 10 MG SUPP PR PRN (11:13)
[2020-09-28] MEDS ORDERED: Fleet Enema 133 ML BOT PR SCH (11:15)
--- NOTE | 2020-09-28 16:56 | PDOC.HOSPP ---
- Subjective Encounter Date: 09/28/20 Encounter Time: 16:56 Subjective: Patient states she has had a low appetite today. Denies any nausea or vomiting. No abdominal discomfort since henriquez catheter was re-inserted. Remains afebrile. No other complaints. - Objective Vital Signs & Weight: Vital Signs (12 hours) Temp Pulse Resp BP Pulse Ox 09/28/20 16:00 99.7 F H 90 16 134/84 97 09/28/20 11:39 97.7 F 96 16 128/71 96 09/28/20 11:00 98 09/28/20 08:30 98.6 F 84 16 152/80 H 98 Weight Admit Weight 220 lb 8 oz Weight 220 lb 8 oz I&O: 09/27/20 09/28/20 09/29/20 06:59 06:59 06:59 Intake Total 1899 1999 Output Total 1999 2140 Balance -100 -141 Result Diagrams: 09/29/20 05:35 09/28/20 05:36 Additional Labs: Accuchecks 09/28/20 09/28/20 09/28/20 16:07 11:32 05:33 POC Glucose 154 H 138 H 169 H 09/27/20 20:37 POC Glucose 274 H Hospitalist ROS - Review of Systems Constitutional: denies: fever, chills, sweats, weakness, malaise, other Eyes: denies: pain, vision change, conjunctivae inflammation, eyelid inflammation, redness, other ENT: denies: ear pain, ear discharge, nose pain, nose discharge, nose congestion, mouth pain, mouth swelling, throat pain, throat swelling, other Respiratory: denies: cough, dry, shortness of breath, hemoptysis, SOB with excertion, pleuritic pain, sputum, wheezing, other Cardiovascular: denies: chest pain, palpitations, orthopnea, paroxysmal noc. dyspnea, edema, light headedness, other Gastrointestinal: denies: nausea, vomiting, abdominal pain, diarrhea, constipation, melena, hematochezia, other Genitourinary: reports: retention (henriquez re-inserted) Musculoskeletal: denies: neck pain, shoulder pain, arm pain, back pain, hand pain, leg pain, foot pain, other - Medication Medications: Active Medications Generic Name Dose Route Start Last Admin Trade Name Freq PRN Reason Stop Dose Admin Hydrocodone Bitart/Acetaminophen 1 tab 09/25/20 19:16 09/27/20 14:24 Hydrocodone/Acetaminophen 10/325 Mg Tablet PO 1 tab Q4H PRN Administration Moderate Pain (4-6) Acidophilus 1 tab 09/26/20 09:00 09/28/20 08:53 Lactinex Tablet PO 1 tab DAILY [place] Administration Aspirin 81 mg 09/25/20 21:00 09/28/20 08:54 Aspirin 81 Mg Enteric Coated Tablet PO 81 mg BID [place] Administration Calcitriol 0.25 mcg 09/26/20 08:00 09/28/20 08:54 Calcitriol 0.25 Mcg Cap PO 0.25 mcg Q2DAYS [place] Administration Cyanocobalamin 2,500 mcg 09/26/20 09:00 09/28/20 08:56 Cyanocobalamin (Vitamin B-12) 1,000 Mcg Tab PO 2,500 mcg DAILY [place] Administration Ferrous Gluconate 324 mg 09/26/20 09:00 09/28/20 08:56 Ferrous Gluconate 324 Mg Tab PO 324 mg BID [place] Administration Sodium Chloride 1,000 mls @ 100 mls/hr 09/25/20 19:16 09/28/20 11:41 Normal Saline 0.9% IV 1,000 mls .Q10H [place] Administration Insulin Glargine 75 units/ 0.75 mls @ 0 mls/hr 09/26/20 21:00 09/27/20 20:39 Miscellaneous Medication SC 0.75 mls HS [place] Administration As Directed Meropenem 1 gm/ Device 50 mls @ 200 mls/hr 09/27/20 18:00 09/28/20 11:44 IVPB 50 mls 0200,1000,1800 [place] Administration Insulin Human Lispro 0 units 09/26/20 09:33 09/28/20 05:51 Humalog 300 Units/3 Ml Vial SC 2 unit .MODERATE SLIDING SC PRN Administration Moderate Correctional Scale Insulin Human Lispro 0 units 09/26/20 09:33 09/27/20 20:38 Humalog 300 Units/3 Ml Vial SC 3 unit .BEDTIME SLIDING SC PRN Administration Bedtime Correctional Scale Iron/Minerals/Multivitamins 1 tab 09/26/20 09:00 09/28/20 08:57 Multivitamin W/ Minerals 1 Tab PO 1 tab DAILY [place] Administration Magnesium Oxide 400 mg 09/26/20 09:00 09/28/20 08:54 Magnesium Oxide 400 Mg Tab PO 400 mg DAILY [place] Administration Metoprolol Succinate 50 mg 09/26/20 21:00 09/27/20 20:43 Metoprolol Succinate Xl 50 Mg Tab PO 50 mg QPM [place] Administration Ropinirole HCl 0.5 mg 09/26/20 21:00 09/27/20 20:40 Ropinirole Hcl 0.5 Mg Tab PO 0.5 mg QPM [place] Administration Rosuvastatin Calcium 10 mg 09/26/20 21:00 09/27/20 20:41 Rosuvastatin 10 Mg Tab PO 10 mg QPM [place] Administration Senna/Docusate Sodium 2 tab 09/26/20 09:00 09/28/20 08:54 Senokot S 8.6-50 Mg Tab PO 2 tab BID [place] Administration Tamoxifen Citrate 20 mg 09/26/20 21:00 09/27/20 20:41 Tamoxifen Citrate 10 Mg Tab PO 20 mg QPM [place] Administration Tramadol HCl 100 mg 09/25/20 19:16 09/26/20 02:42 Tramadol Hcl 50 Mg Tab PO 100 mg Q6H PRN Administration Moderate Pain (4-6) - Exam General Appearance: NAD, awake alert Eye: PERRL, anicteric sclera ENT: normocephalic atraumatic, no oropharyngeal lesions Neck: supple, no lymphadenopathy Heart: RRR, normal peripheral pulses Respiratory: CTAB, no wheezes, no rales, no ronchi, normal chest expansion Gastrointestinal: soft, non-tender, non-distended, normal bowel sounds Extremities: no edema Skin: normal turgor, no lesions, no rashes Neurological: cranial nerve grossly intact, normal sensation to touch Musculoskeletal: normal tone, normal strength, no muscle wasting Psychiatric: normal affect, normal behavior, A&O x 3 Hosp A/P (1) Status post incision and drainage Code(s): Z98.890 - OTHER SPECIFIED POSTPROCEDURAL STATES Status: Acute (2) Left hip postoperative wound infection Code(s): T81.49XA - INFECTION FOLLOWING A PROCEDURE, OTHER SURGICAL SITE, INIT Status: Acute (3) Hyperlipidemia Code(s): E78.5 - HYPERLIPIDEMIA, UNSPECIFIED Status: Chronic (4) Restless leg syndrome Status: Chronic (5) Diabetes Code(s): E11.9 - TYPE 2 DIABETES MELLITUS WITHOUT COMPLICATIONS Status: Chronic (6) Hypertension Code(s): I10 - ESSENTIAL (PRIMARY) HYPERTENSION Status: Chronic (7) CONSTANTINO (obstructive sleep apnea) Code(s): G47.33 - OBSTRUCTIVE SLEEP APNEA (ADULT) (PEDIATRIC) Status: Chronic (8) Breast cancer Status: Chronic - Plan S/p I&D and washout of left total hip replacement arthroplasty: Cultures positive for klebsiella pneumoniae and presumptive e. coli On antibiotics, remains afebrile Awaiting ID review/recommendations Obtain BMP and assess renal function Urine retention: Henriquez catheter re-inserted Decreased appetite: Low albumin, replaced Auditor/Quality consulted Type 2 DM: Monitor glucose Insulin sliding scale Home meds on hold due to hypoglycemic episodes Hypertension: Home medications restarted Continue to monitor BP Breast cancer: Hold Tamoxifen, as per recommendations from Oncology Fup as outpatient to discuss further treatment vs. discontinuation Hyperlipidemia: Continue statin Restless leg syndrome: Continue ropinirole CONSTANTINO: stable DVT Prophylaxis: Mechanical SCDs
[2020-09-28] MEDS ORDERED: Albumin 25% 25 GM/100 ML BOT IVPB SCH (17:15)
[2020-09-28] MEDS: Rosuvastatin 10 MG TAB PO SCH (21:33)
[2020-09-28] MEDS: rOPINIRole HCl 0.5 MG TAB PO SCH (21:34)
[2020-09-28] MEDS: INSULIN GLARGINE SC SCH (21:35)
[2020-09-28] MEDS: PRE FILLED SC SCH (21:35)
[2020-09-29] MEDS: MEROPENEM 1 GM/50 ML 1 GM in Premix Bag 1 BAG IVPB SCH ×3 (01:39→17:27)
[2020-09-29] MEDS: Sodium Chloride 0.9% 1,000 ML IV SCH ×2 (02:32→15:29)
[2020-09-29 05:48] LABS: #Eosinphils 0.3 thou/uL (0.0-0.7); #Lymphocytes 1.9 thou/uL (1.20-3.40); #Monocytes 0.8 thou/uL (0.11-0.59); #Neutrophils 5.2 thou/uL (1.40-6.50); %Basophils 0.3 % (0.0-1.0); %Lymphocytes 22.9 % (21.0-51.0); %Monocytes 9.4 % (0.0-10.0); %Neutrophils 63.4 % (42.0-75.0); Hemoglobin 8.1 g/dL (12.0-16.0); Mean Corpuscular HGB CONC 32.1 g/dL (32.0-36.0); Mean Corpuscular Hemoglobin 32.1 pg (27.0-31.0); Mean Platelet Volume 8.7 fL (7.4-10.4); Platelet Count 236 thou/uL (130-400); Red Blood Cell (RBC) Count 2.51 mill/uL (4.20-5.40); White Blood Cell (WBC) Count 8.2 thou/uL (4.8-10.8)
[2020-09-29] MEDS: Cyanocobalamin (Vitamin B-12) 1,000 MCG TAB PO SCH (08:39)
[2020-09-29] MEDS: Multivitamin W/ Minerals 1 TAB PO SCH (08:41)
[2020-09-29] MEDS: Ferrous Gluconate 324 MG TAB PO SCH ×2 (08:41→20:24)
[2020-09-29] MEDS: Aspirin 81 mg Enteric Coated Tablet PO SCH ×2 (08:41→20:24)
[2020-09-29] MEDS: Lactinex Tablet PO SCH (08:41)
[2020-09-29] MEDS: Magnesium Oxide 400 MG TAB PO SCH (08:41)
[2020-09-29] MEDS: Senokot S 8.6-50 MG TAB PO SCH ×2 (08:41→20:30)
[2020-09-29] MEDS: HumaLOG 300 UNITS/3 ML VIAL SC PRN ×2 (12:23→16:31)
--- NOTE | 2020-09-29 15:26 | PRG ---
DATE OF SERVICE: 09/29/2020 SUBJECTIVE: Ms. Leary does not have any respiratory symptoms. No abdominal pain or diarrhea. The catheter had to be reinserted due to urinary retention. OBJECTIVE: GENERAL: She is oriented to person, place, and time. Appears appropriate and follows commands. When using the rolling walker, a little bit weak for ambulation. VITAL SIGNS: T-max was 99.7 yesterday at 4 p.m. She is now 98.5, BP 110/57, heart rate 88, O2 saturation 99% on room air. There is a peripheral IV access and the Prasad catheter has been removed again. She is voiding in the bedside commode. LUNGS: Symmetrical breath sounds. HEART: S1, S2 regular rate. ABDOMEN: Soft. The hip incision appears dry. LABORATORY DATA: Showed a white cell count down to 8.2, hemoglobin 8.1, platelets 236. Creatinine 0.94. Microbiology, we have ESBL E coli and Klebsiella pneumo in the sample. The ESBL E coli is resistant to quinolones, susceptible to trimethoprim sulfa. Both organisms are susceptible to trimethoprim sulfa. ASSESSMENT AND DISCUSSION: Type 2 diabetes, hypertension, sleep apnea, osteoarthritis with recent left hip replacement. Postop hematoma which got infected. Two different gram-negative rods. 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 We will continue meropenem and arrange for Invanz or ertapenem in the outpatient setting for 42 days, after that, transition to oral Bactrim for suppressive therapy. Monitor weekly labs. Job ID: [id number]
--- NOTE | 2020-09-29 17:38 | PDOC.HOSPP ---
- Subjective Encounter Date: 09/29/20 Encounter Time: 11:30 Subjective: Patient seen and examined for medical management. Denies any fever or chills. Pain controlled. No nausea or vomiting. - Objective Vital Signs & Weight: Vital Signs (12 hours) Temp Pulse Resp BP Pulse Ox 09/29/20 15:43 98.5 F 82 18 120/71 98 09/29/20 11:17 98.5 F 88 18 110/57 L 99 09/29/20 08:45 99 09/29/20 07:18 98.7 F 80 18 141/75 H 99 Weight Admit Weight 220 lb 8 oz Weight 220 lb 8 oz I&O: 09/28/20 09/29/20 09/30/20 06:59 06:59 06:59 Intake Total 1999 1590 540 Output Total 2141 900 Balance -141 690 540 Result Diagrams: 09/29/20 05:35 09/28/20 05:36 Additional Labs: Accuchecks 09/29/20 09/29/20 09/29/20 15:39 11:17 06:06 POC Glucose 195 H 220 H 139 H 09/28/20 20:29 POC Glucose 146 H Abnormal Lab Results - Last 48 hrs 09/27/20 17:58: Urine Protein 30 A, Urine Glucose (UA) Greater than 1000 A, Urine Ketones Trace A, Urine Blood Trace A, Amorphous Crystals Rare A, Urine Bacteria 1+ A, Urine Culture Reflexed Yes A 09/28/20 05:36: Chloride 108 H, Carbon Dioxide 20 L, AST 61 H, Serum Total Protein 5.9 L, Albumin 2.7 L, Albumin/Globulin Ratio 0.8 L 09/28/20 05:36: WBC 14.8 H, RBC 2.66 L, Hgb 8.7 L, Hct 26.6 L, MCV 100.0 H, MCH 32.6 H, Lymphocytes % 16.4 L, Neutrophils # 11.1 H, Monocytes # 1.2 H 09/28/20 05:36: WBC 14.8 H, RBC 2.58 L, Hgb 8.5 L, Hct 25.8 L, MCV 100.0 H, MCH 32.8 H 09/29/20 05:35: RBC 2.51 L, Hgb 8.1 L, Hct 25.1 L, MCV 100.0 H, MCH 32.1 H, Monocytes # 0.8 H Microbiology - Entire Visit 09/27/20 18:35 Urine Straight Catheter Urine Culture - Final NO GROWTH AT 48 HOURS 09/25/20 17:08 Hip - Left Bacterial Culture - Final Klebsiella pneumoniae ssp pneu Escherichia coli 09/25/20 17:08 Hip - Left Anaerobic Culture - Final 09/25/20 17:09 Joint - Left Bacterial Culture - Final Escherichia coli Klebsiella pneumoniae ssp pneu 09/25/20 17:09 Joint - Left Anaerobic Culture - Final Hospitalist ROS - Review of Systems Cardiovascular: denies: chest pain, palpitations, orthopnea, paroxysmal noc. dyspnea, edema, light headedness, other Gastrointestinal: denies: nausea, vomiting, abdominal pain, diarrhea, constipation, melena, hematochezia, other - Medication Medications: Active Medications Generic Name Dose Route Start Last Admin Trade Name Freq PRN Reason Stop Dose Admin Hydrocodone Bitart/Acetaminophen 1 tab 09/25/20 19:16 09/27/20 14:24 Hydrocodone/Acetaminophen 10/325 Mg Tablet PO 1 tab Q4H PRN Administration Moderate Pain (4-6) Acidophilus 1 tab 09/26/20 09:00 09/29/20 08:41 Lactinex Tablet PO 1 tab DAILY [place] Administration Aspirin 81 mg 09/25/20 21:00 09/29/20 08:41 Aspirin 81 Mg Enteric Coated Tablet PO 81 mg BID [place] Administration Calcitriol 0.25 mcg 09/26/20 08:00 09/28/20 08:54 Calcitriol 0.25 Mcg Cap PO 0.25 mcg Q2DAYS [place] Administration Cyanocobalamin 2,500 mcg 09/26/20 09:00 09/29/20 08:39 Cyanocobalamin (Vitamin B-12) 1,000 Mcg Tab PO 2,500 mcg DAILY [place] Administration Ferrous Gluconate 324 mg 09/26/20 09:00 09/29/20 08:41 Ferrous Gluconate 324 Mg Tab PO 324 mg BID [place] Administration Sodium Chloride 1,000 mls @ 100 mls/hr 09/25/20 19:16 09/29/20 15:29 Normal Saline 0.9% IV Not Given .Q10H [place] Insulin Glargine 75 units/ 0.75 mls @ 0 mls/hr 09/26/20 21:00 09/28/20 21:35 Miscellaneous Medication SC Not Given HS [place] As Directed Meropenem 1 gm/ Device 50 mls @ 200 mls/hr 09/27/20 18:00 09/29/20 17:27 IVPB 50 mls 0200,1000,1800 [place] Administration Insulin Human Lispro 0 units 09/26/20 09:33 09/29/20 16:31 Humalog 300 Units/3 Ml Vial SC 2 unit .MODERATE SLIDING SC PRN Administration Moderate Correctional Scale Insulin Human Lispro 0 units 09/26/20 09:33 09/27/20 20:38 Humalog 300 Units/3 Ml Vial SC 3 unit .BEDTIME SLIDING SC PRN Administration Bedtime Correctional Scale Iron/Minerals/Multivitamins 1 tab 09/26/20 09:00 09/29/20 08:41 Multivitamin W/ Minerals 1 Tab PO 1 tab DAILY [place] Administration Magnesium Oxide 400 mg 09/26/20 09:00 09/29/20 08:41 Magnesium Oxide 400 Mg Tab PO 400 mg DAILY [place] Administration Metoprolol Succinate 50 mg 09/26/20 21:00 09/28/20 21:34 Metoprolol Succinate Xl 50 Mg Tab PO 50 mg QPM [place] Administration Ropinirole HCl 0.5 mg 09/26/20 21:00 09/28/20 21:34 Ropinirole Hcl 0.5 Mg Tab PO 0.5 mg QPM [place] Administration Rosuvastatin Calcium 10 mg 09/26/20 21:00 09/28/20 21:33 Rosuvastatin 10 Mg Tab PO 10 mg QPM [place] Administration Senna/Docusate Sodium 2 tab 09/26/20 09:00 09/29/20 08:41 Senokot S 8.6-50 Mg Tab PO 2 tab BID [place] Administration Tramadol HCl 100 mg 09/25/20 19:16 09/26/20 02:42 Tramadol Hcl 50 Mg Tab PO 100 mg Q6H PRN Administration Moderate Pain (4-6) - Exam General Appearance: NAD Respiratory: no tachypnea Extremities: no cyanosis, no clubbing Neurological: no new deficit Musculoskeletal: generalized weakness Psychiatric: normal affect, A&O x 3 Hosp A/P - Plan DVT proph w/SCDs Diabetes mellitus type 2 Hypertension Hyperlipidemia Restless leg syndrome History of breast cancer Urinary retention requiring Prasad catheter Obstructive sleep apnea Morbid obesity with a BMI of 40.3 Chronic anemia suspected due to nutritional deficiency Plan: Continue current dose of Lantus. DC IV fluids when tolerating p.o. Continue antibiotics per infectious disease. Continue Toprol-XL. Continue Cr estor and ropinirole. Will continue to follow
[2020-09-29] MEDS: Rosuvastatin 10 MG TAB PO SCH (20:24)
[2020-09-29] MEDS: rOPINIRole HCl 0.5 MG TAB PO SCH (20:24)
[2020-09-29] MEDS: INSULIN GLARGINE SC SCH (20:25)
[2020-09-29] MEDS: PRE FILLED SC SCH (20:25)
[2020-09-30] MEDS: Sodium Chloride 0.9% 1,000 ML IV SCH ×3 (00:19→17:39)
[2020-09-30] MEDS: MEROPENEM 1 GM/50 ML 1 GM in Premix Bag 1 BAG IVPB SCH ×3 (01:22→17:28)
[2020-09-30] MEDS: Senokot S 8.6-50 MG TAB PO SCH ×2 (08:50→21:22)
[2020-09-30] MEDS: Multivitamin W/ Minerals 1 TAB PO SCH (08:51)
[2020-09-30] MEDS: Aspirin 81 mg Enteric Coated Tablet PO SCH ×2 (08:51→21:22)
[2020-09-30] MEDS: Ferrous Gluconate 324 MG TAB PO SCH ×2 (08:51→21:23)
[2020-09-30] MEDS: Lactinex Tablet PO SCH (08:51)
[2020-09-30] MEDS: Calcitriol 0.25 MCG CAP PO SCH (08:51)
[2020-09-30] MEDS: Cyanocobalamin (Vitamin B-12) 1,000 MCG TAB PO SCH (08:51)
[2020-09-30] MEDS: Magnesium Oxide 400 MG TAB PO SCH (08:51)
[2020-09-30] MEDS ORDERED: Clopidogrel Bisulfate 75 MG TAB ONE (09:00)
[2020-09-30] MEDS: HumaLOG 300 UNITS/3 ML VIAL SC PRN ×3 (11:45→21:23)
--- NOTE | 2020-09-30 18:43 | PDOC.HOSPP ---
- Subjective Encounter Date: 09/30/20 Encounter Time: 12:30 Subjective: Patient seen and examined for medical management. Denies any nausea, vomiting or diarrhea. No chest pain or shortness of breath. - Objective Vital Signs & Weight: Vital Signs (12 hours) Temp Pulse Resp BP BP BP Pulse Ox 09/30/20 15:49 98.5 F 90 16 134/70 96 09/30/20 13:41 125/72 114/64 09/30/20 10:50 98.7 F 82 18 112/67 96 09/30/20 08:50 97 09/30/20 07:30 73 16 115/65 97 Weight Admit Weight 220 lb 8 oz Weight 220 lb 8 oz I&O: 09/29/20 09/30/20 10/01/20 06:59 06:59 06:59 Intake Total 1590 840 880 Output Total 900 1150 500 Balance 690 -310 380 Result Diagrams: 09/29/20 05:35 09/28/20 05:36 Additional Labs: Accuchecks 09/30/20 09/30/20 15:50 10:49 POC Glucose 213 H 177 H Abnormal Lab Results - Last 48 hrs 09/29/20 05:35: RBC 2.51 L, Hgb 8.1 L, Hct 25.1 L, MCV 100.0 H, MCH 32.1 H, Monocytes # 0.8 H Microbiology - Entire Visit 09/27/20 18:35 Urine Straight Catheter Urine Culture - Final NO GROWTH AT 48 HOURS 09/25/20 17:08 Hip - Left Bacterial Culture - Final Klebsiella pneumoniae ssp pneu Escherichia coli 09/25/20 17:08 Hip - Left Anaerobic Culture - Final 09/25/20 17:09 Joint - Left Bacterial Culture - Final Escherichia coli Klebsiella pneumoniae ssp pneu 09/25/20 17:09 Joint - Left Anaerobic Culture - Final Hospitalist ROS - Review of Systems Cardiovascular: denies: chest pain, palpitations, orthopnea, paroxysmal noc. dyspnea, edema, light headedness, other Gastrointestinal: denies: nausea, vomiting, abdominal pain, diarrhea, constipation, melena, hematochezia, other - Medication Medications: Active Medications Generic Name Dose Route Start Last Admin Trade Name Freq PRN Reason Stop Dose Admin Hydrocodone Bitart/Acetaminophen 1 tab 09/25/20 19:16 12/31/20 14:24 Hydrocodone/Acetaminophen 10/325 Mg Tablet PO 1 tab Q4H PRN Administration Moderate Pain (4-6) Acidophilus 1 tab 09/26/20 09:00 09/30/20 08:51 Lactinex Tablet PO 1 tab DAILY [place] Administration Aspirin 81 mg 09/25/20 21:00 09/30/20 08:51 Aspirin 81 Mg Enteric Coated Tablet PO 81 mg BID [place] Administration Calcitriol 0.25 mcg 09/26/20 08:00 09/30/20 08:51 Calcitriol 0.25 Mcg Cap PO 0.25 mcg Q2DAYS [place] Administration Cyanocobalamin 2,500 mcg 09/26/20 09:00 09/30/20 08:51 Cyanocobalamin (Vitamin B-12) 1,000 Mcg Tab PO 2,500 mcg DAILY [place] Administration Ferrous Gluconate 324 mg 09/26/20 09:00 09/30/20 08:51 Ferrous Gluconate 324 Mg Tab PO 324 mg BID [place] Administration Sodium Chloride 1,000 mls @ 100 mls/hr 09/25/20 19:16 09/30/20 17:39 Normal Saline 0.9% IV Not Given .Q10H [place] Insulin Glargine 75 units/ 0.75 mls @ 0 mls/hr 09/26/20 21:00 09/29/20 20:25 Miscellaneous Medication SC 0.75 mls HS [place] Administration As Directed Meropenem 1 gm/ Device 50 mls @ 200 mls/hr 09/27/20 18:00 09/30/20 17:28 IVPB 50 mls 0200,1000,1800 [place] Administration Insulin Human Lispro 0 units 09/26/20 09:33 09/30/20 17:28 Humalog 300 Units/3 Ml Vial SC 4 unit .MODERATE SLIDING SC PRN Administration Moderate Correctional Scale Insulin Human Lispro 0 units 09/26/20 09:33 09/27/20 20:38 Humalog 300 Units/3 Ml Vial SC 3 unit .BEDTIME SLIDING SC PRN Administration Bedtime Correctional Scale Iron/Minerals/Multivitamins 1 tab 09/26/20 09:00 09/30/20 08:51 Multivitamin W/ Minerals 1 Tab PO 1 tab DAILY [place] Administration Magnesium Oxide 400 mg 09/26/20 09:00 09/30/20 08:51 Magnesium Oxide 400 Mg Tab PO 400 mg DAILY [place] Administration Metoprolol Succinate 50 mg 09/26/20 21:00 09/29/20 20:24 Metoprolol Succinate Xl 50 Mg Tab PO 50 mg QPM [place] Administration Ropinirole HCl 0.5 mg 09/26/20 21:00 09/29/20 20:24 Ropinirole Hcl 0.5 Mg Tab PO 0.5 mg QPM [place] Administration Rosuvastatin Calcium 10 mg 09/26/20 21:00 09/29/20 20:24 Rosuvastatin 10 Mg Tab PO 10 mg QPM [place] Administration Senna/Docusate Sodium 2 tab 09/26/20 09:00 09/30/20 08:50 Senokot S 8.6-50 Mg Tab PO 2 tab BID [place] Administration Tramadol HCl 100 mg 09/25/20 19:16 09/26/20 02:42 Tramadol Hcl 50 Mg Tab PO 100 mg Q6H PRN Administration Moderate Pain (4-6) - Exam General Appearance: NAD Neck: supple, no JVD Heart: RRR, no gallops Respiratory: no wheezes, no ronchi Gastrointestinal: soft, non-distended, no guarding, no rigidity Extremities: no cyanosis Neurological: no new deficit Hosp A/P - Plan DVT proph w/SCDs Diabetes mellitus type 2 Hypertension Hyperlipidemia Restless leg syndrome History of breast cancer Urinary retention requiring Prasad catheter Obstructive sleep apnea Morbid obesity with a BMI of 40.3 Chronic anemia suspected due to nutritional deficiency Plan: Continue IV meropenem per infectious disease. Continue current dose of Lantus with sliding scale. Continue Toprol-XL. Pain control. Patient is requesting home health care. Continue other medications as above
[2020-09-30] MEDS: Rosuvastatin 10 MG TAB PO SCH (21:22)
[2020-09-30] MEDS: rOPINIRole HCl 0.5 MG TAB PO SCH (21:22)
[2020-09-30] MEDS: INSULIN GLARGINE SC SCH (21:23)
[2020-09-30] MEDS: PRE FILLED SC SCH (21:23)
[2020-09-30] MEDS: traMADol HCl 50 MG TAB PO PRN (23:25)
[2020-10-01] MEDS: MEROPENEM 1 GM/50 ML 1 GM in Premix Bag 1 BAG IVPB SCH ×2 (02:11→18:50)
[2020-10-01 06:11] LABS: #Eosinphils 0.4 thou/uL (0.0-0.7); #Lymphocytes 2.6 thou/uL (1.20-3.40); #Neutrophils 4.5 thou/uL (1.40-6.50); %Basophils 0.4 % (0.0-1.0); %Eosinophils 4.9 % (0.0-10.0); %Lymphocytes 30.5 % (21.0-51.0); %Monocytes 11.8 % (0.0-10.0); %Neutrophils 52.5 % (42.0-75.0); Hemoglobin 7.2 g/dL (12.0-16.0); Mean Corpuscular HGB CONC 31.7 g/dL (32.0-36.0); Mean Corpuscular Hemoglobin 31.4 pg (27.0-31.0); Mean Corpuscular Volume 98.9 fL (78.0-98.0); Mean Platelet Volume 8.1 fL (7.4-10.4); Platelet Count 297 thou/uL (130-400); Red Blood Cell (RBC) Count 2.31 mill/uL (4.20-5.40); White Blood Cell (WBC) Count 8.6 thou/uL (4.8-10.8)
[2020-10-01 06:33] LABS: ALT (SGPT) 96 U/L (8-55); AST (SGOT) 107 U/L (5-34); Albumin 2.7 g/dL (3.4-4.8); Alkaline Phosphatase 66 U/L (40-110); Anion Gap 13 mmol/L (10-20); BUN (Urea Nitrogen) 24 mg/dL (9.8-20.1); Bilirubin, Total 0.6 mg/dL (0.2-1.2); Calc. Creatinine Clearance 91 mL/min (70-130); Calcium 8.8 mg/dL (7.8-10.44); Carbon Dioxide 28 mmol/L (23-31); Chloride 105 mmol/L (98-107); Globulin 3.1 g/dL (2.4-3.5); Glucose 125 mg/dL (83-110); Magnesium 1.9 mg/dL (1.6-2.6); Potassium 3.3 mmol/L (3.5-5.1); Protein, Total 5.8 g/dL (6.0-8.3); Sodium 143 mmol/L (136-145)
[2020-10-01] MEDS: Sodium Chloride 0.9% 1,000 ML IV SCH ×2 (06:45→14:23)
[2020-10-01] MEDS: Multivitamin W/ Minerals 1 TAB PO SCH (08:46)
[2020-10-01] MEDS: Magnesium Oxide 400 MG TAB PO SCH (08:46)
[2020-10-01] MEDS: Aspirin 81 mg Enteric Coated Tablet PO SCH ×2 (08:46→21:07)
[2020-10-01] MEDS: Lactinex Tablet PO SCH (08:46)
[2020-10-01] MEDS: Ferrous Gluconate 324 MG TAB PO SCH ×2 (08:46→21:08)
[2020-10-01] MEDS: Senokot S 8.6-50 MG TAB PO SCH ×2 (08:46→21:07)
[2020-10-01] MEDS: Cyanocobalamin (Vitamin B-12) 1,000 MCG TAB PO SCH (08:46)
[2020-10-01] MEDS ORDERED: Meropenem 1 GM in Sodium Chloride 0.9% 100 ML IVPB SCH (10:00)
[2020-10-01] MEDS ORDERED: Furosemide 20 MG/2 ML VIAL SLOW IVP SCH (11:15)
--- NOTE | 2020-10-01 11:17 | SPC ---
Left upper extremity PICC placement sonographic guided HISTORY: Septic arthritis. FINDINGS: After explaining the procedure and answering all questions, the left upper extremity was pr epped and draped in usual sterile fashion. Sterile technique, buffered local anesthesia, sonographic guidance, and a 22-gauge needle were used t o carefully access the left basilic vein. Standard technique was used to place the tip of a 5 Maori single lumen PICC so that the tip lies at the level of the cavoatrial junction. Catheter was flushed and secured externally. Patient tolerated the procedure well and was returned in unchanged condition. Fluoroscopy time 0 seconds. IMPRESSION : Left upper extremity PICC is ready for use.
--- NOTE | 2020-10-01 11:43 | PRG ---
DATE OF SERVICE: 10/01/2020 SUBJECTIVE: The patient is now three weeks status post left total hip replacement and 6 days status post incision and drainage for infected hematoma. Her wound has grown out Klebsiella and E coli. She has been on her antibiotics per Dr. Godfrey. She is feeling better, but still has persistent drainage. The wound is somewhat red. I am concerned this represents persistent infection. The drainage has persisted and has not decreased. In addition, her H and H are drifted down to 7.2 and 22.8. IMPRESSION: 1. Infected left total hip replacement. 2. Anemia secondary to blood loss and component of chronic disease. PLAN: The patient will be transfused with 2 units of packed cells today. We will take her back to the operating room tomorrow for repeat incision and drainage with probable revision of the left total hip components and placement of antibiotic cement spacers. The nature of the surgery, length of recovery, and potential complications were discussed in detail including persistent infection, need for additional surgery, need for additional transfusion, fracture of the femur and need for revision, leg-length discrepancy, and neurovascular injury were discussed in detail. Job ID: [id number]
[2020-10-01] MEDS: Potassium Chloride 20 MEQ TAB PO SCH ×2 (12:06→17:27)
[2020-10-01] MEDS: HumaLOG 300 UNITS/3 ML VIAL SC PRN ×2 (17:31→21:10)
--- NOTE | 2020-10-01 18:00 | PRG ---
DATE OF SERVICE: 10/01/2020 SUBJECTIVE: The patient is using a rolling walker for ambulation; still a little bit weak, mild. Breathing without any effort, appears comfortable at rest. Has an indwelling Prasad catheter. OBJECTIVE: VITAL SIGNS: The T-max 98.5, BP 120/60, heart rate 73, respirations 16, O2 saturation 96% on room air. LUNGS: Clear. HEART: S1 and S2, regular rate. ABDOMEN: Soft, not distended. SKIN: Hip incision is dry. LABORATORY DATA: White cell count is down to 8.6, hemoglobin 7.2, platelets 297, creatinine 0.82, AST 107, ALT 96, albumin 2.7. She had a PICC line inserted by Dr. Davila. ASSESSMENT AND DISCUSSION: Type 2 diabetes, hypertension, sleep apnea, osteoarthritis, left hip replacement, and postop hematoma which became infected. Two gram-negative sixto organisms, one of them has an ESBL phenotype. Plan is to continue either meropenem or Invanz in the outpatient setting for 6 weeks and then transition to oral Bactrim, suppressive therapy. Job ID: [id number]
[2020-10-01] MEDS: Rosuvastatin 10 MG TAB PO SCH (21:07)
[2020-10-01] MEDS: rOPINIRole HCl 0.5 MG TAB PO SCH (21:09)
[2020-10-01] MEDS: traMADol HCl 50 MG TAB PO PRN (21:09)
[2020-10-01] MEDS: INSULIN GLARGINE SC SCH (21:10)
[2020-10-01] MEDS: PRE FILLED SC SCH (21:10)
--- NOTE | 2020-10-01 23:07 | PDOC.HOSPP ---
- Subjective Encounter Date: 10/01/20 Encounter Time: 11:30 Subjective: Patient seen and examined for medical management. Pain controlled. Denies any chest pain or shortness of breath. Underwent PICC line placement. - Objective Vital Signs & Weight: Vital Signs (12 hours) Temp Pulse Pulse Resp BP BP Pulse Ox 10/01/20 22:40 98.6 F 62 20 119/54 L 95 10/01/20 20:53 98.5 F 83 19 127/77 94 L 10/01/20 16:53 97.8 F 73 16 125/62 96 10/01/20 16:15 98.1 F 79 18 136/57 L 10/01/20 14:05 98.5 F 82 18 112/72 10/01/20 13:45 98.5 F 96 18 108/72 10/01/20 12:09 98.4 F 76 14 125/74 96 Weight Admit Weight 220 lb 8 oz Weight 220 lb 8 oz I&O: 09/30/20 10/01/20 10/02/20 06:59 06:59 06:59 Intake Total 840 1760 1130 Output Total 1150 1300 1400 Balance -310 460 -270 Result Diagrams: 10/01/20 05:29 10/01/20 05:29 Additional Labs: Accuchecks 10/01/20 10/01/20 10/01/20 20:11 15:42 10:26 POC Glucose 296 H 234 H 99 10/01/20 09/30/20 09/29/20 05:17 05:18 20:21 POC Glucose 120 H 130 H 269 H Hospitalist ROS - Review of Systems Respiratory: denies: cough, dry, shortness of breath, hemoptysis, SOB with excertion, pleuritic pain, sputum, wheezing, other Cardiovascular: denies: chest pain, palpitations, orthopnea, paroxysmal noc. dyspnea, edema, light headedness, other - Medication Medications: Active Medications Generic Name Dose Route Start Last Admin Trade Name Freq PRN Reason Stop Dose Admin Hydrocodone Bitart/Acetaminophen 1 tab 09/25/20 19:16 09/27/20 14:24 Hydrocodone/Acetaminophen 10/325 Mg Tablet PO 1 tab Q4H PRN Administration Moderate Pain (4-6) Acidophilus 1 tab 09/26/20 09:00 10/01/20 08:46 Lactinex Tablet PO 1 tab DAILY [place] Administration Aspirin 81 mg 09/25/20 21:00 10/01/20 21:07 Aspirin 81 Mg Enteric Coated Tablet PO Not Given BID [place] Calcitriol 0.25 mcg 09/26/20 08:00 09/30/20 08:51 Calcitriol 0.25 Mcg Cap PO 0.25 mcg Q2DAYS [place] Administration Cyanocobalamin 2,500 mcg 09/26/20 09:00 10/01/20 08:46 Cyanocobalamin (Vitamin B-12) 1,000 Mcg Tab PO 2,500 mcg DAILY [place] Administration Ferrous Gluconate 324 mg 09/26/20 09:00 10/01/20 21:08 Ferrous Gluconate 324 Mg Tab PO 324 mg BID [place] Administration Sodium Chloride 1,000 mls @ 100 mls/hr 09/25/20 19:16 10/01/20 14:23 Normal Saline 0.9% IV Not Given .Q10H [place] Insulin Glargine 75 units/ 0.75 mls @ 0 mls/hr 09/26/20 21:00 10/01/20 21:10 Miscellaneous Medication SC 0.75 mls HS [place] Administration As Directed Meropenem 1 gm/ Device 50 mls @ 100 mls/hr 10/01/20 18:00 10/01/20 18:50 IVPB 50 mls 0200,1000,1800 [place] Administration Insulin Human Lispro 0 units 09/26/20 09:33 10/01/20 17:31 Humalog 300 Units/3 Ml Vial SC 4 unit .MODERATE SLIDING SC PRN Administration Moderate Correctional Scale Insulin Human Lispro 0 units 09/26/20 09:33 10/01/20 21:10 Humalog 300 Units/3 Ml Vial SC 3 unit .BEDTIME SLIDING SC PRN Administration Bedtime Correctional Scale Iron/Minerals/Multivitamins 1 tab 09/26/20 09:00 10/01/20 08:46 Multivitamin W/ Minerals 1 Tab PO 1 tab DAILY [place] Administration Magnesium Oxide 400 mg 09/26/20 09:00 10/01/20 08:46 Magnesium Oxide 400 Mg Tab PO 400 mg DAILY [place] Administration Metoprolol Succinate 50 mg 09/26/20 21:00 10/01/20 21:08 Metoprolol Succinate Xl 50 Mg Tab PO 50 mg QPM [place] Administration Ropinirole HCl 0.5 mg 09/26/20 21:00 10/01/20 21:09 Ropinirole Hcl 0.5 Mg Tab PO 0.5 mg QPM [place] Administration Rosuvastatin Calcium 10 mg 09/26/20 21:00 10/01/20 21:07 Rosuvastatin 10 Mg Tab PO 10 mg QPM [place] Administration Senna/Docusate Sodium 2 tab 09/26/20 09:00 10/01/20 21:07 Senokot S 8.6-50 Mg Tab PO 2 tab BID [place] Administration Tramadol HCl 100 mg 09/25/20 19:16 10/01/20 21:09 Tramadol Hcl 50 Mg Tab PO 100 mg Q6H PRN Administration Moderate Pain (4-6) - Exam General Appearance: NAD Neck: supple, no JVD Heart: RRR, no gallops Respiratory: no rales, no ronchi Gastrointestinal: soft, no guarding, no rigidity Extremities: no cyanosis Neurological: no new deficit Hosp A/P - Plan DVT proph w/SCDs Diabetes mellitus type 2 Hypertension Hyperlipidemia Restless leg syndrome History of breast cancer Urinary retention requiring Prasad catheter Obstructive sleep apnea Morbid obesity with a BMI of 40.3 Chronic anemia suspected due to nutritional deficiency Plan: S/p PICC line. Continue Lantus 75 units qhs along with sliding scale. Continue Toprol-XL. Replace potassium. Continue physical therapy. Continue other medications as above. Recheck labs in a.m. DVT prophylaxis per protocol.
[2020-10-01] MEDS ORDERED: Electrolyte Replacement Protocol 1 EACH FS SCH (23:15)
[2020-10-02] MEDS: MEROPENEM 1 GM/50 ML 1 GM in Premix Bag 1 BAG IVPB SCH ×2 (01:10→07:30)
[2020-10-02] MEDS ORDERED: Tranexamic Acid 1,000 MG in Sodium Chloride 0.9% 250 ML 250 ML IVPB SCH (06:45)
[2020-10-02] MEDS ORDERED: Tranexamic Acid 1,000 MG/10 ML VIAL ONE ×2 (06:59→10:33)
[2020-10-02] MEDS ORDERED: Sodium Chloride 0.9% 100 ML ONE (06:59)
[2020-10-02 07:01] LABS: Hemoglobin 9.9 g/dL (12.0-16.0); Mean Corpuscular HGB CONC 31.4 g/dL (32.0-36.0); Mean Corpuscular Volume 95.4 fL (78.0-98.0); Mean Platelet Volume 9.7 fL (7.4-10.4); Platelet Count 258 thou/uL (130-400); Red Blood Cell (RBC) Count 3.29 mill/uL (4.20-5.40); White Blood Cell (WBC) Count 11.7 thou/uL (4.8-10.8)
[2020-10-02] MEDS ORDERED: HYDROmorphone 2 MG/ML VIAL ONE (07:17)
[2020-10-02] MEDS ORDERED: Ketamine 50 MG/ML (10ML VIAL) ONE (07:17)
[2020-10-02] MEDS ORDERED: SUGAMMADEX SODIUM 200 MG/2 ML VIAL ONE (07:18)
[2020-10-02] MEDS ORDERED: Famotidine/PF 20 mg/2ml Vial ONE (07:18)
[2020-10-02 07:40] LABS: ALT (SGPT) 75 U/L (8-55); AST (SGOT) 59 U/L (5-34); Albumin 2.8 g/dL (3.4-4.8); Alkaline Phosphatase 69 U/L (40-110); Anion Gap 13 mmol/L (10-20); BUN (Urea Nitrogen) 24 mg/dL (9.8-20.1); Bilirubin, Total 0.5 mg/dL (0.2-1.2); Calc. Creatinine Clearance 86 mL/min (70-130); Calcium 8.5 mg/dL (7.8-10.44); Carbon Dioxide 30 mmol/L (23-31); Chloride 103 mmol/L (98-107); Globulin 3.3 g/dL (2.4-3.5); Glucose 89 mg/dL (83-110); Potassium 3.7 mmol/L (3.5-5.1); Protein, Total 6.1 g/dL (6.0-8.3); Sodium 142 mmol/L (136-145)
[2020-10-02] MEDS ORDERED: Tobramycin Sulfate 1.2 GM VIAL ONE (08:19)
[2020-10-02] MEDS ORDERED: Albumin 5% 500 ML ONE (09:00)
[2020-10-02] MEDS ORDERED: Tranexamic Acid 1,000 MG in Sodium Chloride 0.9% 100 ML IVPB SCH (10:15)
[2020-10-02] MEDS: Multivitamin W/ Minerals 1 TAB PO SCH (10:24)
[2020-10-02] MEDS: Aspirin 81 mg Enteric Coated Tablet PO SCH ×2 (10:24→20:44)
[2020-10-02] MEDS: Magnesium Oxide 400 MG TAB PO SCH (10:24)
[2020-10-02] MEDS: Ferrous Gluconate 324 MG TAB PO SCH ×2 (10:24→20:44)
[2020-10-02] MEDS: Calcitriol 0.25 MCG CAP PO SCH (10:24)
[2020-10-02] MEDS: Cyanocobalamin (Vitamin B-12) 1,000 MCG TAB PO SCH (10:24)
[2020-10-02] MEDS: Senokot S 8.6-50 MG TAB PO SCH ×2 (10:24→20:44)
[2020-10-02] MEDS: Lactinex Tablet PO SCH (10:24)
[2020-10-02] MEDS ORDERED: Fentanyl 100 MCG/2 ML VIAL ONE ×2 (10:33→12:05)
[2020-10-02] MEDS ORDERED: Succinylcholine 200 MG/10 ml SYRINGE FS ONE (11:14)
[2020-10-02] MEDS ORDERED: ePHEDrine 50 MG/ML VIAL ONE (11:14)
[2020-10-02] MEDS ORDERED: Ondansetron PF 4 MG/2 ML Vial ONE (11:14)
[2020-10-02] MEDS ORDERED: Glycopyrrolate 0.2 MG/ML 5 ML SYRINGE ONE (11:14)
[2020-10-02] MEDS ORDERED: PROPOFOL 200 MG/20 ML VIAL ONE (11:14)
[2020-10-02] MEDS ORDERED: Rocuronium Bromide 10 MG/ML (10ML VIAL) ONE (11:14)
--- NOTE | 2020-10-02 11:15 | RAD ---
LEFT HIP 2 VIEWS: Date: 10/02/2020 HISTORY: Postop left hip. COMPARISON: 09/25/2020. FINDINGS: There is a left hip revision with absent acetabular cup. IMPRESSION: Satisfactory postoperative appearance. POS: [facility]
[2020-10-02] MEDS: Sodium Chloride 0.9% 1,000 ML IV SCH ×2 (12:56→17:42)
[2020-10-02] MEDS: Meropenem 1 GM in Sodium Chloride 0.9% 100 ML IVPB SCH ×2 (12:56→17:43)
[2020-10-02] MEDS: traMADol HCl 50 MG TAB PO PRN ×2 (13:01→18:55)
--- NOTE | 2020-10-02 13:20 | OP ---
DATE OF PROCEDURE: 10/02/2020 INFORMATION TECHNOLOGY ADMINISTRATOR: Wai Reich MD. The clerical dentist assistant co-surgeon was present through the entire procedure and was responsible for providing exposure, tissue retraction, and any necessary limb or tissue manipulation required to obtain necessary reduction or hardware placement. The clerical dentist assistant co-surgeon also provided bleeding control, tissue closure, and suturing in conjunction with the primary surgeon. ANESTHESIA: General. PREOPERATIVE DIAGNOSIS: Infected left total hip replacement. POSTOPERATIVE DIAGNOSIS: Infected left total hip replacement. PROCEDURE PERFORMED: Incision and drainage of left hip with left total hip revision with antibiotic cement spacers. OPERATIVE FINDINGS: There was bloody semi-purulent material and some necrotic tissue in the hip joint and diffusely through the subcutaneous tissues. The components were fixed, but they were removed without too much difficulty. No obvious source of the osteomyelitis. DESCRIPTION OF PROCEDURE: After satisfactory anesthesia was induced in supine position, the patient was placed in lateral decubitus position. This position was held with hip positioning device. Sequential compression device was applied to the nonoperative leg throughout the procedure. The patient's left hip was then prepped and draped in routine manner. The previous incision was opened and slightly extended proximally. Previous sutures were removed. IT band was . Adductor repair was and the hip joint exposed. Cultures were obtained from both the superficial subcutaneous tissues as well as the hip joint. The hip was dislocated anteriorly. The insertion device was screwed onto the femoral stem and this was hammered out without too much difficulty. The acetabulum was then exposed and the plastic insert removed with an osteotome and the acetabular shell was removed by inserting the insertion device in the hole and removing this by hammering out without too much difficulty. The entire wound was then copiously irrigated with approximately 5 L of pulsatile lavage, cleaned of all necrotic tissue and hematoma. The acetabulum was reamed to a total of 50 mm to bleeding subchondral bone. It was felt that a Trident E polyethylene liner could be placed in a cemented fashion with a 40 mm in inside diameter. While Dr. Reich prepared the bone cement, this was done with one package of cement with 3 g of tobramycin and 3 g of vancomycin. While this was being prepared, the acetabulum was soaked with dilute Betadine solution. This was done for several minutes and then this was irrigated out. The bony surfaces were thoroughly cleaned and dried and the permanent polyethylene acetabular shell was then cemented into position and excess cement was removed. After cement had cured, there appeared to be good fit and stability of the component. No attempt was made to forcibly pressurize the cement. The proximal femur was then exposed and cleaned with a curette and pulsatile lavage using a brush. It was thoroughly irrigated. It was also reamed with flexible reamers over the guidewire to a total of 13 mm. It was felt that a Lolita OmniFit long-stem femoral stem size #5 could be placed and trial reduction with the stem in place and a +5 40 mm neck length femoral head gave appropriate size, fit, and stability. The trial components were removed. The femoral canal was then thoroughly irrigated and Dr. Reich again prepared cement on the back table again with 3 g of tobramycin and 3 g of vancomycin. While this was being prepared, the femoral canal was irrigated and allowed to bathe in a dilute Betadine solution. This was done for several minutes and the Betadine suctioned and the canal thoroughly irrigated and then the permanent stem was then cemented in place. Only finger packing the cement primarily in the proximal canal, no attempt was made to forcibly cement down the canal. After the cement had cured, there appeared to be good fit and stability of the component. The permanent +5 neck length 40 mm metal Ettrick femoral head was then placed on the trunnion. The hip again reduced and found to be stable. The wound was thoroughly irrigated. Again, dilute Betadine solution was placed over the entire wound and the hip joint was allowed to sit for several minutes and then this was suctioned away and the wound again thoroughly irrigated with pulsatile lavage. Approximately 10 L of pulsatile lavage was used throughout the procedure. The abductors were quite friable and repaired with interrupted #2 Vicryl as best as I could. The IT band was closed with interrupted #2 Vicryl and a running #2 Quill. Subcutaneous tissues were closed with interrupted #2 Vicryl and a running 0 Quill suture. The skin was closed with a running 2-0 Prolene horizontal mattress suture. Prior to the closure of the skin, the skin edges were sharply debrided of all necrotic skin edges down to bleeding viable skin. After the wound closure was completed, a sterile dressing was applied and the patient was turned to supine position and a pillow placed between her legs and sequential compression devices were placed on her operated leg. There were no apparent intraoperative complications. The estimated blood loss was 300 mL. She was taken to the recovery room in stable condition. Job ID: [id number]
[2020-10-02] MEDS: Fentanyl 100 MCG/2 ML VIAL SLOW IVP PRN ×2 (13:58→17:51)
[2020-10-02] MEDS: HYDROcodone/Acetaminophen 10/325 mg Tablet PO PRN ×2 (15:44→20:44)
--- NOTE | 2020-10-02 17:20 | PRG ---
DATE OF SERVICE: 10/02/2020 SUBJECTIVE: The patient had a revision of the arthroplasty site of the left hip. Dr. Luque opened the previous incision and sutures removed. There were cultures obtained from the tissues. The hip was dislocated and femoral stem was hammered out without difficulty. Plastic insert removed. The acetabular shell was removed. The wound was irrigated. There was evidence of bloody semi-purulent material, some necrotic tissue in the hip joint, so liners were placed and bone cement was prepared. Acetabulum was soaked with dilute Betadine solution for several minutes and the bony surfaces cleaned and the permanent polyethylene acetabular shell was then cemented into position, then the stem was placed in the femoral area and the hip reduced. OBJECTIVE: VITAL SIGNS: The patient has remained afebrile. LUNGS: Clear. HEART: S1 and S2, regular rate. ABDOMEN: Soft. LABORATORY DATA: White cell count 11.7, hemoglobin 9.9, platelets 258. ASSESSMENT AND DISCUSSION: Type 2 diabetes, hypertension, sleep apnea, osteoarthritis, left hip replacement, postop hematoma infected with 2 different gram-negative sixto organisms. Plan is to continue meropenem or Invanz in the outpatient setting for 6 weeks and then transition to oral Bactrim suppressive therapy for a while. Job ID: [id number]
[2020-10-02] MEDS: rOPINIRole HCl 0.5 MG TAB PO SCH (20:44)
[2020-10-02] MEDS: Rosuvastatin 10 MG TAB PO SCH (20:44)
[2020-10-02] MEDS: INSULIN GLARGINE SC SCH (20:45)
[2020-10-02] MEDS: PRE FILLED SC SCH (20:45)
--- NOTE | 2020-10-02 22:52 | PDOC.HOSPP ---
- Subjective Encounter Date: 10/02/20 Encounter Time: 09:00 Subjective: Patient seen and examined for medical management. Denies any chest pain or shortness of breath. No fevers or chills reported. Pain controlled - Objective Vital Signs & Weight: Vital Signs (12 hours) Temp Pulse Resp BP Pulse Ox 10/02/20 20:15 97.7 F 79 20 112/52 L 100 10/02/20 16:15 97.7 F 10/02/20 13:00 98 10/02/20 12:45 97.7 F 70 20 113/65 94 L Weight Admit Weight 220 lb 8 oz Weight 220 lb 8 oz I&O: 10/01/20 10/02/20 10/03/20 06:59 06:59 06:59 Intake Total 1760 2355 1080 Output Total 1300 3000 450 Balance 460 -645 630 Result Diagrams: 10/02/20 05:50 10/02/20 06:53 Additional Labs: Accuchecks 10/02/20 10/02/20 10/02/20 20:24 16:49 05:24 POC Glucose 88 108 H 132 H Hospitalist ROS - Review of Systems Respiratory: denies: cough, dry, shortness of breath, hemoptysis, SOB with excertion, pleuritic pain, sputum, wheezing, other Cardiovascular: denies: chest pain, palpitations, orthopnea, paroxysmal noc. dyspnea, edema, light headedness, other - Medication Medications: Active Medications Generic Name Dose Route Start Last Admin Trade Name Freq PRN Reason Stop Dose Admin Hydrocodone Bitart/Acetaminophen 1 tab 09/25/20 19:16 09/27/20 14:24 Hydrocodone/Acetaminophen 10/325 Mg Tablet PO 1 tab Q4H PRN Administration Moderate Pain (4-6) Hydrocodone Bitart/Acetaminophen 2 tab 09/25/20 19:16 10/02/20 20:44 Hydrocodone/Acetaminophen 10/325 Mg Tablet PO 2 tab Q4H PRN Administration Severe Pain (7-10) Acidophilus 1 tab 09/26/20 09:00 10/02/20 10:24 Lactinex Tablet PO Not Given DAILY [place] Aspirin 81 mg 09/25/20 21:00 10/02/20 20:44 Aspirin 81 Mg Enteric Coated Tablet PO 81 mg BID [place] Administration Calcitriol 0.25 mcg 09/26/20 08:00 10/02/20 10:24 Calcitriol 0.25 Mcg Cap PO Not Given Q2DAYS [place] Cyanocobalamin 2,500 mcg 09/26/20 09:00 10/02/20 10:24 Cyanocobalamin (Vitamin B-12) 1,000 Mcg Tab PO Not Given DAILY [place] Fentanyl 50 mcg 09/25/20 19:16 10/02/20 17:51 Fentanyl 100 Mcg/2 Ml Vial SLOW IVP 50 mcg Q30MIN PRN Administration Moderate Pain (4-6) Ferrous Gluconate 324 mg 09/26/20 09:00 10/02/20 20:44 Ferrous Gluconate 324 Mg Tab PO 324 mg BID [place] Administration Insulin Glargine 75 units/ 0.75 mls @ 0 mls/hr 09/26/20 21:00 10/02/20 20:45 Miscellaneous Medication SC Not Given HS [place] As Directed Meropenem 1 gm/ Sodium 100 mls @ 200 mls/hr 10/02/20 10:00 10/02/20 17:43 Chloride IVPB 100 mls 0200,1000,1800 [place] Administration Sodium Chloride 1,000 mls @ 100 mls/hr 10/02/20 12:52 10/02/20 17:42 Normal Saline 0.9% IV 1,000 mls .Q10H [place] Administration Insulin Human Lispro 0 units 09/26/20 09:33 10/01/20 17:31 Humalog 300 Units/3 Ml Vial SC 4 unit .MODERATE SLIDING SC PRN Administration Moderate Correctional Scale Insulin Human Lispro 0 units 09/26/20 09:33 10/01/20 21:10 Humalog 300 Units/3 Ml Vial SC 3 unit .BEDTIME SLIDING SC PRN Administration Bedtime Correctional Scale Iron/Minerals/Multivitamins 1 tab 09/26/20 09:00 10/02/20 10:24 Multivitamin W/ Minerals 1 Tab PO Not Given DAILY [place] Magnesium Oxide 400 mg 09/26/20 09:00 10/02/20 10:24 Magnesium Oxide 400 Mg Tab PO Not Given DAILY [place] Metoprolol Succinate 50 mg 09/26/20 21:00 10/02/20 20:44 Metoprolol Succinate Xl 50 Mg Tab PO 50 mg QPM [place] Administration Ropinirole HCl 0.5 mg 09/26/20 21:00 01/05/21 20:44 Ropinirole Hcl 0.5 Mg Tab PO 0.5 mg QPM [place] Administration Rosuvastatin Calcium 10 mg 09/26/20 21:00 10/02/20 20:44 Rosuvastatin 10 Mg Tab PO 10 mg QPM [place] Administration Senna/Docusate Sodium 2 tab 09/26/20 09:00 10/02/20 20:44 Senokot S 8.6-50 Mg Tab PO 2 tab BID [place] Administration Tramadol HCl 100 mg 09/25/20 19:16 10/02/20 18:55 Tramadol Hcl 50 Mg Tab PO 100 mg Q6H PRN Administration Moderate Pain (4-6) - Exam General Appearance: NAD Neck: supple, no JVD Heart: RRR, no gallops Respiratory: no wheezes, no ronchi Gastrointestinal: soft, non-tender, normal bowel sounds Extremities: no cyanosis Hosp A/P - Plan DVT proph w/SCDs Diabetes mellitus type 2 Hypertension Hyperlipidemia Restless leg syndrome History of breast cancer Urinary retention requiring Prasad catheter Obstructive sleep apnea Morbid obesity with a BMI of 40.3 Chronic anemia suspected due to nutritional deficiency Plan: Continue supportive care. Patient is scheduled for I&D of the left hip. Continue current dose of Lantus, Toprol-XL, Requip and Crestor. Continue sliding scale. Recheck sugar at 2 AM
[2020-10-03] MEDS: HYDROcodone/Acetaminophen 10/325 mg Tablet PO PRN (01:00)
[2020-10-03] MEDS: Meropenem 1 GM in Sodium Chloride 0.9% 100 ML IVPB SCH ×3 (02:33→18:27)
[2020-10-03 05:44] LABS: Hemoglobin 7.7 g/dL (12.0-16.0); Mean Corpuscular HGB CONC 32.4 g/dL (32.0-36.0); Mean Corpuscular Hemoglobin 31.4 pg (27.0-31.0); Mean Platelet Volume 7.1 fL (7.4-10.4); Platelet Count 273 thou/uL (130-400); RBC Distribution Width 15.1 % (11.5-14.5); Red Blood Cell (RBC) Count 2.44 mill/uL (4.20-5.40); White Blood Cell (WBC) Count 12.4 thou/uL (4.8-10.8)
[2020-10-03 06:05] LABS: ALT (SGPT) 41 U/L (8-55); AST (SGOT) 34 U/L (5-34); Albumin 2.7 g/dL (3.4-4.8); Alkaline Phosphatase 59 U/L (40-110); Anion Gap 11 mmol/L (10-20); BUN (Urea Nitrogen) 24 mg/dL (9.8-20.1); Bilirubin, Total 0.5 mg/dL (0.2-1.2); Calc. Creatinine Clearance 86 mL/min (70-130); Calcium 7.7 mg/dL (7.8-10.44); Carbon Dioxide 31 mmol/L (23-31); Chloride 105 mmol/L (98-107); Globulin 2.5 g/dL (2.4-3.5); Glucose 102 mg/dL (83-110); Protein, Total 5.2 g/dL (6.0-8.3); Sodium 143 mmol/L (136-145)
[2020-10-03] MEDS: Cyanocobalamin (Vitamin B-12) 1,000 MCG TAB PO SCH (10:04)
[2020-10-03] MEDS: Lactinex Tablet PO SCH (10:05)
[2020-10-03] MEDS: Magnesium Oxide 400 MG TAB PO SCH (10:05)
[2020-10-03] MEDS: Senokot S 8.6-50 MG TAB PO SCH ×2 (10:05→20:55)
[2020-10-03] MEDS: Ferrous Gluconate 324 MG TAB PO SCH ×2 (10:05→20:56)
[2020-10-03] MEDS: Aspirin 81 mg Enteric Coated Tablet PO SCH ×2 (10:05→20:56)
[2020-10-03] MEDS: Multivitamin W/ Minerals 1 TAB PO SCH (10:06)
[2020-10-03] MEDS: traMADol HCl 50 MG TAB PO PRN (10:11)
[2020-10-03] MEDS: HumaLOG 300 UNITS/3 ML VIAL SC PRN ×3 (12:23→20:56)
[2020-10-03] MEDS: Sodium Chloride 0.9% 1,000 ML IV SCH ×2 (12:28→19:30)
--- NOTE | 2020-10-03 20:14 | PDOC.HOSPP ---
- Subjective Encounter Date: 10/03/20 Encounter Time: 12:30 Subjective: Patient seen and examined for medical management. Denies any new complaints. Pain controlled. Received 1 unit of PRBC. No fever or chills reported. - Objective Vital Signs & Weight: Vital Signs (12 hours) Temp Pulse Pulse Pulse Resp BP BP 10/03/20 15:40 98.6 F 92 20 106/63 10/03/20 15:25 98.5 F 92 14 10/03/20 12:36 98.7 F 94 20 119/70 10/03/20 12:21 99.5 F 93 20 98/57 L 10/03/20 11:55 97.9 F 100 16 10/03/20 09:06 80 96/66 BP Pulse Ox 10/03/20 15:40 99 10/03/20 15:25 108/52 L 92 L 10/03/20 12:36 100 10/03/20 12:21 97 10/03/20 11:55 112/61 92 L 10/03/20 09:06 Weight Admit Weight 220 lb 8 oz Weight 220 lb 8 oz I&O: 10/02/20 10/03/20 10/04/20 06:59 06:59 06:59 Intake Total 2355 1660 2730 Output Total 3000 850 650 Balance -968 237 2382 Result Diagrams: 10/03/20 05:35 10/03/20 05:35 Additional Labs: Accuchecks 10/03/20 10/03/20 10/03/20 15:05 11:36 02:55 POC Glucose 252 H 186 H 104 H 10/02/20 20:24 POC Glucose 88 Hospitalist ROS - Review of Systems Cardiovascular: denies: chest pain, palpitations, orthopnea, paroxysmal noc. dyspnea, edema, light headedness, other Gastrointestinal: denies: nausea, vomiting, abdominal pain, diarrhea, constipation, melena, hematochezia, other - Medication Medications: Active Medications Generic Name Dose Route Start Last Admin Trade Name Freq PRN Reason Stop Dose Admin Hydrocodone Bitart/Acetaminophen 1 tab 09/25/20 19:16 09/27/20 14:24 Hydrocodone/Acetaminophen 10/325 Mg Tablet PO 1 tab Q4H PRN Administration Moderate Pain (4-6) Hydrocodone Bitart/Acetaminophen 2 tab 09/25/20 19:16 10/03/20 01:00 Hydrocodone/Acetaminophen 10/325 Mg Tablet PO 2 tab Q4H PRN Administration Severe Pain (7-10) Acidophilus 1 tab 09/26/20 09:00 10/03/20 10:05 Lactinex Tablet PO 1 tab DAILY [place] Administration Aspirin 81 mg 09/25/20 21:00 10/03/20 10:05 Aspirin 81 Mg Enteric Coated Tablet PO 81 mg BID [place] Administration Calcitriol 0.25 mcg 09/26/20 08:00 10/02/20 10:24 Calcitriol 0.25 Mcg Cap PO Not Given Q2DAYS [place] Cyanocobalamin 2,500 mcg 09/26/20 09:00 10/03/20 10:04 Cyanocobalamin (Vitamin B-12) 1,000 Mcg Tab PO 2,500 mcg DAILY [place] Administration Fentanyl 50 mcg 09/25/20 19:16 10/02/20 17:51 Fentanyl 100 Mcg/2 Ml Vial SLOW IVP 50 mcg Q30MIN PRN Administration Moderate Pain (4-6) Ferrous Gluconate 324 mg 09/26/20 09:00 10/03/20 10:05 Ferrous Gluconate 324 Mg Tab PO 324 mg BID [place] Administration Insulin Glargine 75 units/ 0.75 mls @ 0 mls/hr 09/26/20 21:00 10/02/20 20:45 Miscellaneous Medication SC Not Given HS [place] As Directed Meropenem 1 gm/ Sodium 100 mls @ 200 mls/hr 10/02/20 10:00 10/03/20 18:27 Chloride IVPB 100 mls 0200,1000,1800 [place] Administration Sodium Chloride 1,000 mls @ 100 mls/hr 10/02/20 12:52 10/03/20 12:28 Normal Saline 0.9% IV Not Given .Q10H [place] Insulin Human Lispro 0 units 09/26/20 09:33 10/03/20 18:28 Humalog 300 Units/3 Ml Vial SC 6 unit .MODERATE SLIDING SC PRN Administration Moderate Correctional Scale Insulin Human Lispro 0 units 09/26/20 09:33 10/01/20 21:10 Humalog 300 Units/3 Ml Vial SC 3 unit .BEDTIME SLIDING SC PRN Administration Bedtime Correctional Scale Iron/Minerals/Multivitamins 1 tab 09/26/20 09:00 10/03/20 10:06 Multivitamin W/ Minerals 1 Tab PO 1 tab DAILY [place] Administration Magnesium Oxide 400 mg 09/26/20 09:00 10/03/20 10:05 Magnesium Oxide 400 Mg Tab PO 400 mg DAILY [place] Administration Metoprolol Succinate 50 mg 09/26/20 21:00 10/02/20 20:44 Metoprolol Succinate Xl 50 Mg Tab PO 50 mg QPM [place] Administration Ropinirole HCl 0.5 mg 09/26/20 21:00 10/02/20 20:44 Ropinirole Hcl 0.5 Mg Tab PO 0.5 mg QPM [place] Administration Rosuvastatin Calcium 10 mg 09/26/20 21:00 10/02/20 20:44 Rosuvastatin 10 Mg Tab PO 10 mg QPM [place] Administration Senna/Docusate Sodium 2 tab 09/26/20 09:00 10/03/20 10:05 Senokot S 8.6-50 Mg Tab PO 2 tab BID [place] Administration Tramadol HCl 100 mg 09/25/20 19:16 10/03/20 10:11 Tramadol Hcl 50 Mg Tab PO 100 mg Q6H PRN Administration Moderate Pain (4-6) - Exam General Appearance: NAD Heart: RRR, no gallops Respiratory: no wheezes, no ronchi Gastrointestinal: non-tender, normal bowel sounds Extremities: no cyanosis, no clubbing Hosp A/P - Plan DVT proph w/SCDs Diabetes mellitus type 2 Hypertension Hyperlipidemia Restless leg syndrome History of breast cancer Urinary retention requiring Prasad catheter Obstructive sleep apnea Morbid obesity with a BMI of 40.3 Chronic anemia suspected due to nutritional deficiency Plan: Continue antibiotics per ID. Continue current dose of Toprol-XL, Requip, Crestor and Lantus. Patient did not receive Lantus last night. We will continue sliding scale. Will consult case specialist for home health care set up. Patient will continue 1 g Invanz daily until November 07. After that she will require Bactrim double strength 1 tablet twice daily
[2020-10-03] MEDS: rOPINIRole HCl 0.5 MG TAB PO SCH (20:55)
[2020-10-03] MEDS: PRE FILLED SC SCH (20:55)
[2020-10-03] MEDS: INSULIN GLARGINE SC SCH (20:55)
[2020-10-03] MEDS: Rosuvastatin 10 MG TAB PO SCH (20:56)
[2020-10-04] MEDS: Meropenem 1 GM in Sodium Chloride 0.9% 100 ML IVPB SCH ×3 (02:26→18:12)
[2020-10-04] MEDS: Sodium Chloride 0.9% 1,000 ML IV SCH ×2 (05:10→11:26)
[2020-10-04 05:41] LABS: Hemoglobin 7.6 g/dL (12.0-16.0); Mean Corpuscular HGB CONC 32.7 g/dL (32.0-36.0); Mean Corpuscular Hemoglobin 30.6 pg (27.0-31.0); Mean Corpuscular Volume 93.5 fL (78.0-98.0); Mean Platelet Volume 7.7 fL (7.4-10.4); Platelet Count 269 thou/uL (130-400); RBC Distribution Width 15.8 % (11.5-14.5); Red Blood Cell (RBC) Count 2.48 mill/uL (4.20-5.40); White Blood Cell (WBC) Count 12.6 thou/uL (4.8-10.8)
[2020-10-04 06:05] LABS: ALT (SGPT) 30 U/L (8-55); AST (SGOT) 29 U/L (5-34); Albumin 2.6 g/dL (3.4-4.8); Alkaline Phosphatase 65 U/L (40-110); Anion Gap 12 mmol/L (10-20); BUN (Urea Nitrogen) 18 mg/dL (9.8-20.1); Bilirubin, Total 0.6 mg/dL (0.2-1.2); Calc. Creatinine Clearance 89 mL/min (70-130); Carbon Dioxide 29 mmol/L (23-31); Chloride 103 mmol/L (98-107); Globulin 2.8 g/dL (2.4-3.5); Glucose 172 mg/dL (83-110); Potassium 3.8 mmol/L (3.5-5.1); Protein, Total 5.4 g/dL (6.0-8.3); Sodium 140 mmol/L (136-145)
[2020-10-04] MEDS: Magnesium Oxide 400 MG TAB PO SCH (09:31)
[2020-10-04] MEDS: Cyanocobalamin (Vitamin B-12) 1,000 MCG TAB PO SCH (09:31)
[2020-10-04] MEDS: Lactinex Tablet PO SCH (09:31)
[2020-10-04] MEDS: Senokot S 8.6-50 MG TAB PO SCH ×2 (09:31→21:55)
[2020-10-04] MEDS: Multivitamin W/ Minerals 1 TAB PO SCH (09:31)
[2020-10-04] MEDS: Aspirin 81 mg Enteric Coated Tablet PO SCH ×2 (09:31→21:55)
[2020-10-04] MEDS: Calcitriol 0.25 MCG CAP PO SCH (09:31)
[2020-10-04] MEDS: Ferrous Gluconate 324 MG TAB PO SCH ×2 (09:31→21:56)
--- NOTE | 2020-10-04 15:48 | PQF ---
CLINICAL DOCUMENTATION CLARIFICATION FORM: Dear Dr. Luque Date: 10/04/2020 Please exercise your independent, professional judgment in responding to the clarification form. Clinical indicators are provided on the bottom of this form for your review Please check appropriate box(es): [ ] Acute blood loss anemia [ x ] Post-op anemia related to acute blood loss [ ] Chronic Anemia: [ ] Blood loss [ ] Other [ x] Anemia of Chronic Disease (please specify) [ ] Other diagnosis [ ] Unable to determine In addition, please specify: Present on Admission (POA): [ x] Yes [ ] No [ ] Unable to determine For continuity of documentation, please document condition throughout progress notes and discharge summary. Thank You. To be completed by CDI/Coding staff for physician review: CLINICAL INDICATORS - SIGNS / SYMPTOMS / LABS / RESULTS AND LOCATION IN EMR *09/30 pn (Bernard) Abn. lab results: 09/29 Hgb 8.1, Hct 25.1 A/P: Chronic anemia suspected due to nutritional deficiency *10/01 pn ([facility]bel) Sub: her H and H are drifted down to 7.2 and 22.8 Impression: Anemia secondary to blood loss and component of chronic disease *LAB (EMR) 10/02 10/03 10/04 Hemoglobin 9.9 7.7 7.6 Hematocrit 31.4 23.7 23.2 RISK FACTORS / RESULTS AND LOCATION IN EMR *09/26 Consult ([place]y) HPI: hx DM2, HTN, anemia and breast cancer. Impression: S/P I&D and washout of l total hip replacement arthroplasty. *10/01 pn (Rebel) Infected l total hip replacement *10/02 OP Note (Rebel) I&D l hip with total hip revision with antibiotic cement spacers. TREATMENTS / RESULTS AND LOCATION IN EMR *10/01 pn (Rebel): Plan: The pt will be transfused with 2 units of packed cells today *10/03 pn (Bernard) Sub: Received 1 unit PRBC Thank you, Cait Squires RN, BSN [email or web address] This is a permanent part of the Medical Record [facility]
[2020-10-04] MEDS: HumaLOG 300 UNITS/3 ML VIAL SC PRN ×2 (17:29→21:56)
--- NOTE | 2020-10-04 19:38 | PDOC.HOSPP ---
- Subjective Encounter Date: 10/04/20 Encounter Time: 13:30 Subjective: Patient seen and examined for medical management. Denies any chest pain, shortness of breath, fever, nausea or vomiting. Pain controlled. - Objective Vital Signs & Weight: Vital Signs (12 hours) Temp Pulse Pulse Resp BP BP Pulse Ox 10/04/20 16:47 98.1 F 92 18 124/71 96 10/04/20 13:53 98.2 F 89 20 147/84 H 94 L 10/04/20 12:00 95 10/04/20 11:36 98.1 F 84 20 127/69 95 10/04/20 11:13 98.3 F 89 20 96/45 L 94 L 10/04/20 10:41 98.6 F 89 16 118/68 95 10/04/20 08:56 98.4 F 88 16 108/66 96 10/04/20 08:00 96 Weight Admit Weight 220 lb 8 oz Weight 220 lb 8 oz I&O: 10/03/20 10/04/20 10/05/20 06:59 06:59 06:59 Intake Total 1660 2730 1555 Output Total 850 775 475 Balance 810 1955 1080 Result Diagrams: 10/04/20 05:13 10/04/20 05:13 Additional Labs: Accuchecks 10/04/20 10/04/20 10/04/20 16:47 10:41 06:10 POC Glucose 233 H 213 H 149 H 10/03/20 20:54 POC Glucose 315 H Hospitalist ROS - Review of Systems Respiratory: denies: cough, dry, shortness of breath, hemoptysis, SOB with excertion, pleuritic pain, sputum, wheezing, other Cardiovascular: denies: chest pain, palpitations, orthopnea, paroxysmal noc. dyspnea, edema, light headedness, other - Medication Medications: Active Medications Generic Name Dose Route Start Last Admin Trade Name Freq PRN Reason Stop Dose Admin Hydrocodone Bitart/Acetaminophen 1 tab 09/25/20 19:16 09/27/20 14:24 Hydrocodone/Acetaminophen 10/325 Mg Tablet PO 1 tab Q4H PRN Administration Moderate Pain (4-6) Hydrocodone Bitart/Acetaminophen 2 tab 09/25/20 19:16 10/03/20 01:00 Hydrocodone/Acetaminophen 10/325 Mg Tablet PO 2 tab Q4H PRN Administration Severe Pain (7-10) Acidophilus 1 tab 09/26/20 09:00 10/04/20 09:31 Lactinex Tablet PO 1 tab DAILY [place] Administration Aspirin 81 mg 09/25/20 21:00 10/04/20 09:31 Aspirin 81 Mg Enteric Coated Tablet PO 81 mg BID [place] Administration Calcitriol 0.25 mcg 09/26/20 08:00 10/04/20 09:31 Calcitriol 0.25 Mcg Cap PO 0.25 mcg Q2DAYS [place] Administration Cyanocobalamin 2,500 mcg 09/26/20 09:00 10/04/20 09:31 Cyanocobalamin (Vitamin B-12) 1,000 Mcg Tab PO 2,500 mcg DAILY [place] Administration Fentanyl 50 mcg 09/25/20 19:16 10/02/20 17:51 Fentanyl 100 Mcg/2 Ml Vial SLOW IVP 50 mcg Q30MIN PRN Administration Moderate Pain (4-6) Ferrous Gluconate 324 mg 09/26/20 09:00 10/04/20 09:31 Ferrous Gluconate 324 Mg Tab PO 324 mg BID [place] Administration Insulin Glargine 75 units/ 0.75 mls @ 0 mls/hr 09/26/20 21:00 10/03/20 20:55 Miscellaneous Medication SC 0.75 mls HS [place] Administration As Directed Meropenem 1 gm/ Sodium 100 mls @ 200 mls/hr 10/02/20 10:00 10/04/20 18:12 Chloride IVPB 100 mls 0200,1000,1800 [place] Administration Sodium Chloride 1,000 mls @ 100 mls/hr 10/02/20 12:52 10/04/20 11:26 Normal Saline 0.9% IV Not Given .Q10H [place] Insulin Human Lispro 0 units 09/26/20 09:33 10/04/20 17:29 Humalog 300 Units/3 Ml Vial SC 4 unit .MODERATE SLIDING SC PRN Administration Moderate Correctional Scale Insulin Human Lispro 0 units 09/26/20 09:33 10/03/20 20:56 Humalog 300 Units/3 Ml Vial SC 4 unit .BEDTIME SLIDING SC PRN Administration Bedtime Correctional Scale Iron/Minerals/Multivitamins 1 tab 09/26/20 09:00 10/04/20 09:31 Multivitamin W/ Minerals 1 Tab PO 1 tab DAILY [place] Administration Magnesium Oxide 400 mg 09/26/20 09:00 10/04/20 09:31 Magnesium Oxide 400 Mg Tab PO 400 mg DAILY [place] Administration Metoprolol Succinate 50 mg 09/26/20 21:00 10/03/20 20:56 Metoprolol Succinate Xl 50 Mg Tab PO 50 mg QPM [place] Administration Ropinirole HCl 0.5 mg 09/26/20 21:00 10/03/20 20:55 Ropinirole Hcl 0.5 Mg Tab PO 0.5 mg QPM [place] Administration Rosuvastatin Calcium 10 mg 09/26/20 21:00 10/03/20 20:56 Rosuvastatin 10 Mg Tab PO 10 mg QPM [place] Administration Senna/Docusate Sodium 2 tab 09/26/20 09:00 10/04/20 09:31 Senokot S 8.6-50 Mg Tab PO 2 tab BID [place] Administration Tramadol HCl 100 mg 09/25/20 19:16 10/03/20 10:11 Tramadol Hcl 50 Mg Tab PO 100 mg Q6H PRN Administration Moderate Pain (4-6) - Exam General Appearance: NAD Neck: supple, no JVD Heart: RRR, no gallops, no rubs Respiratory: no wheezes, no rales Gastrointestinal: soft, no guarding, no rigidity Extremities: no cyanosis Neurological: no new deficit Hosp A/P - Plan DVT proph w/SCDs (Thank) Diabetes mellitus type 2 Hypertension Hyperlipidemia Restless leg syndrome History of breast cancer Urinary retention requiring Prasad catheter Obstructive sleep apnea Morbid obesity with a BMI of 40.3 Chronic anemia suspected due to nutritional deficiency Plan: Continue supportive care. Continue current dose of Lantus with sliding scale. Continue Crestor with Toprol-XL. Will continue physical therapy. Home health care set up at discharge. Continue antibiotics per ID. Incentive spirometer. DVT prophylaxis. 10/03 Continue antibiotics per ID. Continue current dose of Toprol-XL, Requip, Crestor and Lantus. Patient did not receive Lantus last night. We will continue sliding scale. Will consult case finishing machine adjuster for home health care set up. Patient will continue 1 g Invanz daily until November 07. After that she will require Bactrim double strength 1 tablet twice daily
[2020-10-04] MEDS: Rosuvastatin 10 MG TAB PO SCH (21:55)
[2020-10-04] MEDS: rOPINIRole HCl 0.5 MG TAB PO SCH (21:55)
[2020-10-04] MEDS: PRE FILLED SC SCH (21:56)
[2020-10-04] MEDS: INSULIN GLARGINE SC SCH (21:56)
[2020-10-05] MEDS: Sodium Chloride 0.9% 1,000 ML IV SCH ×2 (02:10→09:50)
[2020-10-05] MEDS: Meropenem 1 GM in Sodium Chloride 0.9% 100 ML IVPB SCH ×3 (02:39→17:50)
[2020-10-05 06:08] LABS: Hemoglobin 8.7 g/dL (12.0-16.0); Mean Corpuscular HGB CONC 31.9 g/dL (32.0-36.0); Mean Corpuscular Hemoglobin 30.6 pg (27.0-31.0); Mean Corpuscular Volume 95.8 fL (78.0-98.0); Mean Platelet Volume 8.2 fL (7.4-10.4); Platelet Count 259 thou/uL (130-400); Red Blood Cell (RBC) Count 2.84 mill/uL (4.20-5.40); White Blood Cell (WBC) Count 11.9 thou/uL (4.8-10.8)
[2020-10-05 06:19] LABS: ALT (SGPT) 41 U/L (8-55); AST (SGOT) 73 U/L (5-34); Albumin 2.6 g/dL (3.4-4.8); Alkaline Phosphatase 63 U/L (40-110); Anion Gap 10 mmol/L (10-20); BUN (Urea Nitrogen) 19 mg/dL (9.8-20.1); Bilirubin, Total 0.6 mg/dL (0.2-1.2); Calc. Creatinine Clearance 94 mL/min (70-130); Calcium 8.4 mg/dL (7.8-10.44); Carbon Dioxide 32 mmol/L (23-31); Chloride 101 mmol/L (98-107); Glucose 97 mg/dL (83-110); Potassium 3.5 mmol/L (3.5-5.1); Protein, Total 5.6 g/dL (6.0-8.3); Sodium 139 mmol/L (136-145)
[2020-10-05] MEDS ORDERED: Potassium Chloride 20 MEQ TAB PO SCH (07:15)
[2020-10-05] MEDS: Lactinex Tablet PO SCH (09:47)
[2020-10-05] MEDS: Senokot S 8.6-50 MG TAB PO SCH ×2 (09:47→21:47)
[2020-10-05] MEDS: Cyanocobalamin (Vitamin B-12) 1,000 MCG TAB PO SCH (09:47)
[2020-10-05] MEDS: Ferrous Gluconate 324 MG TAB PO SCH ×2 (09:48→21:46)
[2020-10-05] MEDS: Magnesium Oxide 400 MG TAB PO SCH (09:48)
[2020-10-05] MEDS: Aspirin 81 mg Enteric Coated Tablet PO SCH ×2 (09:48→21:46)
[2020-10-05] MEDS: Multivitamin W/ Minerals 1 TAB PO SCH (09:48)
--- NOTE | 2020-10-05 17:22 | PDOC.HOSPP ---
- Subjective Encounter Date: 10/05/20 Encounter Time: 11:30 Subjective: Patient seen and examined for medical management. Prasad catheter removed. Pain controlled. Denies any fever or chills. No chest pain, shortness of breath or palpitations. - Objective Vital Signs & Weight: Vital Signs (12 hours) Temp Pulse Resp BP Pulse Ox 10/05/20 16:23 97.7 F 75 14 130/56 L 96 10/05/20 12:00 98.5 F 80 14 141/74 H 95 10/05/20 08:40 97.8 F 74 16 136/76 98 10/05/20 08:00 98 Weight Admit Weight 220 lb 8 oz Weight 220 lb 8 oz I&O: 10/04/20 10/05/20 10/06/20 06:59 06:59 06:59 Intake Total 2730 1555 Output Total 775 1225 Balance 1955 330 Result Diagrams: 10/05/20 05:42 10/05/20 05:42 Additional Labs: Accuchecks 10/05/20 10/05/20 10/05/20 15:15 10:42 05:28 POC Glucose 138 H 150 H 87 10/04/20 20:43 POC Glucose 210 H Abnormal Lab Results - Last 48 hrs 10/01/20 11:29: Crossmatch See Detail 10/04/20 05:13: Serum Total Protein 5.4 L, Albumin 2.6 L, Albumin/Globulin Ratio 0.9 L 10/04/20 05:13: WBC 12.6 H, RBC 2.48 L, Hgb 7.6 L, Hct 23.2 L, RDW 15.8 H 10/05/20 05:42: Carbon Dioxide 32 H, AST 73 H, Serum Total Protein 5.6 L, Albumin 2.6 L, Albumin/Globulin Ratio 0.9 L 10/05/20 05:42: WBC 11.9 H, RBC 2.84 L, Hgb 8.7 L, Hct 27.2 L, MCHC 31.9 L, RDW 15.0 H Microbiology - Entire Visit 10/02/20 08:06 Hip - Swab Bacterial Culture - Preliminary Escherichia coli 10/02/20 08:06 Hip - Swab Anaerobic Culture - Preliminary 10/02/20 08:10 Hip - Swab Bacterial Culture - Preliminary Escherichia coli 10/02/20 08:10 Hip - Swab Anaerobic Culture - Preliminary 09/27/20 18:35 Urine Straight Catheter Urine Culture - Final NO GROWTH AT 48 HOURS 09/25/20 17:08 Hip - Left Bacterial Culture - Final Klebsiella pneumoniae ssp pneu Escherichia coli 09/25/20 17:08 Hip - Left Anaerobic Culture - Final 09/25/20 17:09 Joint - Left Bacterial Culture - Final Escherichia coli Klebsiella pneumoniae ssp pneu 09/25/20 17:09 Joint - Left Anaerobic Culture - Final Hospitalist ROS - Review of Systems Cardiovascular: denies: chest pain, palpitations, orthopnea, paroxysmal noc. dyspnea, edema, light headedness, other Gastrointestinal: denies: nausea, vomiting, abdominal pain, diarrhea, constipation, melena, hematochezia, other - Medication Medications: Active Medications Generic Name Dose Route Start Last Admin Trade Name Freq PRN Reason Stop Dose Admin Hydrocodone Bitart/Acetaminophen 1 tab 09/25/20 19:16 09/27/20 14:24 Hydrocodone/Acetaminophen 10/325 Mg Tablet PO 1 tab Q4H PRN Administration Moderate Pain (4-6) Hydrocodone Bitart/Acetaminophen 2 tab 09/25/20 19:16 10/03/20 01:00 Hydrocodone/Acetaminophen 10/325 Mg Tablet PO 2 tab Q4H PRN Administration Severe Pain (7-10) Acidophilus 1 tab 09/26/20 09:00 10/05/20 09:47 Lactinex Tablet PO 1 tab DAILY [place] Administration Aspirin 81 mg 09/25/20 21:00 10/05/20 09:48 Aspirin 81 Mg Enteric Coated Tablet PO 81 mg BID [place] Administration Calcitriol 0.25 mcg 09/26/20 08:00 10/04/20 09:31 Calcitriol 0.25 Mcg Cap PO 0.25 mcg Q2DAYS [place] Administration Cyanocobalamin 2,500 mcg 09/26/20 09:00 10/05/20 09:47 Cyanocobalamin (Vitamin B-12) 1,000 Mcg Tab PO 2,500 mcg DAILY [place] Administration Fentanyl 50 mcg 09/25/20 19:16 10/02/20 17:51 Fentanyl 100 Mcg/2 Ml Vial SLOW IVP 50 mcg Q30MIN PRN Administration Moderate Pain (4-6) Ferrous Gluconate 324 mg 09/26/20 09:00 10/05/20 09:48 Ferrous Gluconate 324 Mg Tab PO 324 mg BID [place] Administration Insulin Glargine 75 units/ 0.75 mls @ 0 mls/hr 09/26/20 21:00 10/04/20 21:56 Miscellaneous Medication SC 0.75 mls HS [place] Administration As Directed Meropenem 1 gm/ Sodium 100 mls @ 200 mls/hr 10/02/20 10:00 10/05/20 09:48 Chloride IVPB 100 mls 0200,1000,1800 [place] Administration Sodium Chloride 1,000 mls @ 100 mls/hr 10/02/20 12:52 10/05/20 09:50 Normal Saline 0.9% IV Not Given .Q10H [place] Insulin Human Lispro 0 units 09/26/20 09:33 10/04/20 17:29 Humalog 300 Units/3 Ml Vial SC 4 unit .MODERATE SLIDING SC PRN Administration Moderate Correctional Scale Insulin Human Lispro 0 units 09/26/20 09:33 10/04/20 21:56 Humalog 300 Units/3 Ml Vial SC 2 unit .BEDTIME SLIDING SC PRN Administration Bedtime Correctional Scale Iron/Minerals/Multivitamins 1 tab 09/26/20 09:00 10/05/20 09:48 Multivitamin W/ Minerals 1 Tab PO 1 tab DAILY [place] Administration Magnesium Oxide 400 mg 09/26/20 09:00 10/05/20 09:48 Magnesium Oxide 400 Mg Tab PO 400 mg DAILY [place] Administration Metoprolol Succinate 50 mg 09/26/20 21:00 10/04/20 21:56 Metoprolol Succinate Xl 50 Mg Tab PO 50 mg QPM [place] Administration Ropinirole HCl 0.5 mg 09/26/20 21:00 10/04/20 21:55 Ropinirole Hcl 0.5 Mg Tab PO 0.5 mg QPM [place] Administration Rosuvastatin Calcium 10 mg 09/26/20 21:00 10/04/20 21:55 Rosuvastatin 10 Mg Tab PO 10 mg QPM [place] Administration Senna/Docusate Sodium 2 tab 09/26/20 09:00 10/05/20 09:47 Senokot S 8.6-50 Mg Tab PO 2 tab BID [place] Administration Tramadol HCl 100 mg 09/25/20 19:16 10/03/20 10:11 Tramadol Hcl 50 Mg Tab PO 100 mg Q6H PRN Administration Moderate Pain (4-6) - Exam General Appearance: NAD Neck: supple, no JVD Heart: RRR, no gallops Respiratory: no wheezes, no ronchi Gastrointestinal: soft, non-tender, normal bowel sounds Extremities: no cyanosis, no clubbing Neurological: no new deficit Hosp A/P - Plan DVT proph w/SCDs Diabetes mellitus type 2 Hypertension Hyperlipidemia Hypokalemia Restless leg syndrome History of breast cancer Urinary retention requiring Prasad catheterFoley catheter removed on 10/04 Obstructive sleep apneaon CPAP Morbid obesity with a BMI of 40.3 Chronic anemia suspected due to nutritional deficiency Plan: Continue Lantus 75 units with sliding scale. Replace potassium. Continue IV meropenem per infectious disease. Continue Toprol-XL, Requip and Crestor. Pain control. Continue bowel regimen. 10/04 Continue supportive care. Continue current dose of Lantus with sliding scale. Continue Crestor with Toprol-XL. Will continue physical therapy. Home health care set up at discharge. Continue antibiotics per ID. Incentive spirometer. DVT prophylaxis. 10/03 Continue antibiotics per ID. Continue current dose of Toprol-XL, Requip, Crestor and Lantus. Patient did not receive Lantus last night. We will continue sliding scale. Will consult nurse outreach case manager for home health care set up. Patient will continue 1 g Invanz daily until November 07. After that she will require Bactrim double strength 1 tablet twice daily
[2020-10-05] MEDS: INSULIN GLARGINE SC SCH (21:45)
[2020-10-05] MEDS: PRE FILLED SC SCH (21:45)
[2020-10-05] MEDS: rOPINIRole HCl 0.5 MG TAB PO SCH (21:46)
[2020-10-05] MEDS: Rosuvastatin 10 MG TAB PO SCH (21:46)
[2020-10-06] MEDS: Meropenem 1 GM in Sodium Chloride 0.9% 100 ML IVPB SCH ×3 (02:59→17:16)
[2020-10-06] MEDS: Aspirin 81 mg Enteric Coated Tablet PO SCH ×2 (09:07→21:25)
[2020-10-06] MEDS: Lactinex Tablet PO SCH (09:07)
[2020-10-06] MEDS: Multivitamin W/ Minerals 1 TAB PO SCH (09:07)
[2020-10-06] MEDS: Magnesium Oxide 400 MG TAB PO SCH (09:07)
[2020-10-06] MEDS: Ferrous Gluconate 324 MG TAB PO SCH ×2 (09:07→21:26)
[2020-10-06] MEDS: Calcitriol 0.25 MCG CAP PO SCH (09:07)
[2020-10-06] MEDS: Senokot S 8.6-50 MG TAB PO SCH ×2 (09:09→21:26)
[2020-10-06] MEDS: Cyanocobalamin (Vitamin B-12) 1,000 MCG TAB PO SCH (09:09)
--- NOTE | 2020-10-06 16:11 | PDOC.HOSPP ---
- Subjective Encounter Date: 10/06/20 Encounter Time: 11:30 Subjective: Patient seen and examined for medical management. Denies any new complaints. Denies any nausea, abdominal pain or fever. No chest pain or shortness of breath. - Objective Vital Signs & Weight: Vital Signs (12 hours) Temp Pulse Resp BP Pulse Ox 10/06/20 11:43 98.4 F 73 110/65 98 10/06/20 08:02 98.5 F 72 18 124/48 L 99 10/06/20 08:00 99 Weight Admit Weight 220 lb 8 oz Weight 220 lb 8 oz I&O: 10/05/20 10/06/20 10/07/20 06:59 06:59 06:59 Intake Total 1555 1860 Output Total 1225 300 Balance 330 1560 Result Diagrams: 10/05/20 05:42 10/05/20 05:42 Additional Labs: Accuchecks 10/06/20 10/06/20 10/06/20 15:57 11:46 05:30 POC Glucose 138 H 101 H 68 L 10/06/20 10/05/20 05:15 21:05 POC Glucose 62 L 172 H Hospitalist ROS - Review of Systems Respiratory: denies: cough, dry, shortness of breath, hemoptysis, SOB with excertion, pleuritic pain, sputum, wheezing, other Cardiovascular: denies: chest pain, palpitations, orthopnea, paroxysmal noc. dyspnea, edema, light headedness, other - Medication Medications: Active Medications Generic Name Dose Route Start Last Admin Trade Name Freq PRN Reason Stop Dose Admin Hydrocodone Bitart/Acetaminophen 1 tab 09/25/20 19:16 09/27/20 14:24 Hydrocodone/Acetaminophen 10/325 Mg Tablet PO 1 tab Q4H PRN Administration Moderate Pain (4-6) Hydrocodone Bitart/Acetaminophen 2 tab 09/25/20 19:16 10/03/20 01:00 Hydrocodone/Acetaminophen 10/325 Mg Tablet PO 2 tab Q4H PRN Administration Severe Pain (7-10) Acidophilus 1 tab 09/26/20 09:00 10/06/20 09:07 Lactinex Tablet PO 1 tab DAILY [place] Administration Aspirin 81 mg 09/25/20 21:00 10/06/20 09:07 Aspirin 81 Mg Enteric Coated Tablet PO 81 mg BID [place] Administration Calcitriol 0.25 mcg 09/26/20 08:00 10/06/20 09:07 Calcitriol 0.25 Mcg Cap PO 0.25 mcg Q2DAYS [place] Administration Cyanocobalamin 2,500 mcg 09/26/20 09:00 10/06/20 09:09 Cyanocobalamin (Vitamin B-12) 1,000 Mcg Tab PO 2,500 mcg DAILY [place] Administration Fentanyl 50 mcg 09/25/20 19:16 10/02/20 17:51 Fentanyl 100 Mcg/2 Ml Vial SLOW IVP 50 mcg Q30MIN PRN Administration Moderate Pain (4-6) Ferrous Gluconate 324 mg 09/26/20 09:00 10/06/20 09:07 Ferrous Gluconate 324 Mg Tab PO 324 mg BID [place] Administration Meropenem 1 gm/ Sodium 100 mls @ 200 mls/hr 10/02/20 10:00 10/06/20 09:08 Chloride IVPB 100 mls 0200,1000,1800 [place] Administration Insulin Human Lispro 0 units 09/26/20 09:33 10/04/20 17:29 Humalog 300 Units/3 Ml Vial SC 4 unit .MODERATE SLIDING SC PRN Administration Moderate Correctional Scale Insulin Human Lispro 0 units 09/26/20 09:33 10/04/20 21:56 Humalog 300 Units/3 Ml Vial SC 2 unit .BEDTIME SLIDING SC PRN Administration Bedtime Correctional Scale Iron/Minerals/Multivitamins 1 tab 09/26/20 09:00 10/06/20 09:07 Multivitamin W/ Minerals 1 Tab PO 1 tab DAILY [place] Administration Magnesium Oxide 400 mg 09/26/20 09:00 10/06/20 09:07 Magnesium Oxide 400 Mg Tab PO 400 mg DAILY [place] Administration Metoprolol Succinate 50 mg 09/26/20 21:00 10/05/20 21:46 Metoprolol Succinate Xl 50 Mg Tab PO 50 mg QPM [place] Administration Ropinirole HCl 0.5 mg 09/26/20 21:00 10/05/20 21:46 Ropinirole Hcl 0.5 Mg Tab PO 0.5 mg QPM [place] Administration Rosuvastatin Calcium 10 mg 09/26/20 21:00 10/05/20 21:46 Rosuvastatin 10 Mg Tab PO 10 mg QPM [place] Administration Senna/Docusate Sodium 2 tab 09/26/20 09:00 10/06/20 09:09 Senokot S 8.6-50 Mg Tab PO Not Given BID [place] Tramadol HCl 100 mg 09/25/20 19:16 10/03/20 10:11 Tramadol Hcl 50 Mg Tab PO 100 mg Q6H PRN Administration Moderate Pain (4-6) - Exam General Appearance: NAD Neck: supple, no JVD Heart: RRR, no gallops Respiratory: no wheezes, no ronchi Gastrointestinal: non-tender, non-distended, no guarding, no rigidity Extremities: no cyanosis, no clubbing Neurological: no new deficit Hosp A/P - Plan DVT proph w/SCDs Diabetes mellitus type 2 Hypertension Hyperlipidemia Hypokalemia Restless leg syndrome History of breast cancer Urinary retention requiring Prasad catheterFoley catheter removed on 10/04 Obstructive sleep apneaon CPAP Morbid obesity with a BMI of 40.3 Chronic anemia suspected due to nutritional deficiency Plan: Reduce Lantus to 60 units nightly. Continue aspirin for DVT prophylaxis per pro tocol. Continue Toprol-XL, Crestor and bowel regimen. Continue sliding scale. Continue postoperative care. Continue physical therapy and incentive spirometry 10/05 Continue Lantus 75 units with sliding scale. Replace potassium. Continue IV meropenem per infectious disease. Continue Toprol-XL, Requip and Crestor. Pain control. Continue bowel regimen. 10/04 Continue supportive care. Continue current dose of Lantus with sliding scale. Continue Crestor with Toprol-XL. Will continue physical therapy. Home health care set up at discharge. Continue antibiotics per ID. Incentive spirometer. DVT prophylaxis. 10/03 Continue antibiotics per ID. Continue current dose of Toprol-XL, Requip, Crestor and Lantus. Patient did not receive Lantus last night. We will continue sliding scale. Will consult patient case manager for home health care set up. Patient will continue 1 g Invanz daily until November 07. After that she will require Bactrim double strength 1 tablet twice daily
[2020-10-06] MEDS: Rosuvastatin 10 MG TAB PO SCH (21:25)
[2020-10-06] MEDS: rOPINIRole HCl 0.5 MG TAB PO SCH (21:25)
[2020-10-06] MEDS: Insulin Glargine 60 UNITS in Pre-Filled Syringe 1 EACH SC SCH (21:26)
[2020-10-07] MEDS: Meropenem 1 GM in Sodium Chloride 0.9% 100 ML IVPB SCH ×3 (02:24→18:28)
[2020-10-07] MEDS: Ferrous Gluconate 324 MG TAB PO SCH ×2 (09:17→21:07)
[2020-10-07] MEDS: Aspirin 81 mg Enteric Coated Tablet PO SCH ×2 (09:17→21:07)
[2020-10-07] MEDS: Magnesium Oxide 400 MG TAB PO SCH (09:17)
[2020-10-07] MEDS: Lactinex Tablet PO SCH (09:17)
[2020-10-07] MEDS: Senokot S 8.6-50 MG TAB PO SCH ×2 (09:17→21:07)
[2020-10-07] MEDS: Multivitamin W/ Minerals 1 TAB PO SCH (09:17)
[2020-10-07] MEDS: Cyanocobalamin (Vitamin B-12) 1,000 MCG TAB PO SCH (09:18)
[2020-10-07] MEDS: HumaLOG 300 UNITS/3 ML VIAL SC PRN (19:30)
[2020-10-07] MEDS: Insulin Glargine 60 UNITS in Pre-Filled Syringe 1 EACH SC SCH (21:06)
[2020-10-07] MEDS: rOPINIRole HCl 0.5 MG TAB PO SCH (21:06)
[2020-10-07] MEDS: Rosuvastatin 10 MG TAB PO SCH (21:06)
--- NOTE | 2020-10-07 22:53 | PDOC.HOSPP ---
- Subjective Encounter Date: 10/07/20 Encounter Time: 11:30 Subjective: Patient seen and examined for medical management. Denies any new complaints. Pain control. No fever or chills - Objective Vital Signs & Weight: Vital Signs (12 hours) Temp Pulse Resp BP Pulse Ox 10/07/20 20:57 98.9 F 75 18 106/66 94 L 10/07/20 20:50 94 L 10/07/20 15:22 98.8 F 84 16 125/76 96 Weight Admit Weight 220 lb 8 oz Weight 220 lb 8 oz I&O: 10/06/20 10/07/20 10/08/20 06:59 06:59 06:59 Intake Total 1860 1940 1300 Output Total 300 Balance 1560 1940 1300 Result Diagrams: 10/05/20 05:42 10/05/20 05:42 Additional Labs: Accuchecks 10/07/20 10/07/20 10/07/20 21:01 15:28 10:22 POC Glucose 199 H 192 H 125 H 10/07/20 05:13 POC Glucose 101 H Hospitalist ROS - Review of Systems Respiratory: denies: cough, dry, shortness of breath, hemoptysis, SOB with excertion, pleuritic pain, sputum, wheezing, other Cardiovascular: denies: chest pain, palpitations, orthopnea, paroxysmal noc. dyspnea, edema, light headedness, other - Medication Medications: Active Medications Generic Name Dose Route Start Last Admin Trade Name Freq PRN Reason Stop Dose Admin Hydrocodone Bitart/Acetaminophen 1 tab 09/25/20 19:16 09/27/20 14:24 Hydrocodone/Acetaminophen 10/325 Mg Tablet PO 1 tab Q4H PRN Administration Moderate Pain (4-6) Hydrocodone Bitart/Acetaminophen 2 tab 09/25/20 19:16 10/03/20 01:00 Hydrocodone/Acetaminophen 10/325 Mg Tablet PO 2 tab Q4H PRN Administration Severe Pain (7-10) Acidophilus 1 tab 09/26/20 09:00 10/07/20 09:17 Lactinex Tablet PO 1 tab DAILY [place] Administration Aspirin 81 mg 09/25/20 21:00 10/07/20 21:07 Aspirin 81 Mg Enteric Coated Tablet PO 81 mg BID [place] Administration Calcitriol 0.25 mcg 09/26/20 08:00 10/06/20 09:07 Calcitriol 0.25 Mcg Cap PO 0.25 mcg Q2DAYS [place] Administration Cyanocobalamin 2,500 mcg 09/26/20 09:00 10/07/20 09:18 Cyanocobalamin (Vitamin B-12) 1,000 Mcg Tab PO 2,500 mcg DAILY [place] Administration Fentanyl 50 mcg 09/25/20 19:16 10/02/20 17:51 Fentanyl 100 Mcg/2 Ml Vial SLOW IVP 50 mcg Q30MIN PRN Administration Moderate Pain (4-6) Ferrous Gluconate 324 mg 09/26/20 09:00 10/07/20 21:07 Ferrous Gluconate 324 Mg Tab PO 324 mg BID [place] Administration Meropenem 1 gm/ Sodium 100 mls @ 200 mls/hr 10/02/20 10:00 10/07/20 18:28 Chloride IVPB 100 mls 0200,1000,1800 [place] Administration Insulin Glargine 60 units/ 0.6 mls @ 0 mls/hr 10/06/20 21:00 10/07/20 21:06 Miscellaneous Medication SC 0.6 mls HS [place] Administration Insulin Human Lispro 0 units 09/26/20 09:33 10/07/20 19:30 Humalog 300 Units/3 Ml Vial SC 2 unit .MODERATE SLIDING SC PRN Administration Moderate Correctional Scale Insulin Human Lispro 0 units 09/26/20 09:33 10/04/20 21:56 Humalog 300 Units/3 Ml Vial SC 2 unit .BEDTIME SLIDING SC PRN Administration Bedtime Correctional Scale Iron/Minerals/Multivitamins 1 tab 09/26/20 09:00 10/07/20 09:17 Multivitamin W/ Minerals 1 Tab PO 1 tab DAILY [place] Administration Magnesium Oxide 400 mg 09/26/20 09:00 10/07/20 09:17 Magnesium Oxide 400 Mg Tab PO 400 mg DAILY [place] Administration Metoprolol Succinate 50 mg 09/26/20 21:00 10/07/20 21:06 Metoprolol Succinate Xl 50 Mg Tab PO 50 mg QPM [place] Administration Ropinirole HCl 0.5 mg 09/26/20 21:00 10/07/20 21:06 Ropinirole Hcl 0.5 Mg Tab PO 0.5 mg QPM [place] Administration Rosuvastatin Calcium 10 mg 09/26/20 21:00 10/07/20 21:06 Rosuvastatin 10 Mg Tab PO 10 mg QPM [place] Administration Senna/Docusate Sodium 2 tab 09/26/20 09:00 10/07/20 21:07 Senokot S 8.6-50 Mg Tab PO 2 tab BID [place] Administration Tramadol HCl 100 mg 09/25/20 19:16 10/03/20 10:11 Tramadol Hcl 50 Mg Tab PO 100 mg Q6H PRN Administration Moderate Pain (4-6) - Exam General Appearance: NAD Neck: supple, no JVD Heart: no gallops, no rubs Respiratory: no wheezes, no rales Gastrointestinal: non-tender, non-distended Hosp A/P - Plan DVT proph w/SCDs Diabetes mellitus type 2 Hypertension Hyperlipidemia Hypokalemia Restless leg syndrome History of breast cancer Urinary retention requiring Prasad catheterFoley catheter removed on 10/04 Obstructive sleep apneaon CPAP Morbid obesity with a BMI of 40.3 Chronic anemia suspected due to nutritional deficiency Plan: Continue Lantus 60 units qhs. Continue Crestor, Toprol-XL, sliding scale and other supportive care. Home health care set up. Discharge planning. 10/06 Reduce Lantus to 60 units nightly. Continue aspirin for DVT prophylaxis per protocol. Continue Toprol-XL, Crestor and bowel regimen. Continue sliding scale. Continue postoperative care. Continue physical therapy and incentive spirometry 10/05 Continue Lantus 75 units with sliding scale. Replace potassium. Continue IV meropenem per infectious disease. Continue Toprol-XL, Requip and Crestor. Pain control. Continue bowel regimen. 10/04 Continue supportive care. Continue current dose of Lantus with sliding scale. Continue Crestor with Toprol-XL. Will continue physical therapy. Home health care set up at discharge. Continue antibiotics per ID. Incentive spirometer. DVT prophylaxis. 10/03 Continue antibiotics per ID. Continue current dose of Toprol-XL, Requip, Crestor and Lantus. Patient did not receive Lantus last night. We will continue sliding scale. Will consult casey saw operator for home health care set up. Patient will continue 1 g Invanz daily until November 07. After that she will require Bactrim double strength 1 tablet twice daily
[2020-10-08] MEDS: Meropenem 1 GM in Sodium Chloride 0.9% 100 ML IVPB SCH ×3 (02:59→17:30)
[2020-10-08 06:05] LABS: #Eosinphils 0.7 thou/uL (0.0-0.7); #Monocytes 1.1 thou/uL (0.11-0.59); %Basophils 0.4 % (0.0-1.0); %Eosinophils 5.4 % (0.0-10.0); %Lymphocytes 23.4 % (21.0-51.0); %Monocytes 8.8 % (0.0-10.0); Hemoglobin 8.6 g/dL (12.0-16.0); Mean Corpuscular HGB CONC 32.5 g/dL (32.0-36.0); Mean Corpuscular Hemoglobin 31.3 pg (27.0-31.0); Mean Corpuscular Volume 96.3 fL (78.0-98.0); Platelet Count 363 thou/uL (130-400); RBC Distribution Width 15.4 % (11.5-14.5); Red Blood Cell (RBC) Count 2.76 mill/uL (4.20-5.40); White Blood Cell (WBC) Count 12.8 thou/uL (4.8-10.8)
[2020-10-08 06:28] LABS: ALT (SGPT) 52 U/L (8-55); AST (SGOT) 65 U/L (5-34); Albumin 2.9 g/dL (3.4-4.8); Alkaline Phosphatase 69 U/L (40-110); Anion Gap 13 mmol/L (10-20); BUN (Urea Nitrogen) 25 mg/dL (9.8-20.1); Bilirubin, Total 0.6 mg/dL (0.2-1.2); Calc. Creatinine Clearance 73 mL/min (70-130); Calcium 8.5 mg/dL (7.8-10.44); Carbon Dioxide 30 mmol/L (23-31); Chloride 103 mmol/L (98-107); Globulin 3.2 g/dL (2.4-3.5); Glucose 146 mg/dL (83-110); Potassium 4.2 mmol/L (3.5-5.1); Protein, Total 6.1 g/dL (6.0-8.3); Sodium 142 mmol/L (136-145)
[2020-10-08] MEDS: Lactinex Tablet PO SCH (09:06)
[2020-10-08] MEDS: Ferrous Gluconate 324 MG TAB PO SCH ×2 (09:06→20:23)
[2020-10-08] MEDS: Magnesium Oxide 400 MG TAB PO SCH (09:06)
[2020-10-08] MEDS: Senokot S 8.6-50 MG TAB PO SCH ×2 (09:06→20:23)
[2020-10-08] MEDS: Calcitriol 0.25 MCG CAP PO SCH (09:07)
[2020-10-08] MEDS: Cyanocobalamin (Vitamin B-12) 1,000 MCG TAB PO SCH (09:07)
[2020-10-08] MEDS: Aspirin 81 mg Enteric Coated Tablet PO SCH ×2 (09:07→20:23)
[2020-10-08] MEDS: Multivitamin W/ Minerals 1 TAB PO SCH (09:07)
--- NOTE | 2020-10-08 12:50 | PDOC.HOSPP ---
- Subjective Encounter Date: 10/08/20 Subjective: No new complaints. - Objective Vital Signs & Weight: Vital Signs (12 hours) Temp Pulse Resp BP BP Pulse Ox 10/08/20 12:11 98.0 F 78 18 103/60 95 10/08/20 08:22 98.3 F 67 16 125/74 99 10/08/20 03:09 98.7 F 75 18 111/65 98 Weight Admit Weight 220 lb 8 oz Weight 220 lb 8 oz I&O: 10/07/20 10/08/20 10/09/20 06:59 06:59 06:59 Intake Total 1939 2239 Balance 1939 2239 Result Diagrams: 10/08/20 05:53 10/08/20 05:53 Additional Labs: Accuchecks 10/08/20 10/08/20 10/07/20 12:12 05:48 21:01 POC Glucose 184 H 133 H 199 H 10/07/20 15:28 POC Glucose 192 H Hospitalist ROS - Medication Medications: Active Medications Generic Name Dose Route Start Last Admin Trade Name Freq PRN Reason Stop Dose Admin Hydrocodone Bitart/Acetaminophen 1 tab 09/25/20 19:16 09/27/20 14:24 Hydrocodone/Acetaminophen 10/325 Mg Tablet PO 1 tab Q4H PRN Administration Moderate Pain (4-6) Hydrocodone Bitart/Acetaminophen 2 tab 09/25/20 19:16 10/03/20 01:00 Hydrocodone/Acetaminophen 10/325 Mg Tablet PO 2 tab Q4H PRN Administration Severe Pain (7-10) Acidophilus 1 tab 09/26/20 09:00 10/08/20 09:06 Lactinex Tablet PO 1 tab DAILY [place] Administration Aspirin 81 mg 09/25/20 21:00 10/08/20 09:07 Aspirin 81 Mg Enteric Coated Tablet PO 81 mg BID [place] Administration Calcitriol 0.25 mcg 09/26/20 08:00 10/08/20 09:07 Calcitriol 0.25 Mcg Cap PO 0.25 mcg Q2DAYS [place] Administration Cyanocobalamin 2,500 mcg 09/26/20 09:00 10/08/20 09:07 Cyanocobalamin (Vitamin B-12) 1,000 Mcg Tab PO 2,500 mcg DAILY [place] Administration Fentanyl 50 mcg 09/25/20 19:16 10/02/20 17:51 Fentanyl 100 Mcg/2 Ml Vial SLOW IVP 50 mcg Q30MIN PRN Administration Moderate Pain (4-6) Ferrous Gluconate 324 mg 09/26/20 09:00 10/08/20 09:06 Ferrous Gluconate 324 Mg Tab PO 324 mg BID [place] Administration Meropenem 1 gm/ Sodium 100 mls @ 200 mls/hr 10/02/20 10:00 10/08/20 09:06 Chloride IVPB 100 mls 0200,1000,1800 [place] Administration Insulin Glargine 60 units/ 0.6 mls @ 0 mls/hr 10/06/20 21:00 10/07/20 21:06 Miscellaneous Medication SC 0.6 mls HS [place] Administration Insulin Human Lispro 0 units 09/26/20 09:33 10/07/20 19:30 Humalog 300 Units/3 Ml Vial SC 2 unit .MODERATE SLIDING SC PRN Administration Moderate Correctional Scale Insulin Human Lispro 0 units 09/26/20 09:33 10/04/20 21:56 Humalog 300 Units/3 Ml Vial SC 2 unit .BEDTIME SLIDING SC PRN Administration Bedtime Correctional Scale Iron/Minerals/Multivitamins 1 tab 09/26/20 09:00 10/08/20 09:07 Multivitamin W/ Minerals 1 Tab PO 1 tab DAILY [place] Administration Magnesium Oxide 400 mg 09/26/20 09:00 10/08/20 09:06 Magnesium Oxide 400 Mg Tab PO 400 mg DAILY [place] Administration Metoprolol Succinate 50 mg 09/26/20 21:00 10/07/20 21:06 Metoprolol Succinate Xl 50 Mg Tab PO 50 mg QPM [place] Administration Ropinirole HCl 0.5 mg 09/26/20 21:00 10/07/20 21:06 Ropinirole Hcl 0.5 Mg Tab PO 0.5 mg QPM [place] Administration Rosuvastatin Calcium 10 mg 09/26/20 21:00 10/07/20 21:06 Rosuvastatin 10 Mg Tab PO 10 mg QPM [place] Administration Senna/Docusate Sodium 2 tab 09/26/20 09:00 10/08/20 09:06 Senokot S 8.6-50 Mg Tab PO 2 tab BID [place] Administration Tramadol HCl 100 mg 09/25/20 19:16 10/03/20 10:11 Tramadol Hcl 50 Mg Tab PO 100 mg Q6H PRN Administration Moderate Pain (4-6) - Exam General Appearance: awake alert ENT: normocephalic atraumatic Neck: supple, no JVD Respiratory: normal chest expansion Extremities: no cyanosis Neurological: cranial nerve grossly intact, no new deficit Hosp A/P - Plan Diabetes mellitus type 2 Hypertension Hyperlipidemia Hypokalemia Restless leg syndrome History of breast cancer Urinary retention requiring Prasad catheterFoley catheter removed on 10/04 Obstructive sleep apneaon CPAP Morbid obesity with a BMI of 40.3 Chronic anemia suspected due to nutritional deficiency Plan: 10/08 Patient's blood pressure and sugar levels are fairly controlled. Pending placement. 10/07 Continue Lantus 60 units qhs. Continue Crestor, Toprol-XL, sliding scale and other supportive care. Home health care set up. Discharge planning. 10/06 Reduce Lantus to 60 units nightly. Continue aspirin for DVT prophylaxis per protocol. Continue Toprol-XL, Crestor and bowel regimen. Continue sliding scale. Continue postoperative care. Continue physical therapy and incentive spirometry 10/05 Continue Lantus 75 units with sliding scale. Replace potassium. Continue IV meropenem per infectious disease. Continue Toprol-XL, Requip and Crestor. Pain control. Continue bowel regimen. 10/04 Continue supportive care. Continue current dose of Lantus with sliding scale. Continue Crestor with Toprol-XL. Will continue physical therapy. Home health care set up at discharge. Continue antibiotics per ID. Incentive spirometer. DVT prophylaxis. 10/03 Continue antibiotics per ID. Continue current dose of Toprol-XL, Requip, Oli tor and Lantus. Patient did not receive Lantus last night. We will continue sliding scale. Will consult supportive employment case manager for home health care set up. Patient will continue 1 g Invanz daily until November 07. After that she will require Bactrim double strength 1 tablet twice daily
--- NOTE | 2020-10-08 15:43 | PDOC.MOPN ---
Interval History: Improved and waiting to go to Rehab - Vital Signs Vital Signs: Vital Signs (12 hours) Temp Pulse Resp BP BP Pulse Ox 10/08/20 12:11 98.0 F 78 18 103/60 95 10/08/20 08:22 98.3 F 67 16 125/74 99 Weight Admit Weight 220 lb 8 oz Weight 220 lb 8 oz - Physical Exam General: Alert, No acute distress HEENT: Atraumatic Neurological: Normal speech Psych/Mental Status: Mental status NL - Labs Result Diagrams: 10/08/20 05:53 10/08/20 05:53 Lab results: Laboratory Results - last 24 hr 10/08/20 12:12: POC Glucose 184 H 10/08/20 05:53: WBC 12.8 H, RBC 2.76 L, Hgb 8.6 L, Hct 26.6 L, MCV 96.3, MCH 31.3 H, MCHC 32.5, RDW 15.4 H, Plt Count 363, MPV 7.0 L, Neutrophils % 62.0, Lymphocytes % 23.4, Monocytes % 8.8, Eosinophils % 5.4, Basophils % 0.4, Neutrophils # 8.0 H, Lymphocytes # 3.0, Monocytes # 1.1 H, Eosinophils # 0.7, Basophils # 0.0 10/08/20 05:53: Sodium 142, Potassium 4.2, Chloride 103, Carbon Dioxide 30, [place] 13, BUN 25 H, Creatinine 1.02, Estimated GFR (MDRD) 53, Glucose 146 H, Calcium 8.5, Total Bilirubin 0.6, AST 65 H, ALT 52, Alkaline Phosphatase 69, Serum Total Protein 6.1, Albumin 2.9 L, Globulin 3.2, Albumin/Globulin Ratio 0.9 L 10/08/20 05:48: POC Glucose 133 H 10/07/20 21:01: POC Glucose 199 H Status: lab reviewed by me A/P - Problem (1) Breast cancer Current Visit: No Status: Chronic - Plan Plan: Tamoxifen has been on hold since patient was immobile working with PT now and awaiting rehab will resume and follow-up outpatient with Dr. Pruitt.
[2020-10-08] MEDS: HumaLOG 300 UNITS/3 ML VIAL SC PRN (17:31)
[2020-10-08] MEDS: rOPINIRole HCl 0.5 MG TAB PO SCH (20:22)
[2020-10-08] MEDS: Rosuvastatin 10 MG TAB PO SCH (20:22)
[2020-10-08] MEDS: Insulin Glargine 60 UNITS in Pre-Filled Syringe 1 EACH SC SCH (20:23)
[2020-10-09] MEDS: Meropenem 1 GM in Sodium Chloride 0.9% 100 ML IVPB SCH (01:12)
[2020-10-09 08:33] VITALS: TEMP 98.1
[2020-10-09] MEDS: Lactinex Tablet PO SCH (09:22)
[2020-10-09] MEDS: Magnesium Oxide 400 MG TAB PO SCH (09:23)
[2020-10-09] MEDS: Aspirin 81 mg Enteric Coated Tablet PO SCH (09:23)
[2020-10-09] MEDS: Ferrous Gluconate 324 MG TAB PO SCH (09:23)
[2020-10-09] MEDS: Multivitamin W/ Minerals 1 TAB PO SCH (09:23)
[2020-10-09] MEDS: Cyanocobalamin (Vitamin B-12) 1,000 MCG TAB PO SCH (09:23)
[2020-10-09] MEDS: Senokot S 8.6-50 MG TAB PO SCH (09:27)
[2020-10-09] MEDS ORDERED: MEROPENEM 1 GM/50 ML 1 GM in Premix Bag 1 BAG IVPB SCH (10:00)
[2020-10-09 12:11] VITALS: BP 123/75
[2020-10-09] MEDS ORDERED: Ertapenem 1 GM in Sodium Chloride 0.9% 100 ML IVPB SCH (14:00)
--- NOTE | 2020-10-09 22:31 | PDOC.HOSPP ---
- Subjective Encounter Date: 10/09/20 Encounter Time: 10:30 Subjective: Patient seen and examined for medical management. Denies any chest pain or shortness of breath. Pain controlled - Objective Vital Signs & Weight: Vital Signs (12 hours) Temp Pulse Resp BP Pulse Ox 10/09/20 11:01 98.1 F 81 16 123/75 99 Weight Admit Weight 220 lb 8 oz Weight 220 lb 8 oz I&O: 10/08/20 10/09/20 10/10/20 06:59 06:59 06:59 Intake Total 2240 1500 Balance 2240 1500 Result Diagrams: 10/08/20 05:53 10/08/20 05:53 Additional Labs: Accuchecks 10/09/20 10/09/20 11:06 05:16 POC Glucose 160 H 141 H Hospitalist ROS - Review of Systems Respiratory: denies: cough, dry, shortness of breath, hemoptysis, SOB with excertion, pleuritic pain, sputum, wheezing, other Cardiovascular: denies: chest pain, palpitations, orthopnea, paroxysmal noc. dyspnea, edema, light headedness, other - Exam General Appearance: NAD Neck: supple, no JVD Heart: RRR, no gallops Respiratory: no wheezes, no ronchi Gastrointestinal: soft, non-tender, normal bowel sounds Hosp A/P - Plan DVT proph w/SCDs Diabetes mellitus type 2 Hypertension Hyperlipidemia Hypokalemia Restless leg syndrome History of breast cancer Urinary retention requiring Prasad catheterFoley catheter removed on 10/04 Obstructive sleep apneaon CPAP Morbid obesity with a BMI of 40.3 Chronic anemia suspected due to nutritional deficiency Plan: Continue supportive care. Home health care has been arranged. Home antibiotics that are pending at this time. Will continue current dose of Lantus with standing scale. Will continue Toprol with Crestor and other medications as above. Will follow prn.
--- NOTE | 2020-10-10 14:31 | DIS ---
DATE OF ADMISSION: 09/25/2020 DATE OF DISCHARGE: 10/09/2020 DISCHARGE DISPOSITION: To home with home health. 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 OPERATIVE PROCEDURE: 1. Irrigation, debridement, and polyethylene swab of left hip. 2. Revision left total hip arthroplasty with antibiotic spacers. CONSULTANTS: 1. Dr. Ming Godfrey, Medicine Service. 2. [facility] in Anesthesia. BRIEF CLINICAL HISTORY: Emiliana is a 75-year-old female who underwent a left total hip arthroplasty within the last 4 to 6 weeks as an outpatient. She returned to the clinic with complaints of amplified pain and discomfort in the hip, was admitted to the hospital and underwent irrigation and debridement of left hip on hospital day one. Findings at the time were a large hematoma without consolidation, consistent with possible gram-negative infection. A polyethylene swab was performed since the patient was still within the 2- to 4-week postoperative period. Surgical cultures demonstrated colonization with E coli and Klebsiella species. Dr. Godfrey was consulted. Appropriate antibiotics were started and she failed to appreciably improve. Therefore, she was taken back to the operative suite about 6 days later for a full revision with antibiotic spacers and tobramycin implants. Postoperatively, she did relatively well. At the time of discharge, the patient is afebrile. She is ambulatory with assistance, tolerating regular diet, and voiding without difficulty. DISCHARGE MEDICATIONS: Please see medication reconciliation form. FOLLOWUP: Dr. Godfrey will follow the patient as an outpatient and continue treatments for suppression. We will be happy to see the patient on an as needed basis between now and her next scheduled appointment in 2 weeks. CONDITION ON DISCHARGE: Stable. PROGNOSIS: To be determined. Job ID: [id number]
--- NOTE | 2020-10-11 02:58 | PQF ---
Dear : Lee Wagner Date 10/11/2020 Please exercise your independent, professional judgment in responding to the clarification form. Clinical indicators are provided on the bottom of this form for your review Can you please further clarify the diagnosis of the patient? Please check appropriate box(es): [ ] Sepsis [ ] Localized infection w/o sepsis [ ] Other diagnosis please specify [ x ] Unable to determine - I was following for diabetes management. Please forward to primary service In addition, please specify: Present on Admission (POA): [ ] Yes [ ] No [ ] Unable to determine Physician Signature: Date/Time: For continuity of documentation, please document condition throughout progress notes and discharge summary. Thank You. To be completed by CDI/Coding staff for physician review: Present Clinical Indicators - Signs / Symptoms / Labs Results and Location in Medical Record [ x ] Left hip drainage H and P pg.1 [ x ] VS: BP: 02425, T: 97.9, HR: 79 H and P pg.1 [ x ] s/p incision and drainage and washout of left total hip replacement H and P pg.3 [ x ] Bloody drainage to her surgical site. Infection vs hematoma Consult pg.4 [ x ] WBC: 15.2H, 14.8H, 18.5H, 18.7H, 14.8H, 14.8H Laboratory [ x ] Bacterial culture- E.Coli. Klebsiella pneumoniae Microbiology [ x ] Injected total hip replacement Op report pg.1 Present Risk Factors Results and Location in Medical Record [ x ] Lest hip arthroplasty site hematoma and infection Consult pg.1 Dr. Godfrey [ x ] Obesity Consult pg.1 Dr. Godfrey [ x ] DM Consult pg.1 Dr. Godfrey [ x ] HTN Consult pg.1 Dr. Godfrey Present Treatments Results and Location in Medical Record [ x ] IV Fluids MAR [ x ] PICC Interventional procedure 10/01 [ x ] Vancomycin 1.5gm IV MAR [ x ] Infectious Consult Dr. Godfrey [ x ] Bacterial culture Microbiology [ x ] I and D and Left hip revision OP report pg.1 CDS/Research Nurse Signature: GalenAlejandro ortizmorenita Lewis Phone #: ext [phone] Date 10/11/20 This is a permanent part of the Medical Record [facility]
--- NOTE | 2020-10-11 18:05 | PQF ---
Dear : Skyler Luque Date 10/11/2020 Please exercise your independent, professional judgment in responding to the clarification form. Clinical indicators are provided on the bottom of this form for your review Can you please further clarify the diagnosis of the patient? Please check appropriate box(es): [ ] Sepsis [ x ] Localized infection without sepsis [ x ] Other diagnosis infected L total hip replacement [ ] Unable to determine Physician Signature: Date/Time: For continuity of documentation, please document condition throughout progress notes and discharge summary. Thank You. To be completed by CDI/Coding staff for physician review: Present Clinical Indicators - Signs / Symptoms / Labs Results and Location in Medical Record [ ] Left hip drainage H and P pg.1 [ ] VS: BP: 104/52 T: 97.9, HR: 79 H and P pg.1 [ ] s/p incision and drainage and washout of left total hip replacement H and P pg.3 [ ] Bloodily drainage to her surgical site, infection vs hematoma Consult pg4 [ ] WBC: 15.2H,14.8H,18.5H,14.7H, 14.8H,14.8H Laboratory [ ] Bacterial culture- E.Coli, Klebsiella pneumoniae Microbiology [ ] Infected total hip replacement OP report pg.1 Present Risk Factors Results and Location in Medical Record [ ] Left hip arthroplasty site hematoma and infection Consult pg.1 Dr. Godfrey [ ] Obesity Consult pg.1 Dr. Godfrey [ ] DM Consult pg.1 Dr. Godfrey [ ] HTN Consult pg.1 Dr. Godfrey Present Treatments Results and Location in Medical Record [ ] IV Fluids MAR [ ] PICC line placement Interventional procedure note 10/01 [ ] Vancomycin 1.5gm IV MAR [ ] Infectious Consult Dr. Godfrey [ ] Bacterial culture Microbiology [ ] I and D and left hip revision OP report pg.1 [ ] WBC monitoring Laboratory CDS/Electronic Science Teacher Signature: Lyndon Maguire Phone #: ext [phone] Date 10/11/2020 This is a permanent part of the Medical Record [facility]
== END 2020-10-09 16:31 | disposition home health service (06) | DRG 467 ==
LOC: SDC 13:51 → SURG A 19:14
PROVIDERS: ADMIT Orthopaedic Surgery; ATTEND Orthopaedic Surgery
PROC: 0SUE09Z Supplement Left Hip Joint, Acetabular Surface with Liner, Open Approach (ICD-10-PCS; 2020-09-25)
PROC: 02HV33Z Insertion of Infusion Device into Superior Vena Cava, Percutaneous Approach (ICD-10-PCS; 2020-09-25)
PROC: B548ZZA Ultrasonography of Superior Vena Cava, Guidance (ICD-10-PCS; 2020-09-25)
PROC: 0SRS01Z Replacement of Left Hip Joint, Femoral Surface with Metal Synthetic Substitute, Open Approach (ICD-10-PCS; 2020-09-25)
PROC: 0SPB0JZ Removal of Synthetic Substitute from Left Hip Joint, Open Approach (ICD-10-PCS; 2020-09-25)
PROC: 30233N1 Transfusion of Nonautologous Red Blood Cells into Peripheral Vein, Percutaneous Approach (ICD-10-PCS; 2020-09-26)
PROC: 0T9B70Z Drainage of Bladder with Drainage Device, Via Natural or Artificial Opening (ICD-10-PCS; 2020-09-29)
PROC: 0SRB0J9 Replacement of Left Hip Joint with Synthetic Substitute, Cemented, Open Approach (ICD-10-PCS; principal; 2020-10-02)
PROC: 0SPB09Z Removal of Liner from Left Hip Joint, Open Approach (ICD-10-PCS; 2020-10-02)
PROC: 0SPB0JZ Removal of Synthetic Substitute from Left Hip Joint, Open Approach (ICD-10-PCS; 2020-10-02)
DX: T84.52XA Infection and inflammatory reaction due to internal left hip prosthesis, initial encounter (principal); D62 Acute posthemorrhagic anemia; Z68.41 Body mass index [BMI] 40.0-44.9, adult; T84.83XA Hemorrhage due to internal orthopedic prosthetic devices, implants and grafts, initial encounter; Z96.642 Presence of left artificial hip joint; Z20.822 Contact with and (suspected) exposure to COVID-19; E11.9 Type 2 diabetes mellitus without complications; E78.5 Hyperlipidemia, unspecified; I10 Essential (primary) hypertension; G25.81 Restless legs syndrome; G47.33 Obstructive sleep apnea (adult) (pediatric); B96.20 Unspecified Escherichia coli [E. coli] as the cause of diseases classified elsewhere; B96.1 Klebsiella pneumoniae [K. pneumoniae] as the cause of diseases classified elsewhere; M19.90 Unspecified osteoarthritis, unspecified site; E66.01 Morbid (severe) obesity due to excess calories; Z96.659 Presence of unspecified artificial knee joint; Y83.8 Other surgical procedures as the cause of abnormal reaction of the patient, or of later complication, without mention of misadventure at the time of the procedure; D53.9 Nutritional anemia, unspecified; R33.9 Retention of urine, unspecified; D63.8 Anemia in other chronic diseases classified elsewhere; Z85.3 Personal history of malignant neoplasm of breast; Z88.8 Allergy status to other drugs, medicaments and biological substances; Z79.4 Long term (current) use of insulin; Z79.82 Long term (current) use of aspirin; Z79.899 Other long term (current) drug therapy; E87.6 Hypokalemia
CPT/HCPCS: 36415; 36416; 36430; 36569; 80048; 80053; 80202; 81001; 82607; 82728; 82746; 83540; 83550; 83605; 83735; 85025; 85027; 85046; 85610; 85730; 86850; 86900; 86901; 87070; 87077; 87086; 87186; 87205; C1713; C1751; C1776; J0690; J1170; J1335; J1644; J1815; J1940; J2185; J2405; J2704; J3010; J3260; J3370; J3490; P9016; P9045; P9047; S0028; U0002

== ENCOUNTER 2020-12-12 13:45 | Outpatient (CLI) | payer MEDICARE | END 2020-12-12 13:46 | disposition home or self-care (01) | LOC: BICRAD 13:45 | PROVIDERS: ATTEND Family Medicine | DX: R06.02 Shortness of breath (principal); E11.9 Type 2 diabetes mellitus without complications | CPT/HCPCS: 36415; 71046; 80053; 83036; 85025 ==

== ENCOUNTER 2021-09-02 10:55 | Outpatient (CLI) | payer MEDICARE | END 2021-09-02 10:56 | disposition home or self-care (01) | LOC: BICMAMMO 10:55 | PROVIDERS: ATTEND Family Medicine | DX: Z12.31 Encounter for screening mammogram for malignant neoplasm of breast (principal); Z80.3 Family history of malignant neoplasm of breast; Z85.3 Personal history of malignant neoplasm of breast; Z98.890 Other specified postprocedural states | CPT/HCPCS: 77063; 77067 ==

== ENCOUNTER 2022-07-11 12:54 | Outpatient (CLI) | payer MEDICARE | END 2022-07-11 12:55 | disposition home or self-care (01) | LOC: BICRAD 12:54 | PROVIDERS: ATTEND Family Medicine | DX: L08.9 Local infection of the skin and subcutaneous tissue, unspecified (principal); M19.071 Primary osteoarthritis, right ankle and foot | CPT/HCPCS: 36415; 80053; 80061; 82043; 83036; 85025; 86304 ==

== ENCOUNTER 2023-08-31 11:18 | Outpatient (CLI) | payer MEDICARE | END 2023-08-31 11:19 | disposition home or self-care (01) | LOC: BICMAMMO 11:18 | PROVIDERS: ATTEND Family Medicine | DX: Z12.31 Encounter for screening mammogram for malignant neoplasm of breast (principal); C54.1 Malignant neoplasm of endometrium; N64.89 Other specified disorders of breast; Z80.3 Family history of malignant neoplasm of breast; Z85.3 Personal history of malignant neoplasm of breast; Z90.11 Acquired absence of right breast and nipple | CPT/HCPCS: 71046; 77063; 77067 ==

== ENCOUNTER 2023-09-08 14:32 | Outpatient (CLI) | payer MEDICARE | END 2023-09-08 14:33 | disposition home or self-care (01) | LOC: BICMAMMO 14:32 | PROVIDERS: ATTEND Family Medicine | DX: N64.89 Other specified disorders of breast (principal) | CPT/HCPCS: 77065; G0279 ==

== ENCOUNTER 2024-08-08 13:24 | Outpatient (CLI) | payer MEDICARE | END 2024-08-08 13:25 | disposition home or self-care (01) | LOC: BICRAD 13:24 | PROVIDERS: ATTEND Family Medicine | DX: R09.89 Other specified symptoms and signs involving the circulatory and respiratory systems (principal) | CPT/HCPCS: 71046 ==